=== PATIENT | female | born 1945 | race Caucasian/White ===

== ENCOUNTER 2019-04-12 22:17 | Inpatient (IN) | payer MEDICARE, OTHER ==
[~2019-04-12] VITALS: Ht 165.1 cm; Wt 84.4 kg
[2019-04-12 22:15] VITALS: BP 143/73
[2019-04-12] MEDS ORDERED: NS 1,000 ML IV SCH (22:46)
[2019-04-12] MEDS ORDERED: GLUCAGON FOR INJ 1 MG VIAL (J1610) SC PRN (23:00)
[2019-04-12] MEDS ORDERED: DEXTROSE 50% 50 ML SYRINGE IV PRN (23:00)
[2019-04-12] MEDS ORDERED: IPRATROPIUM 0.5MG/ALBUTEROL 2.5MG INH SOL UD 3ML (DUONEB)(J7620) NEB PRN (23:00)
[2019-04-12] MEDS ORDERED: GLUCOSE 4 GM CHEW TABLET PO PRN (23:00)
[2019-04-12 23:44] VITALS: BP 96/51
[2019-04-12 23:45] LABS: ABG BASE EXCESS 6.6 (-2.0-2.0); ABG HCO3 36.6 MEQ/L (22.0-26.0); ABG PARTIAL PRESSURE CO2 84.7 mmHg (35.0-45.0); ABG PARTIAL PRESSURE O2 107.5 mmHg (75.0-100.0); ABG STANDARD HCO3 30.5 MEQ/L (22.0-26.0); ABG TOTAL CO2 39.2 MEQ/L (23.0-31.0); ABG pH (ARTERIAL) 7.254 UNITS (7.350-7.450)
[2019-04-12 23:50] VITALS: BP 83/49
[2019-04-12 23:52] LABS: HEMATOCRIT 40.8 % (36.0-47.0); HEMOGLOBIN 12.7 g/dl (12.0-15.5); MEAN CORPUSCULAR HEMOGLOBIN 31.8 pg (27.0-33.0); MEAN CORPUSCULAR HGB CONC 31.1 g/dl (32.0-36.5); MEAN CORPUSCULAR VOLUME 102.3 fl (80.0-96.0); PLATELET COUNT, AUTOMATED 221 10^3/uL (150-450); RED BLOOD COUNT 3.99 10^6/uL (4.00-5.40); WHITE BLOOD COUNT 15.1 10^3/uL (4.0-10.0)
[2019-04-12 23:57] VITALS: BP 75/40
[2019-04-13] VITALS (48 sets, daily range): BP systolic 70–157; BP diastolic 32–74; O2SAT 87–97
[2019-04-13] MEDS ORDERED: NS 500 ML IV ONE
[2019-04-13 00:12] LABS: BLOOD UREA NITROGEN 22 MG/DL (7-18); CALCIUM LEVEL 7.7 MG/DL (8.8-10.2); CARBON DIOXIDE LEVEL 38 MEQ/L (21-32); CHLORIDE LEVEL 95 MEQ/L (98-107); CREATININE FOR GFR 0.91 MG/DL (0.55-1.30); GLOMERULAR FILTRATION RATE > 60.0 (>39); GLUCOSE, FASTING 167 MG/DL (70-100); POTASSIUM SERUM 4.2 MEQ/L (3.5-5.1); SODIUM LEVEL 137 MEQ/L (136-145)
--- NOTE | 2019-04-13 00:49 | REP ---
Clinical: COPD exacerbation. Comparison: 01/02/2015. Findings: Mediastinum and cardiac silhouette are normal. Lung billings demonstrate diffuse chronic-appearing interstitial changes and COPD. No focal consolidation. No effusion. No pneumothorax. Skeletal structures grossly intact. Impression: Chronic changes. No focal consolidation. Electronically Signed by Anurag Vann MD 04/13/2019 12:39 A
[2019-04-13 01:16] LABS: MAGNESIUM LEVEL 2.5 MG/DL (1.8-2.4); TROPONIN I 0.04 NG/ML (< 0.10)
[2019-04-13] MEDS ORDERED: PROAAER10 INH (01:56)
[2019-04-13] MEDS ORDERED: ATOR40TA75 PO (01:56)
[2019-04-13] MEDS ORDERED: OMEP-218 PO (01:56)
[2019-04-13] MEDS ORDERED: OLME20TA2 PO (01:56)
[2019-04-13] MEDS ORDERED: BREO1INH3 INH (01:56)
[2019-04-13] MEDS ORDERED: INCR1INH INH (01:56)
[2019-04-13] MEDS ORDERED: ATEN50TA2 PO (01:56)
[2019-04-13] MEDS ORDERED: METF500T13 PO (01:56)
[2019-04-13] MEDS ORDERED: IPRA6SP (01:56)
[2019-04-13] MEDS ORDERED: FURO40TA2 PO (01:56)
[2019-04-13] MEDS ORDERED: ESCI20TA PO (01:56)
[2019-04-13] MEDS ORDERED: RANI15TA PO (01:56)
[2019-04-13] MEDS: IPRATROPIUM 0.5MG/ALBUTEROL 2.5MG INH SOL UD 3ML (DUONEB)(J7620) NEB SCH ×4 (02:17→20:22)
[2019-04-13] MEDS: methylPREDNISolone INJ 125 MG/2 ML VIAL (J2930) IV SCH ×3 (02:49→17:41)
--- NOTE | 2019-04-13 03:30 | HPEPDOC ---
General Date of Admission Apr 12, 2019 at 22:17 Date of Service: Apr 12, 2019 Other Providers Primary care provider: Kathy Dooley Attending Physician: YONY SHOOK MD Chief Complaint The patient is a 73-year-old female admitted with a reason for visit of Respir atory Failure. Source: Family, Old records Exam Limitations: Clinical conditions Associated Symptoms: Unobtainable History of Present Illness Ms. Ang is a 73-year-old female who presents to [facility] as a direct admission from [facility]. Information regarding her presentation and admission to [facility] and transfer to [facility] is obtained from chart review. The patient had presented to [facility] with respiratory distress that had been worsening. Apparently she was having difficulty speaking and was only speaking in single words. Her shortness of breath was worsened by cough which appeared to improve with oxygen and sitting upright. She denied fevers, chills, chest pain. [facility] ED evaluation revealed elevated BP at 177/87 with a respiratory rate of 24 and oxygenation of 48%. An ABG revealed a pH of 7.16, pCO2 121.4, pO2 203.7. A CBC revealed a WBC 15.9, and a BMP revealed a BUN/Cr 20/0.6. BNP 632. [facility] ED ordered BiPAP, Duonebs, SoluMedrol, and Lasix after obtaining a CXR. Patient was also administered Ceftriaxone and Azithromycin. Decision was made to transfer patient to [facility] for further evaluation and consultation with pulmonary/critical care. ABG prior to transfer was pH 7.23, pCO2 99.6, pO2 82. Hospitalist, Dr. Shook, was the accepting physician at [facility]. Patient was previously hospitalized at [facility] in 2016 for similar symptoms. She had reported at that time shortness of breath, wheezing and bilateral lower extremity swelling over the prior several days. She had reported that her allergies had worsened and that she had developed a post-nasal drip. Furthermore, the patient reported a dry cough with clear mucous production. She had been using her nebulizer, but it was not providing relief. Apparently she had been speaking to a family member and they had noted that she appeared out of breath and was wheezing. The patient had measured her oxygen saturation and it ranged 87-88% on 2L NC. Patient said that she did wear oxygen at night, but had been wearing it throughout the day over the prior several days. She was a dmitted at that time for a COPD exacerbation and to rule out CHF. Home Medications Scheduled Atenolol (Atenolol) 50 Mg Tablet, 50 MG PO DAILY, (Reported) Atorvastatin Calcium (Atorvastatin Calcium) 40 Mg Tablet, 40 MG PO DAILY, (Reported) Escitalopram Oxalate (Escitalopram Oxalate) 20 Mg Tablet, 20 MG PO DAILY, (Reported) Fluticasone/Vilanterol (Breo Ellipta 200-25 Mcg INH) 1 Each Blst.w.dev, 1 PUFF INH DAILY, (Reported) Furosemide (Furosemide) 40 Mg Tablet, 40 MG PO BID, (Reported) MORNING AND NOON Ipratropium [place] (Ipratropium [place]) 15 Ml [place], 2 SPRAY NA BID, (Reported) Metformin HCl (Metformin HCl) 500 Mg Tablet, 500 MG PO DAILY, (Reported) Olmesartan Medoxomil (Olmesartan Medoxomil) 20 Mg Tablet, 40 MG PO DAILY, (Reported) Omeprazole (Omeprazole) 20 Mg Capsule.dr, 20 MG PO DAILY, (Reported) Ranitidine Hcl (Ranitidine HCl) 150 Mg Tablet, 1 TAB PO DAILY, (Reported) Umeclidinium [place] (Incruse Ellipta) 62.5 Mcg Blst.w.dev, 1 PUFF INH DAILY, (Reported) Scheduled PRN Albuterol Sulfate (Proair Hfa) 8.5 Gm Hfa.aer.ad, 2 PUFF INH Q4H PRN for SHORTNESS OF BREATH, (Reported) Allergies Coded Allergies: Penicillins (Verified Allergy, Severe, 04/13/19) shellfish derived (Verified Allergy, Severe, 04/13/19) Sulfa (Sulfonamide Antibiotics) (Verified Allergy, Intermediate, 04/13/19) Past Medical History Medical History 1. Anxiety 2. PUD 3. DM 4. GERD 5. DLP 6. COPD, emphysema 7. HTN 8. Pulmonary HTN 9. Allergies 10. Arthritis 11. Tobacco dependence Surgical History 1. Appendectomy 2. Cholecystectomy 3. Ectopic 4. Hysterectomy Family History Mother: Lung cancer Social History * Smoker: former Smoker (< 1/2 PPD), current smoker Alcohol: Denies Drugs: denies Patient lives independently with , Sarmad. They have been for 57 years. 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 They live in [place]. She is a former smoker of < 1/2 PPD and smoked for > 40 years. A-FIB/CHADSVASC A-FIB History Current/History of A-Fib/PAF?: No Review of Systems Other systems Unobtainable, although patient does indicate that she has no pain. Physical Examination General Exam: Positive: Cooperative Eye Exam: Positive: PERRLA, Conjunctiva & lids normal, EOMI; Negative: Sclera icteric, Ptosis ENT Exam: Positive: Atraumatic, Nares Patent Neck Exam: Positive: Supple; Negative: thyromegaly, Lymphadenopathy Chest Exam: Positive: Rhonchi, Diminished, Other (BiPAP in place); Negative: Clear to auscultation, Normal air movement Heart Exam: Positive: Rate Normal, Regular Rhythm, Normal S1, Normal S2; Negative: Gallops, Murmurs, Rubs Telemetry: Positive: Sinus Abdomen Exam: Positive: BS Hypoactive, Soft; Negative: Tenderness, Hepatospenomegaly, Mass, Hernia Extremity Exam: Positive: Normal pulses; Negative: Clubbing, Cyanosis, Edema, Tenderness, Swelling Skin Exam: Negative: Rash, Lesion Other physical findings 1. Portable chest x-ray - Chronic changes. No focal consolidation. Vital Signs Vital Signs Date Time Temp Pulse Resp B/P (MAP) Pulse Ox O2 Delivery O2 Flow Rate FiO2 04/12/19 22:41 40 04/12/19 22:15 97.4 87 22 143/73 (96) 98 Height (in): 65 Weight (kg): 81 BMI (kg): 29.7 Plan / VTE VTE Prophylaxis Ordered?: Yes (Lovenox 40mg SQ daily) Plan Plan 1. Acute hypercarbic respiratory failure 2/2 COPD exacerbation 2/2 viral syndrome BiPAP, pulmonology/critical care consulted ABG - pH 7.25, pCO2 84.7, pO2 107.5 Douneb's scheduled and PRN Methylprednisolone 60mg IV Q8H Smoking cessation counseling Ceftriaxone 1gm IV Q24H empirically Sputum gram stain and culture, respiratory panel Procalcitonin DNR/DNI (no central line, no pressor support, medications as needed for anxiety/agitation) HOB > 30, aspiration precautions Holding Incruse and BREO Monitor daily labs (leukocytosis --> although possibly secondary to steroids) 2. DM SSI Q6H, FBSB Q6H, hypoglycemic protocol NS @ 75 mLs/hr Holding oral hypoglycemic medications 3. Depression Continue Escitalopram 40mg PO daily 4. HTN Holding Furosemide and Olmesartan due to low blood pressures Continue Atenolol 50mg PO daily 6. DLP Holding Atorvastatin due to NPO 7. GERD Holding Ranitidine and Omeprazole due to NPO Disposition Admit: ICU Anticipated hospitalization: 2 nights Consult: Pulmonology/critical care, Dr. Billy IVF: Initiate (NS @ 75 mLs/hr) Diet: Make NPO Activity: Bedrest Therapy: PT Medications: Start Antibiotics (Ceftriaxone 1gm IV Q24H), Start Steroids (Methylprednisolone 60mg IV Q8H) Respiratory: Other Respiratory (smoking cessation counseling) Diagnostics: Check Labs, Repeat Labs in AM, Obtain Cultures, Other Diagnostics (Telemetry Q48H) Anticipated Discharge: Home Advanced Directives: Do Not Resuscitate (DNR), Do Not Intubate (DNI) GME ATTESTATION GME ATTESTATION My faculty preceptor for this patient encounter was physically present during the encounter and was fully available. All aspects of the patient interview, examination, medical decision making process, and medical care plan development were reviewed and approved by the faculty preceptor. The faculty preceptor is aware and concurs with the plan as stated in the body of this note and will attest to such by his/her cosignature. ATTENDING NOTE ATTENDING ATTESTATION: I performed a history and physical examination of the patient and discuss the management with the resident/SMOKE ROOM OPERATOR. I reviewed the resident's note and agree with the documented findings and plan of care. KATHY ALLAN DO Apr 12, 2019 23:37 YONY SHOOK MD Apr 13, 2019 19:23
[2019-04-13 03:54] LABS: BASO % 0.2 % (0.0-1.0); LYMPH # 0.6 10^3/uL (1.5-4.5); LYMPH % 3.7 % (24.0-44.0); MONO # 0.3 10^3/uL (0.0-0.8); MONO % 1.8 % (0.0-5.0); NEUTROPHILS % 93.4 % (36.0-66.0)
[2019-04-13 04:47] LABS: HEMATOCRIT 41.1 % (36.0-47.0); HEMOGLOBIN 12.7 g/dl (12.0-15.5); MEAN CORPUSCULAR HEMOGLOBIN 31.7 pg (27.0-33.0); MEAN CORPUSCULAR HGB CONC 30.9 g/dl (32.0-36.5); MEAN CORPUSCULAR VOLUME 102.5 fl (80.0-96.0); PLATELET COUNT, AUTOMATED 213 10^3/uL (150-450); RED BLOOD COUNT 4.01 10^6/uL (4.00-5.40); WHITE BLOOD COUNT 13.3 10^3/uL (4.0-10.0)
[2019-04-13 05:14] LABS: BLOOD UREA NITROGEN 21 MG/DL (7-18); CALCIUM LEVEL 7.7 MG/DL (8.8-10.2); CARBON DIOXIDE LEVEL 37 MEQ/L (21-32); CHLORIDE LEVEL 95 MEQ/L (98-107); CREATININE FOR GFR 0.72 MG/DL (0.55-1.30); GLOMERULAR FILTRATION RATE > 60.0 (>39); GLUCOSE, FASTING 176 MG/DL (70-100); POTASSIUM SERUM 4.2 MEQ/L (3.5-5.1); SODIUM LEVEL 136 MEQ/L (136-145)
[2019-04-13] MEDS: HumaLOG INSULIN (NovoLOG) PER UNIT SC SCH ×5 (06:11→23:57)
[2019-04-13 06:13] LABS: ABG BASE EXCESS 6.4 (-2.0-2.0); ABG HCO3 37.4 MEQ/L (22.0-26.0); ABG O2 SATURATION 98.8 % (95.0-99.0); ABG PARTIAL PRESSURE CO2 95.3 mmHg (35.0-45.0); ABG PARTIAL PRESSURE O2 140.7 mmHg (75.0-100.0); ABG STANDARD HCO3 30.3 MEQ/L (22.0-26.0); ABG TOTAL CO2 40.4 MEQ/L (23.0-31.0); ABG pH (ARTERIAL) 7.212 UNITS (7.350-7.450)
--- NOTE | 2019-04-13 07:08 | CR ---
DATE OF CONSULTATION: 04/13/2019 CHIEF COMPLAINT: Altered mental status, shortness of breath. HISTORY OF PRESENT ILLNESS: Ms. Ang is a 73-year-old female with a past medical history of chronic obstructive pulmonary disease (COPD) Gold stage 4 with chronic hypoxemic respiratory failure on 3 liters nasal cannula oxygen supplementation, obstructive sleep apnea (ASAEL) noncompliant with C-PAP, hypertension, hyperlipidemia, gastroesophageal reflux disease, nicotine dependence, pulmonary hypertension, and congestive heart failure (CHF) who presented with complaints of increasing weakness and shortness of breath. History was obtained from the patient's family and the chart as she is unable to provide a history currently. As per the family, the patient has had notable decline in her breathing for the past few months and also for the past few years. She had previously been hospitalized for her COPD for an exacerbation in [place] 3 years ago. Since then, they had noticed that she continues to have difficulty with her breathing and increasing functional limitation. She is also still currently smoking. The patient has been requiring frequent courses of steroids for her COPD. Most recently, she had been treated with a prednisone taper in March after being seen at our pulmonary office. The patient was still completing the prednisone taper. She was on approximately 5 mg or so the family believes. In the past few days, however, she had been complaining of increasing fatigue and weakness. She also had started noticing some diarrhea as well. When the family went to check on her today, the patient appeared to be in some respiratory distress as well as to be satting to the 80s while on her nasal cannula oxygen supplementation. The patient was initially refusing to go to the hospital, but after further discussion with the family she was agreeable to go to the hospital. The patient is the primary caregiver for her who is wheelchair bound. There is an aide in the house during the day, but there is no aide at night time. As per the family, the patient had not reported any fevers or chills. No chest pain. She does have a cough, but denied any changes in her sputum. She has chronic shortness of breath and dyspnea on exertion which they are unclear if it has been worsening, but they do feel she has been more winded recently. She does have a history of lower extremity edema for which she takes Lasix 40 mg twice a day. However, the family does feel that she has had increasing lower extremity edema in the past few days as well. The patient has been compliant with her maintenance inhalers. She has been using her albuterol nebulizer treatments more frequently than recommended. She also will start a treatment and then go take a break and smoke a cigarette and then come back and finish her nebulizer treatment. The patient was brought to [facility] where she was found to have acute on chronic hypercarbic respiratory failure. She was placed on BiPap in the ED and the patient was given Solu-Medrol, nitro paste and Lasix IV. She was also given ceftriaxone and azithromycin for antibiotics and then transferred to [facility] for further care. PAST MEDICAL/SURGICAL HISTORY: 1. Gold stage 4 COPD with chronic hypoxemic respiratory failure on nasal cannula oxygen. 2. Diabetes. 3. Hypertension. 4. Hyperlipidemia. 5. Chronic rhinitis with seasonal allergies. 6. Gastroesophageal reflux disease. 7. ASAEL noncompliant with C-PAP. 8. Nicotine dependence. 9. Pulmonary hypertension and CHF. 10. Tonsillectomy. 11. Cholecystectomy. 12. Hysterectomy. 13. Appendectomy. HOME MEDICATIONS: - Breo - Benicar - Lexapro - furosemide 40 mg twice a day - Lipitor - ProAir - Glucophage - albuterol - atenolol - omeprazole - Incruse - Tylenol - C-PAP ALLERGIES: - SULFA - PENICILLIN - SHRIMP SOCIAL HISTORY: The patient is a current active smoker, approximately 6-10 cigarettes a day, had previously smoked up to 2 or 3 packs a day since she was a teenager. FAMILY HISTORY: Mother from lung cancer. Father with a history of cirrhosis and history of alcohol disease. PHYSICAL EXAMINATION: Vitals: Temperature 98.1, pulse 78, respirations 22, blood pressure 82/37, O2 sat 88% on BiPap. General: The patient is an overweight female who is lying in the bed, is lethargic, opening eyes to verbal or tactile stimuli and answering some questions, but confused and very drowsy. HEENT: Normocephalic, atraumatic. Pupils are equal and reactive to light bilaterally. Moist mucous membranes. The patient is edentulous. Neck is supple. Trachea is midline. No palpable adenopathy. Cardiovascular: Regular rate and rhythm. Normal S1 and S2. Unable to appreciate any murmurs. Distant heart sounds. Pulmonary: Diminished breath sounds bilaterally with some coarse rhonchorous wheezes bilaterally. Abdomen is obese, mildly distended and nontender to palpation. Lower Extremities: There is some trace pitting edema to the bilateral lower extremities. LABORATORY DATA: WBC 15.1, hemoglobin 12.7, platelets 221. Chemistry: Sodium 137, potassium 4.2, chloride 95, bicarb 38, BUN 22, creatinine 0.91. Initial ABG at [facility] showed a pH of 7.16, pCO2 of 121 and a pO2 of 203.7. Repeat ABG on BiPap showed pH 7.23, pCO2 of 99.6 and pO2 of 82.0. The ABG here on BiPap in AVAPS mode showed pH 7.254, pCO2 of 84.7 and a pO2 of 107.5. IMAGING: Chest x-ray shows hyperinflated lungs with chronic emphysematous changes. No focal opacities or infiltrates. Some increased interstitial markings and evidence of prior granulomatous disease. ASSESSMENT/PLAN: Ms. Ang is a 73-year-old female with a history of end-stage COPD with chronic hypoxemic respiratory failure, hypertension, hyperlipidemia, pulmonary hypertension with CHF, and ASAEL noncompliant with C-PAP who presented initially to [facility] with complaints of increased lethargy, altered mental status and shortness of breath. The patient was found there to have acute on chronic hypercarbic respiratory failure likely secondary to COPD exacerbation. She was given Solu-Medrol, nebulizer treatments as well as Lasix and nitro paste, given broad spectrum antibiotics with Ceftriaxone and azithromycin and placed on BiPap and transferred here for further management. The patient had ABGs done on BiPap at [facility] which showed some slight improvement in her respiratory acidosis. Here in the intensive care unit (ICU), she continues to be lethargic, although improved apparently from her initial presentation. She is arousable and able to answer some questions, but is still very sleepy and will fall right back to sleep. Her repeat ABG here done on AVAPS mode continues to show significant respiratory acidosis. At this point, she has been on BiPap for a few hours and while her initial ABG is somewhat improved from her initial it is not significantly improved from her previous ABGs. Therefore, given her ABG and her mental status, the patient may need to be intubated and placed on mechanical ventilation, however, the patient's children are at the bedside including her son who is her secondary healthcare proxy and there has been extensive discussion with the family including her sister who is an RN. They had had previously had discussions with the patient about her goals of care and she had previously stated that she would not want intubation and mechanical ventilation if she would have a prolonged course of intubation. Given her decline in her respiratory status in the past few months and functionality that the family has noted as well as with her recurrent exacerbations requiring prednisone and her end-stage COPD with likely concomitant pulmonary hypertension, if she were to be intubated the patient will likely have a prolonged course of intubation and may be difficult to extubate. Given all that and given her previous history as well of being resistant to medical treatment and her ongoing smoking, the decision was made by the family and her healthcare proxy that she should be DO NOT RESUSCITATE (DNR) and DO NOT INTUBATE (DNI). The patient has also become hypotensive and discussion with the family was for no central line and no pressors at this time as well. - Cont AVAPs with TV 460, IPAP 10-25 cm H2O and EPAP 5 with RR 18 - f/u repeat ABG in the morning - Continue Solu-Medrol and DuoNebs for her acute COPD exacerbation. - Can continue with azithromycin for acute COPD exacerbation. Would discontinue ceftriaxone for now as there is no evidence of any focal opacities or infiltrate on her chest x-ray. She does have a leukocytosis, but she has not had any fevers. - family is agreeable to medications for anxiety or agitation if needed. - Will give her a bolus of fluids for her hypotension. She was previously given Lasix given evidence of some increased interstitial markings which may be secondary to her chronic emphysematous changes. She does have an elevated BNP at [place], however, suspect she has a component of chronic right-sided heart failure and pulmonary hypertension from her untreated ASAEL and her chronic hypoxemic lung disease. Would hold off on further diuretics at this time however given her hypotension. Deep vein thrombosis (DVT) prophylaxis with Lovenox. Code status DNR/DNI. Medical orders for life-sustaining treatment (MOLST) is filled in the chart. Total critical care time spent, not including any procedures approximately 1 hour and 50 minutes. MTDD
[2019-04-13] MEDS: ESCITALOPRAM OXALATE 10 MG TAB (LEXAPRO) PO SCH (09:00)
[2019-04-13] MEDS: DOXYCYCLINE HYCLATE 100 MG in D5W MINI-BAG PLUS 100 ML IV SCH ×2 (09:11→19:32)
[2019-04-13] MEDS: ENOXAPARIN 40 MG/0.4 ML SYRINGE (J1650) SC SCH (09:12)
[2019-04-13] MEDS: NICOTINE 7 MG/24 HR TRANSDERMAL TD SCH (09:13)
[2019-04-13 11:10] LABS: ABG HCO3 36.8 MEQ/L (22.0-26.0); ABG O2 SATURATION 94.2 % (95.0-99.0); ABG PARTIAL PRESSURE O2 67.9 mmHg (75.0-100.0); ABG STANDARD HCO3 31.7 MEQ/L (22.0-26.0); ABG TOTAL CO2 39.1 MEQ/L (23.0-31.0); ABG pH (ARTERIAL) 7.312 UNITS (7.350-7.450)
[2019-04-13 11:14] LABS: ABG PARTIAL PRESSURE CO2 74.5 mmHg (35.0-45.0)
[2019-04-13 14:45] LABS: NT-PRO BNP 755 PG/ML (<125)
--- NOTE | 2019-04-13 20:45 | IPNPDOC ---
Subjective Date Seen The patient was seen on 04/13/19. Subjective Chief Complaint/HPI The patient is currently on BiPAP, transferred overnight from an outside hospital for respiratory failure. She complaints of R hip pain and diarrhea. Her breathing has improved. General: Denies: ROS Unobtainable, Chills, Night Sweats, Fatigue, Malaise, Normal Appetite, Other Symptoms Constitutional: Denies: Chills, Fever, Malaise, Night Sweats, Weakness, Fatigue, Weight Loss, Lethargy, Other Eyes: Denies: Pain, Vision change, Conjunctivae inflammation, Eyelid inflammation, Redness, Other ENT: Denies: Head Aches, Ear Pain, Dysphagia, Sinus Congestion, Post Nasal Drip, Sore Throat, Epistaxis, Other Symptoms Skin: Denies: Rash, Lesions, Jaundice, Bruising, Itching, Dry, Breakdown, Nail Changes, Other Pulmonary: Reports: Dyspnea, Cough Cardiovascular: Denies: Chest Pain, Palpitations, Orthopnea, Paroxysmal Noc. Dyspnea, Edema, Lt Headedness, Other Symptoms Gastrointestinal: Denies: Nausea, Vomiting, Abdominal Pain, Diarrhea, Constipation, Melena, Hematochezia, Other Symptoms Genitourinary: Denies: Dysuria, Frequency, Incontinence, Hematuria, Retention, Other Symptoms Hematologic: Denies: Bruising, Bleeding Excessively, Petecchia, Purpura, Enlarged Lymph Nodes, Other Hematologic Endocrine: Denies: Polydipsia, Polyphagia, Polyuria, Heat Intolerance, Cold Intolerance, Other Endocrine Sx Musculoskeletal: Reports: Other Symptoms (R hip pain) Neurological: Denies: Weakness, Numbness, Incoordination, Change in speech, Confusion, Seizures, Other Symptoms Psych: Denies: Mood Normal, Anxiety, Depression, Memory Issues, Thoughts of Self Harm, Anger, Thoughts of Harming Other, Other Psych Objective Physical Examination General Exam: Positive: Cooperative Eye Exam: Positive: PERRLA, Conjunctiva & lids normal, EOMI; Negative: Sclera icteric, Ptosis ENT Exam: Positive: Atraumatic, Nares Patent Neck Exam: Positive: Supple; Negative: thyromegaly, Lymphadenopathy Chest Exam: Positive: Rhonchi, Diminished, Other (BiPAP in place); Negative: Clear to auscultation, Normal air movement Heart Exam: Positive: Rate Normal, Regular Rhythm, Normal S1, Normal S2; Negative: Gallops, Murmurs, Rubs Telemetry: Positive: Sinus Abdomen Exam: Positive: BS Hypoactive, Soft; Negative: Tenderness, Hepatospenomegaly, Mass, Hernia Extremity Exam: Positive: Normal pulses, Other (R hip tenderness); Negative: Clubbing, Cyanosis, Edema, Tenderness, Swelling Skin Exam: Negative: Rash, Lesion Assessment /Plan Problems (1) Respiratory failure Problem Text: # Hypercarbic respiratory failure - She was transferred from outside hospital. She was found to have a blood gas of pH 7.16 and pCO2 121.4. - She was put on BiPAP here and repeat gas has improved, showing pH 7.312, pCO2 74.5. - The patient will remain on BiPAP overnight, and repeat ABG will be sent tomorrow morning. If she continues to improve, she will be on NC O2 support. - This is likely COPD exacerbation, and will continue IV steroid. Will continue doxycycline 100 BID. CXR shows no evidence of pneumonia. The patient received a dose of ceftriaxone, given hypotension. - She also has pHTN and ASAEL, which seems to contribute to her currently respiratory failure. # Hypotension - Her BP was high at the outside hospital, but after she received nitroglycerein here, she became hypotensive down to SBP of 80. She received IV hydration, and currently, BP has improved. - The patient and family were against resuscitation or intubation. The patient is DNR and DNI. # Depression? - Continue citalopram. # HTN, CHF, DM, HLD - Hold BP meds, continue insulin Plan/VTE VTE Prophylaxis Ordered?: Yes (Lovenox 40mg SQ daily) Plan IVF: Initiate (NS @ 75 mLs/hr) Diet: Make NPO Activity: Bedrest Therapy: PT Medications: Start Antibiotics (Ceftriaxone 1gm IV Q24H), Start Steroids (Methylprednisolone 60mg IV Q8H) Respiratory: Other Respiratory (smoking cessation counseling) Diagnostics: Check Labs, Repeat Labs in AM, Obtain Cultures, Other Diagnostics (Telemetry Q48H) Anticipated Discharge: Home VS, I&O, 24H, Fishbone Vital Signs/I&O Vital Signs Date Time Temp Pulse Resp B/P (MAP) Pulse Ox O2 Delivery O2 Flow Rate FiO2 04/13/19 20:26 94 BIPAP/CPAP 40 04/13/19 20:25 76 25 04/13/19 20:00 97.2 114/55 (74) I&O- Last 24 Hours up to 6 AM 04/13/19 06:00 Intake Total 0 ml Output Total 500 ml Balance -500 ml Laboratory Data 24H LABS Laboratory Tests 2 04/12/19 23:27: Bedside Glucose (Misc Panel) 175H, Blood Gas Bicarbonate Standard 30.5H, Arterial Blood pH 7.254L, Arterial Blood Partial Pressure CO2 84.7*H, Arterial Blood Partial Pressure O2 107.5H, Arterial Blood Total CO2 39.2H, Arterial Blood HCO3 36.6H, Arterial Blood Base Excess 6.6H, Arterial Blood Oxygen Saturation 98.0 04/12/19 23:35: 04/12/19 23:42: Immature Granulocyte % (Auto) 0.9, Neutrophils (%) (Auto) 93.4H, Lymphocytes (%) (Auto) 3.7L, Monocytes (%) (Auto) 1.8, Eosinophils (%) (Auto) 0.0, Basophils (%) (Auto) 0.2, Immature Granulocyte # (Auto) 0.1H, Neutrophils # (Auto) 14.0H, Lymphocytes # (Auto) 0.6L, Monocytes # (Auto) 0.3, Eosinophils # (Auto) 0.0, Bas ophils # (Auto) 0.0, Nucleated Red Blood Cells % (auto) 0.0, Platelet Estimate , Anion Gap 4L, Glomerular Filtration Rate > 60.0, Blood Urea Nitrogen 22H, Creatinine 0.91, Sodium Level 137, Potassium Level 4.2, Chloride Level 95L, Carbon Dioxide Level 38H, Calcium Level 7.7L, Magnesium Level 2.5H, Troponin I 0.04 04/13/19 04:09: Lactic Acid Level 1.0 04/13/19 04:39: Nucleated Red Blood Cells % (auto) 0.0, Anion Gap 4L, Glomerular Filtration Rate > 60.0, Blood Urea Nitrogen 21H, Creatinine 0.72, Sodium Level 136, Potassium Level 4.2, Chloride Level 95L, Carbon Dioxide Level 37H, Calcium Level 7.7L, WC-Sji-[id number]-Type Natriuretic Peptide 755H 04/13/19 06:04: Blood Gas Bicarbonate Standard 30.3H, Arterial Blood pH 7.212*L, Arterial Blood Partial Pressure CO2 95.3*H, Arterial Blood Partial Pressure O2 140.7H, Arterial Blood Total CO2 40.4H, Arterial Blood HCO3 37.4H, Arterial Blood Base Excess 6.4H, Arterial Blood Oxygen Saturation 98.8 04/13/19 10:41: Blood Gas Bicarbonate Standard 31.7H, Arterial Blood pH 7.312L, Arterial Blood Partial Pressure CO2 74.5*H, Arterial Blood Partial Pressure O2 67.9L, Arterial Blood Total CO2 39.1H, Arterial Blood HCO3 36.8H, Arterial Blood Base Excess 8.0H, Arterial Blood Oxygen Saturation 94.2L 04/13/19 12:02: Bedside Glucose (Misc Panel) 204H 04/13/19 17:36: Bedside Glucose (Misc Panel) 138H CBC/BMP Laboratory Tests 04/12/19 23:42 Red Blood Count 3.99 L, Mean Corpuscular Volume 102.3 H, Mean Corpuscular Hemoglobin 31.8, Mean Corpuscular Hemoglobin Concent 31.1 L, Red Cell Distribution Width 13.7, Calcium Level 7.7 L 04/13/19 04:39 Red Blood Count 4.01, Mean Corpuscular Volume 102.5 H, Mean Corpuscular Hemoglobin 31.7, Mean Corpuscular Hemoglobin Concent 30.9 L, Red Cell Distribution Width 13.8, Calcium Level 7.7 L XENIA MENA MD Apr 13, 2019 20:45
[2019-04-13] MEDS ORDERED: cefTRIAXone SOD 1 GM in D5W MINI-BAG PLUS 50 ML IV SCH (21:00)
[2019-04-14] VITALS (22 sets, daily range): BP systolic 105–148; BP diastolic 54–75; O2SAT 92–99
[2019-04-14] MEDS: IPRATROPIUM 0.5MG/ALBUTEROL 2.5MG INH SOL UD 3ML (DUONEB)(J7620) NEB SCH ×4 (00:37→20:46)
[2019-04-14] MEDS: methylPREDNISolone INJ 125 MG/2 ML VIAL (J2930) IV SCH ×3 (02:54→18:18)
[2019-04-14 04:39] LABS: HEMATOCRIT 37.1 % (36.0-47.0); HEMOGLOBIN 11.4 g/dl (12.0-15.5); MEAN CORPUSCULAR HGB CONC 30.7 g/dl (32.0-36.5); MEAN CORPUSCULAR VOLUME 100.8 fl (80.0-96.0); PLATELET COUNT, AUTOMATED 202 10^3/uL (150-450); RED BLOOD COUNT 3.68 10^6/uL (4.00-5.40)
[2019-04-14 04:59] LABS: BLOOD UREA NITROGEN 21 MG/DL (7-18); CALCIUM LEVEL 8.3 MG/DL (8.8-10.2); CARBON DIOXIDE LEVEL 34 MEQ/L (21-32); CHLORIDE LEVEL 99 MEQ/L (98-107); CREATININE FOR GFR 0.58 MG/DL (0.55-1.30); GLOMERULAR FILTRATION RATE > 60.0 (>39); GLUCOSE, FASTING 141 MG/DL (70-100); POTASSIUM SERUM 4.2 MEQ/L (3.5-5.1); SODIUM LEVEL 137 MEQ/L (136-145)
[2019-04-14] MEDS: HumaLOG INSULIN (NovoLOG) PER UNIT SC SCH ×4 (05:44→23:49)
[2019-04-14 08:41] LABS: ABG BASE EXCESS 9.8 (-2.0-2.0); ABG HCO3 36.7 MEQ/L (22.0-26.0); ABG O2 SATURATION 96.9 % (95.0-99.0); ABG PARTIAL PRESSURE O2 90.2 mmHg (75.0-100.0); ABG STANDARD HCO3 33.6 MEQ/L (22.0-26.0); ABG TOTAL CO2 38.6 MEQ/L (23.0-31.0); ABG pH (ARTERIAL) 7.399 UNITS (7.350-7.450)
[2019-04-14 08:44] LABS: ABG PARTIAL PRESSURE CO2 60.8 mmHg (35.0-45.0)
[2019-04-14] MEDS: NICOTINE 7 MG/24 HR TRANSDERMAL TD SCH (08:45)
[2019-04-14] MEDS: ENOXAPARIN 40 MG/0.4 ML SYRINGE (J1650) SC SCH (08:45)
[2019-04-14] MEDS: DOXYCYCLINE HYCLATE 100 MG in D5W MINI-BAG PLUS 100 ML IV SCH ×2 (08:45→19:58)
[2019-04-14] MEDS: FUROSEMIDE 40 MG/4 ML VIAL (J1940) IV SCH ×2 (08:46→18:18)
[2019-04-14] MEDS: ESCITALOPRAM OXALATE 10 MG TAB (LEXAPRO) PO SCH (10:40)
--- NOTE | 2019-04-14 11:15 | CCN ---
DATE: 04/14/2019 Patient was seen and examined this morning. She has been on BiPAP overnight as well as yesterday during the day. Her ABGs have improved after some adjustments in the BiPAP settings and her mental status is also improved. The patient appears to be her baseline mental status. She feels her breathing has improved while she is wearing the BiPAP. When she is off of BIPAP for brief breaks with nasal cannula the patient desaturates into the 70s and she is markedly tachypneic. She denies any significant chest pains currently. No coughing. No fevers or chills. No nausea or vomiting. PHYSICAL EXAMINATION: Temperature 97.8, pulse 81, blood pressure 148/70, O2 sat 97% on BiPAP at 40% FiO2. Ins 800 mL, out 300 mL. General: The patient is an overweight female in is lying in bed in no acute distress on the BiPAP. HEENT: Normocephalic, atraumatic. Pupils are reactive. Mucous membranes are dry. Neck is supple. Trachea is midline. No palpable adenopathy. Cardiovascular: Regular rate and rhythm. Normal S1-S2. Unable to appreciate any murmurs. Pulmonary: Coarse wheezes with occasional more rhonchorous breath sounds on the right compared to the left. A few crackles at the bases. Abdomen is soft, nondistended, nontender. Lower extremities: There is no significant lower extremity edema noted bilaterally. Her legs are tender to palpation diffusely in the lower extremities. LABS: WBC 15.0, hemoglobin 11.4, platelets 202. Chemistries - sodium 137, potassium 4.2, chloride 99, bicarb 34, BUN 21, creatinine 0.58, glucose 141. BNP was 755, procalcitonin was negative. Microbiology: Human rhinovirus positive on the viral respiratory panel. ASSESSMENT/PLAN: Ms. 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 The patient was found to have acute on chronic hypercarbic respiratory failure likely secondary to a COPD exacerbation. The patient was placed on BiPAP at [facility] and her repeat ABGs had only minimal improvement. She was transferred to [facility] ICU for further management. Here the patient was placed on BiPAP with AVAPS mode and after some adjustments her ABGs have improved and her mental status has improved to baseline. Acute COPD exacerbation likely secondary to human rhinovirus. - Continue with Solu-Medrol 60 mg q8h. Will need a slow taper of her steroids depending on how her breathing is. - Continue with DuoNebs [id number]. - Ceftriaxone was discontinued yesterday and her procalcitonin came back this morning negative. She has no focal opacities or infiltrates and her viral panel was positive for rhinovirus. The patient does not require antibiotics for pneumonia. Can give azithromycin for COPD exacerbation; however, to complete a 5-day course. Patient has a history of CHF and pulmonary hypertension, is on Lasix at home. Her BNP is slightly elevated. - Will continue with Lasix 40 mg IV b.i.d. and monitor her ins and outs. She may require additional doses of Lasix as needed. - Will change the patient from AVAPS to BiPAP with setting of 13/5 with a respiratory rate of 20, and decrease FiO2 to 35%. Will follow-up repeat ABG in the morning unless patient has any change in her mental status, then would repeat a stat ABG. - Patient has CPAP at home for sleep apnea which she is noncompliant with. Discussed with the patient and her family that she should be using her CPAP nightly and that she should follow up with pulmonary for potential adjustment of her settings. DVT ppx Code status: DNR/DNI Total critical care time spent not including procedures approximately 40mins MTDD
--- NOTE | 2019-04-14 18:07 | IPNPDOC ---
Subjective Date Seen The patient was seen on 04/14/19. Subjective Chief Complaint/HPI The patient's breathing has slightly improved, but the patient has remained on BiPAP. She still has R sided hip and thigh pain. Denies fevers, chills, nausea, vomiting, or diarrhea. General: Denies: ROS Unobtainable, Chills, Night Sweats, Fatigue, Malaise, Normal Appetite, Other Symptoms Constitutional: Denies: Chills, Fever, Malaise, Night Sweats, Weakness, Fatigue, Weight Loss, Lethargy, Other Eyes: Denies: Pain, Vision change, Conjunctivae inflammation, Eyelid inflammation, Redness, Other ENT: Denies: Head Aches, Ear Pain, Dysphagia, Sinus Congestion, Post Nasal Drip, Sore Throat, Epistaxis, Other Symptoms Skin: Denies: Rash, Lesions, Jaundice, Bruising, Itching, Dry, Breakdown, Nail Changes, Other Pulmonary: Reports: Dyspnea, Cough Cardiovascular: Denies: Chest Pain, Palpitations, Orthopnea, Paroxysmal Noc. Dyspnea, Edema, Lt Headedness, Other Symptoms Gastrointestinal: Denies: Nausea, Vomiting, Abdominal Pain, Diarrhea, Constipation, Melena, Hematochezia, Other Symptoms Genitourinary: Denies: Dysuria, Frequency, Incontinence, Hematuria, Retention, Other Symptoms Hematologic: Denies: Bruising, Bleeding Excessively, Petecchia, Purpura, Enlarged Lymph Nodes, Other Hematologic Endocrine: Denies: Polydipsia, Polyphagia, Polyuria, Heat Intolerance, Cold Intolerance, Other Endocrine Sx Musculoskeletal: Reports: Leg Pain Neurological: Denies: Weakness, Numbness, Incoordination, Change in speech, Confusion, Seizures, Other Symptoms Psych: Denies: Mood Normal, Anxiety, Depression, Memory Issues, Thoughts of Self Harm, Anger, Thoughts of Harming Other, Other Psych Objective Physical Examination General Exam: Positive: Cooperative Eye Exam: Positive: PERRLA, Conjunctiva & lids normal, EOMI; Negative: Sclera icteric, Ptosis ENT Exam: Positive: Atraumatic, Nares Patent Neck Exam: Positive: Supple; Negative: thyromegaly, Lymphadenopathy Chest Exam: Positive: Rhonchi, Diminished, Other (BiPAP in place); Negative: Clear to auscultation, Normal air movement Heart Exam: Positive: Rate Normal, Regular Rhythm, Normal S1, Normal S2; Negative: Gallops, Murmurs, Rubs Telemetry: Positive: Sinus Abdomen Exam: Positive: BS Hypoactive, Soft; Negative: Tenderness, Hepatospenomegaly, Mass, Hernia Extremity Exam: Positive: Normal pulses, Other (R hip tenderness); Negative: Clubbing, Cyanosis, Edema, Tenderness, Swelling Skin Exam: Negative: Rash, Lesion Assessment /Plan Problems (1) Respiratory failure Problem Text: # Hypercarbic respiratory failure - She was transferred from outside hospital. She was found to have a blood gas of pH 7.16 and pCO2 121.4. - ABG this morning shows lower pCO2, improving. - Following Dr. Billy's management. The patient was switched from AVAPS to BiPAP today. Will repeat ABG tomorrow morning. Per patient and Dr. Billy, the patient has not been compliant with CPAP for pHTN. - This is likely COPD exacerbation, and will continue IV steroid. Continue doxyc ycline 100 BID. CXR shows no evidence of pneumonia. The patient received a dose of ceftriaxone, given hypotension. - She also has pHTN and ASAEL, which seems to contribute to her currently respiratory failure. # Hypotension - Resolved. - Her BP was high at the outside hospital, but after she received nitroglycerein here, she became hypotensive down to SBP of 80. She received IV hydration, and currently, BP has improved. - The patient and family were against resuscitation or intubation. The patient is DNR and DNI. # Depression? - Continue citalopram. # HTN, CHF, DM, HLD - Hold BP meds, continue insulin Plan/VTE VTE Prophylaxis Ordered?: Yes (Lovenox 40mg SQ daily) Plan IVF: Initiate (NS @ 75 mLs/hr) Diet: Make NPO Activity: Bedrest Therapy: PT Medications: Start Antibiotics (Ceftriaxone 1gm IV Q24H), Start Steroids ( Methylprednisolone 60mg IV Q8H) Respiratory: Other Respiratory (smoking cessation counseling) Diagnostics: Check Labs, Repeat Labs in AM, Obtain Cultures, Other Diagnostics (Telemetry Q48H) Anticipated Discharge: Home VS, I&O, 24H, Fishbone Vital Signs/I&O Vital Signs Date Time Temp Pulse Resp B/P (MAP) Pulse Ox O2 Delivery O2 Flow Rate FiO2 04/14/19 16:00 40 04/14/19 16:00 98.2 98 24 140/65 (90) 92 8.0 04/14/19 04:00 BIPAP/CPAP I&O- Last 24 Hours up to 6 AM 04/14/19 06:00 Intake Total 800 ml Output Total 830 ml Balance -30 ml Laboratory Data 24H LABS Laboratory Tests 2 04/13/19 23:46: Bedside Glucose (Misc Panel) 184H 04/14/19 03:58: Nucleated Red Blood Cells % (auto) 0.0, Anion Gap 4L, Glomerular Filtration Rate > 60.0, Blood Urea Nitrogen 21H, Creatinine 0.58, Sodium Level 137, Potassium Level 4.2, Chloride Level 99, Carbon Dioxide Level 34H, Calcium Level 8.3L 04/14/19 08:33: Blood Gas Bicarbonate Standard 33.6H, Arterial Blood pH 7.399, Arterial Blood Partial Pressure CO2 60.8*H, Arterial Blood Partial Pressure O2 90.2, Arterial Blood Total CO2 38.6H, Arterial Blood HCO3 36.7H, Arterial Blood Base Excess 9.8H, Arterial Blood Oxygen Saturation 96.9 04/14/19 12:07: Bedside Glucose (Misc Panel) 216H 04/14/19 18:00: Bedside Glucose (Misc Panel) 168H CBC/BMP Laboratory Tests 04/14/19 03:58 Red Blood Count 3.68 L, Mean Corpuscular Volume 100.8 H, Mean Corpuscular Hemoglobin 31.0, Mean Corpuscular Hemoglobin Concent 30.7 L, Red Cell Distributi on Width 13.7, Calcium Level 8.3 L Microbiology Microbiology 04/14/19 Respiratory Virus Panel (PCR) ([facility]) - Final, Complete Human Rhinovirus/Enterovirus XENIA MENA MD Apr 14, 2019 18:07
[2019-04-15] VITALS (13 sets, daily range): BP systolic 117–162; BP diastolic 59–94; O2SAT 90–100
[2019-04-15] MEDS: IPRATROPIUM 0.5MG/ALBUTEROL 2.5MG INH SOL UD 3ML (DUONEB)(J7620) NEB SCH ×2 (01:33→08:12)
[2019-04-15] MEDS: methylPREDNISolone INJ 125 MG/2 ML VIAL (J2930) IV SCH ×3 (02:59→19:48)
[2019-04-15 04:24] LABS: HEMATOCRIT 38.7 % (36.0-47.0); HEMOGLOBIN 12.4 g/dl (12.0-15.5); MEAN CORPUSCULAR HEMOGLOBIN 31.7 pg (27.0-33.0); PLATELET COUNT, AUTOMATED 186 10^3/uL (150-450); RED BLOOD COUNT 3.91 10^6/uL (4.00-5.40); WHITE BLOOD COUNT 12.3 10^3/uL (4.0-10.0)
[2019-04-15 04:42] LABS: BLOOD UREA NITROGEN 28 MG/DL (7-18); CALCIUM LEVEL 8.2 MG/DL (8.8-10.2); CARBON DIOXIDE LEVEL 41 MEQ/L (21-32); CHLORIDE LEVEL 95 MEQ/L (98-107); CREATININE FOR GFR 0.69 MG/DL (0.55-1.30); GLOMERULAR FILTRATION RATE > 60.0 (>39); GLUCOSE, FASTING 156 MG/DL (70-100); POTASSIUM SERUM 3.6 MEQ/L (3.5-5.1); SODIUM LEVEL 141 MEQ/L (136-145)
[2019-04-15] MEDS: HumaLOG INSULIN (NovoLOG) PER UNIT SC SCH ×4 (05:16→21:18)
[2019-04-15 05:48] LABS: ABG BASE EXCESS 11.3 (-2.0-2.0); ABG HCO3 37.4 MEQ/L (22.0-26.0); ABG O2 SATURATION 93.9 % (95.0-99.0); ABG PARTIAL PRESSURE CO2 54.9 mmHg (35.0-45.0); ABG PARTIAL PRESSURE O2 68.5 mmHg (75.0-100.0); ABG TOTAL CO2 39.1 MEQ/L (23.0-31.0); ABG pH (ARTERIAL) 7.451 UNITS (7.350-7.450)
[2019-04-15] MEDS: DOXYCYCLINE HYCLATE 100 MG in D5W MINI-BAG PLUS 100 ML IV SCH ×2 (08:54→19:48)
[2019-04-15] MEDS: ENOXAPARIN 40 MG/0.4 ML SYRINGE (J1650) SC SCH (08:55)
[2019-04-15] MEDS: ESCITALOPRAM OXALATE 10 MG TAB (LEXAPRO) PO SCH (08:55)
[2019-04-15] MEDS: NICOTINE 7 MG/24 HR TRANSDERMAL TD SCH (08:55)
[2019-04-15] MEDS: FUROSEMIDE 40 MG/4 ML VIAL (J1940) IV SCH ×2 (08:56→17:13)
[2019-04-15] MEDS ORDERED: SODIUM CHLORIDE NASAL 0.65% SPRAY BTL (OCEAN) PRN (10:00)
[2019-04-15] MEDS: FORMOTEROL FUMARATE 20 MCG/2 ML INHALATION SOLUTION (PERFOROMIST) INH SCH ×2 (11:50→19:15)
[2019-04-15] MEDS: BUDESONIDE 0.5 MG/2 ML INHALATION SUSPENSION INH SCH ×2 (11:50→19:15)
[2019-04-15] MEDS: SODIUM CHLORIDE NASAL 0.65% SPRAY BTL (OCEAN) PRN (13:10)
[2019-04-15] MEDS: ALBUTEROL SULFATE 2.5 MG/0.5 ML INH NEB SOLN NEB SCH ×2 (14:03→19:15)
[2019-04-15] MEDS: ACETAMINOPHEN TAB 650MG DOSE (2X325MG) PO PRN (14:11)
--- NOTE | 2019-04-15 21:13 | ECHO ---
DATE OF PROCEDURE: 04/15/2019 Date of : 1945 Age: 73 Gender: Female Height: 65 inches Weight: 176 pounds Body surface area: 1.87 meters squared Inpatient: Intensive care unit (ICU), room 3202 REFERRING PHYSICIAN: Dr. Shaneka Rodriguez INDICATION: Congestive heart failure (CHF). MEASUREMENTS: 2D Measurements: RV: 3.8 cm LV: 4.4 cm Septum: 1.1 cm Posterior wall: 1.1 cm Aortic root: 2.6 cm LA: 3.5 cm LVEF: 60% Doppler Measurements: AV: 1.8 meters per second LVOT: 1.3 meters per second LVOT diameter: 1.8 cm MV-E: 95, A: 108, EA ratio: 0.9 Early mitral deceleration time: 317 milliseconds E prime: 7.2, A prime: 9, E/E prime ratio: 13.2 Pulmonary capillary wedge pressure: 17 mmHg PV: 1.15 meters per second Pulmonary artery acceleration time: 88 milliseconds RVSP: 43 mmHg IVC: 2.0 cm COMMENTS: Normal sinus rhythm without intraventricular conduction disturbance. M-mode two-dimensional echocardiography was performed with pulsed, continuous wave, color flow and tissue Doppler studies. Normal left ventricular size with wall thickness upper limits of normal. Localized proximal septal flattening suggestive of right ventricular pressure overload but otherwise normal left ventricular wall motion. Left atrial size upper limits of normal with Doppler evidence of an impairment of left ventricular (LV) diastolic function and current estimated mean left atrial pressure was at least mildly increased. Normal right heart chamber sizes and motion with mild right ventricular free wall hypertrophy and Doppler evidence of moderate pulmonary hypertension. Normal inferior vena cava (IVC) size and collapse against an elevated central venous pressure. Mild aortic valvular sclerosis without functional abnormality. Mild mitral annular calcification with very mild insufficiency. Normal appearing tricuspid valve with mild insufficiency. No apparent intracardiac mass or pericardial effusion.
--- NOTE | 2019-04-15 21:53 | IPNPDOC ---
Subjective Date Seen The patient was seen on 04/15/19. Subjective Chief Complaint/HPI The patient feels much better than when she was first brought in here. She denies chest pain, palpitation. Denies abdominal pain. The last time she had a VM was 5 days ago. Denies a fever, chills, nausea or vomiting. Denies dysuria. General: Reports: Fatigue Constitutional: Denies: Chills, Fever, Malaise, Night Sweats, Weakness, Fatigue, Weight Loss, Lethargy, Other Eyes: Denies: Pain, Vision change, Conjunctivae inflammation, Eyelid inflammation, Redness, Other ENT: Denies: Head Aches, Ear Pain, Dysphagia, Sinus Congestion, Post Nasal Drip, Sore Throat, Epistaxis, Other Symptoms Skin: Denies: Rash, Lesions, Jaundice, Bruising, Itching, Dry, Breakdown, Nail Changes, Other Pulmonary: Reports: Dyspnea Cardiovascular: Denies: Chest Pain, Palpitations, Orthopnea, Paroxysmal Noc. Dyspnea, Edema, Lt Headedness, Other Symptoms Gastrointestinal: Denies: Nausea, Vomiting, Abdominal Pain, Diarrhea, Constipation, Melena, Hematochezia, Other Symptoms Genitourinary: Denies: Dysuria, Frequency, Incontinence, Hematuria, Retention, Other Symptoms Hematologic: Denies: Bruising, Bleeding Excessively, Petecchia, Purpura, Enlarg ed Lymph Nodes, Other Hematologic Endocrine: Denies: Polydipsia, Polyphagia, Polyuria, Heat Intolerance, Cold Intolerance, Other Endocrine Sx Musculoskeletal: Reports: Joint Pain Neurological: Denies: Weakness, Numbness, Incoordination, Change in speech, Confusion, Seizures, Other Symptoms Psych: Denies: Mood Normal, Anxiety, Depression, Memory Issues, Thoughts of Self Harm, Anger, Thoughts of Harming Other, Other Psych Objective Physical Examination General Exam: Positive: Cooperative Eye Exam: Positive: PERRLA, Conjunctiva & lids normal, EOMI; Negative: Sclera icteric, Ptosis ENT Exam: Positive: Atraumatic, Nares Patent Neck Exam: Positive: Supple; Negative: thyromegaly, Lymphadenopathy Chest Exam: Positive: Rhonchi, Diminished, Other (BiPAP in place); Negative: Clear to auscultation, Normal air movement Heart Exam: Positive: Rate Normal, Regular Rhythm, Normal S1, Normal S2; Negative: Gallops, Murmurs, Rubs Telemetry: Positive: Sinus Abdomen Exam: Positive: BS Hypoactive, Soft; Negative: Tenderness, Hepatospenomegaly, Mass, Hernia Extremity Exam: Positive: Normal pulses, Other (R hip tenderness); Negative: Clubbing, Cyanosis, Edema, Tenderness, Swelling Skin Exam: Negative: Rash, Lesion Assessment /Plan Problems (1) Respiratory failure Problem Text: # Hypercarbic respiratory failure - ABG shows continued improvement, and currently, she is on NC off of BiPAP. - Following ICU team's management. - This is likely COPD exacerbation, and will continue IV steroid. Continue doxycycline 100 BID. CXR shows no evidence of pneumonia. The patient received a dose of ceftriaxone, given hypotension. - She also has pHTN and ASAEL, which seems to contribute to her currently respiratory failure. # Hypotension - Resolved. - Her BP was high at the outside hospital, but after she received nitroglycerein here, she became hypotensive down to SBP of 80. She received IV hydration, and currently, BP has improved. - The patient and family were against resuscitation or intubation. The patient is DNR and DNI. # Depression? - Continue citalopram. # HTN, CHF, DM, HLD - Will continue to monitor vital signs. Continue insulin. Plan/VTE VTE Prophylaxis Ordered?: Yes (Lovenox 40mg SQ daily) Plan IVF: Initiate (NS @ 75 mLs/hr) Diet: Make NPO Activity: Bedrest Therapy: PT Medications: Start Antibiotics (Ceftriaxone 1gm IV Q24H), Start Steroids (Methylprednisolone 60mg IV Q8H) Respiratory: Other Respiratory (smoking cessation counseling) Diagnostics: Check Labs, Repeat Labs in AM, Obtain Cultures, Other Diagnostics (Telemetry Q48H) Anticipated Discharge: Home VS, I&O, 24H, [facility] Vital Signs/I&O Vital Signs Date Time Temp Pulse Resp B/P (MAP) Pulse Ox O2 Delivery O2 Flow Rate FiO2 04/15/19 20:00 97.6 110 24 158/72 (100) 91 6.0 04/15/19 08:12 35 04/15/19 04:00 BIPAP/CPAP I&O- Last 24 Hours up to 6 AM 04/15/19 06:00 Intake Total 100 ml Output Total 3910 ml Balance -3810 ml Laboratory Data 24H LABS Laboratory Tests 2 04/14/19 23:46: Bedside Glucose (Misc Panel) 189H 04/15/19 04:10: Nucleated Red Blood Cells % (auto) 0.0, Anion Gap 5L, Glomerular Filtration Rate > 60.0, Blood Urea Nitrogen 28H, Creatinine 0.69, Sodium Level 141, Potassium Level 3.6, Chloride Level 95L, Carbon Dioxide Level 41H, Calcium Level 8.2L 04/15/19 05:41: Blood Gas Bicarbonate Standard 35.0H, Arterial Blood pH 7.451H, Arterial Blood Partial Pressure CO2 54.9H, Arterial Blood Partial Pressure O2 68.5L, Arterial Blood Total CO2 39.1H, Arterial Blood HCO3 37.4H, Arterial Blood Base Excess 11.3H, Arterial Blood Oxygen Saturation 93.9L 04/15/19 12:44: Bedside Glucose (Misc Panel) 240H 04/15/19 17:05: Bedside Glucose (Misc Panel) 215H 04/15/19 21:14: Bedside Glucose (Misc Panel) 302H CBC/BMP Laboratory Tests 04/15/19 04:10 Red Blood Count 3.91 L, Mean Corpuscular Volume 99.0 H, Mean Corpuscular Hemoglobin 31.7, Mean Corpuscular Hemoglobin Concent 32.0, Red Cell Distribution Width 13.8, Calcium Level 8.2 L Microbiology Microbiology 04/15/19 Gram Stain - Final, Resulted 04/15/19 Sputum Culture, Resulted Pending 04/14/19 Respiratory Virus Panel (PCR) ([facility]) - Final, Complete Human Rhinovirus/Enterovirus XENIA MENA MD Apr 15, 2019 21:53
[2019-04-16] VITALS (13 sets, daily range): BP systolic 115–174; BP diastolic 56–87; O2SAT 87–98
[2019-04-16] MEDS: ALBUTEROL SULFATE 2.5 MG/0.5 ML INH NEB SOLN NEB SCH ×4 (01:13→19:40)
[2019-04-16 06:12] LABS: HEMATOCRIT 41.1 % (36.0-47.0); HEMOGLOBIN 13.1 g/dl (12.0-15.5); MEAN CORPUSCULAR HEMOGLOBIN 31.7 pg (27.0-33.0); MEAN CORPUSCULAR HGB CONC 31.9 g/dl (32.0-36.5); MEAN CORPUSCULAR VOLUME 99.5 fl (80.0-96.0); PLATELET COUNT, AUTOMATED 212 10^3/uL (150-450); RED BLOOD COUNT 4.13 10^6/uL (4.00-5.40); WHITE BLOOD COUNT 11.2 10^3/uL (4.0-10.0)
[2019-04-16 06:45] LABS: BLOOD UREA NITROGEN 30 MG/DL (7-18); CALCIUM LEVEL 8.5 MG/DL (8.8-10.2); CARBON DIOXIDE LEVEL 48 MEQ/L (21-32); CHLORIDE LEVEL 92 MEQ/L (98-107); CREATININE FOR GFR 0.74 MG/DL (0.55-1.30); GLOMERULAR FILTRATION RATE > 60.0 (>39); GLUCOSE, FASTING 196 MG/DL (70-100); POTASSIUM SERUM 3.6 MEQ/L (3.5-5.1); SODIUM LEVEL 141 MEQ/L (136-145)
[2019-04-16] MEDS: HumaLOG INSULIN (NovoLOG) PER UNIT SC SCH ×4 (07:32→21:54)
[2019-04-16] MEDS: BUDESONIDE 0.5 MG/2 ML INHALATION SUSPENSION INH SCH (09:14)
[2019-04-16] MEDS: FORMOTEROL FUMARATE 20 MCG/2 ML INHALATION SOLUTION (PERFOROMIST) INH SCH (09:14)
[2019-04-16] MEDS: ENOXAPARIN 40 MG/0.4 ML SYRINGE (J1650) SC SCH (09:59)
[2019-04-16] MEDS: ESCITALOPRAM OXALATE 10 MG TAB (LEXAPRO) PO SCH (09:59)
[2019-04-16] MEDS: DOXYCYCLINE HYCLATE 100 MG in D5W MINI-BAG PLUS 100 ML IV SCH ×2 (10:00→20:01)
[2019-04-16] MEDS: NICOTINE 7 MG/24 HR TRANSDERMAL TD SCH (10:00)
[2019-04-16] MEDS: methylPREDNISolone INJ 125 MG/2 ML VIAL (J2930) IV SCH (10:01)
[2019-04-16] MEDS: FUROSEMIDE 40 MG/4 ML VIAL (J1940) IV SCH (10:08)
--- NOTE | 2019-04-16 16:10 | IPNPDOC ---
Subjective Date Seen The patient was seen on 04/16/19. Subjective Chief Complaint/HPI The patient is short of breath, slowly improving. She uses BiPAP at night time and remains on high flow NC during the daytime. She denies a fever, chills, cough, and sputum production. Denies dysuria or urgency. General: Reports: Fatigue, Malaise Constitutional: Reports: Malaise Eyes: Denies: Pain, Vision change, Conjunctivae inflammation, Eyelid inflammation, Redness, Other ENT: Denies: Head Aches, Ear Pain, Dysphagia, Sinus Congestion, Post Nasal Drip, Sore Throat, Epistaxis, Other Symptoms Skin: Denies: Rash, Lesions, Jaundice, Bruising, Itching, Dry, Breakdown, Nail Changes, Other Pulmonary: Reports: Dyspnea Cardiovascular: Denies: Chest Pain, Palpitations, Orthopnea, Paroxysmal Noc. Dyspnea, Edema, Lt Headedness, Other Symptoms Gastrointestinal: Denies: Nausea, Vomiting, Abdominal Pain, Diarrhea, Constipation, Melena, Hematochezia, Other Symptoms Genitourinary: Denies: Dysuria, Frequency, Incontinence, Hematuria, Retention, Other Symptoms Hematologic: Denies: Bruising, Bleeding Excessively, Petecchia, Purpura, Enlarged Lymph Nodes, Other Hematologic Endocrine: Denies: Polydipsia, Polyphagia, Polyuria, Heat Intolerance, Cold Intolerance, Other Endocrine Sx Musculoskeletal: Denies: Neck Pain, Back Pain, Shoulder Pain, Arm Pain, Hand Pain, Leg Pain, Foot Pain, Joint Pain, Muscle Pain, Spasms, Other Symptoms Neurological: Denies: Weakness, Numbness, Incoordination, Change in speech, Confusion, Seizures, Other Symptoms Psych: Denies: Mood Normal, Anxiety, Depression, Memory Issues, Thoughts of Self Harm, Anger, Thoughts of Harming Other, Other Psych Objective Physical Examination General Exam: Positive: Cooperative Eye Exam: Positive: PERRLA, Conjunctiva & lids normal, EOMI; Negative: Sclera icteric, Ptosis ENT Exam: Positive: Atraumatic, Nares Patent Neck Exam: Positive: Supple; Negative: thyromegaly, Lymphadenopathy Chest Exam: Positive: Rhonchi, Diminished, Other (BiPAP in place); Negative: Clear to auscultation, Normal air movement Heart Exam: Positive: Rate Normal, Regular Rhythm, Normal S1, Normal S2; Negative: Gallops, Murmurs, Rubs Telemetry: Positive: Sinus Abdomen Exam: Positive: BS Hypoactive, Soft; Negative: Tenderness, Hepatospenomegaly, Mass, Hernia Extremity Exam: Positive: Normal pulses, Other (R hip tenderness); Negative: Clubbing, Cyanosis, Edema, Tenderness, Swelling Skin Exam: Negative: Rash, Lesion Assessment /Plan Problems (1) Respiratory failure Problem Text: # Hypercarbic respiratory failure - ABG shows continued improvement, and currently, she uses high flow NC during the daytime, and BiPAP at night. Clinically, she is slowly improving. - Following ICU team's management. - This is likely COPD exacerbation, and will continue IV steroid. Continue doxycycline 100 BID. CXR shows no evidence of pneumonia. The patient received a dose of ceftriaxone, given hypotension. - She also has pHTN and ASAEL, which seems to contribute to her currently respiratory failure. - She was receiving lasix IV 40 BID, but given uptrending Bicarb, will decrease it to 20 BID IV. Discuss[address] with Dr. Sutton. # Hypotension - Resolved. - Her BP was high at the outside hospital, but after she received nitroglycerein here, she became hypotensive down to SBP of 80. She received IV hydration, and currently, BP has improved. - The patient and family were against resuscitation or intubation. The patient is DNR and DNI. # Depression? - Continue citalopram. # HTN, CHF, DM, HLD - Will continue to monitor vital signs. Continue insulin. Plan/VTE VTE Prophylaxis Ordered?: Yes (Lovenox 40mg SQ daily) Plan IVF: Initiate (NS @ 75 mLs/hr) Diet: Make NPO Activity: Bedrest Therapy: PT Medications: Start Antibiotics (Ceftriaxone 1gm IV Q24H), Start Steroids (Methylprednisolone 60mg IV Q8H) Respiratory: Other Respiratory (smoking cessation counseling) Diagnostics: Check Labs, Repeat Labs in AM, Obtain Cultures, Other Diagnostics (Telemetry Q48H) Anticipated Discharge: Home VS, I&O, 24H, [facility] Vital Signs/I&O Vital Signs Date Time Temp Pulse Resp B/P (MAP) Pulse Ox O2 Delivery O2 Flow Rate FiO2 04/16/19 14:00 104 20 143/67 (92) 96 8.0 04/16/19 12:00 98.5 04/15/19 08:12 35 04/15/19 04:00 BIPAP/CPAP I&O- Last 24 Hours up to 6 AM 04/16/19 06:00 Intake Total 1400 ml Output Total 2050 ml Balance -650 ml Laboratory Data 24H LABS Laboratory Tests 2 04/15/19 17:05: Bedside Glucose (Misc Panel) 215H 04/15/19 21:14: Bedside Glucose (Misc Panel) 302H 04/16/19 05:59: Nucleated Red Blood Cells % (auto) 0.0, Anion Gap 1L, Glomerular Filtration Rate > 60.0, Blood Urea Nitrogen 30H, Creatinine 0.74, Sodium Level 141, Potassium Level 3.6, Chloride Level 92L, Carbon Dioxide Level 48H, Calcium Level 8.5L 04/16/19 07:24: Bedside Glucose (Misc Panel) 192H 04/16/19 12:21: Bedside Glucose (Misc Panel) 178H CBC/BMP Laboratory Tests 04/16/19 05:59 Red Blood Count 4.13, Mean Corpuscular Volume 99.5 H, Mean Corpuscular Hemoglobin 31.7, Mean Corpuscular Hemoglobin Concent 31.9 L, Red Cell Distribution Width 13.7, Calcium Level 8.5 L Microbiology Microbiology 04/15/19 Gram Stain - Final, Resulted 04/15/19 Sputum Culture, Resulted Pending 04/14/19 Respiratory Virus Panel (PCR) ([facility]) - Final, Complete Human Rhinovirus/Enterovirus XENIA MENA MD Apr 16, 2019 16:10
[2019-04-16] MEDS: FUROSEMIDE 20 MG/2 ML VIAL (J1940) IV SCH (17:46)
[2019-04-16] MEDS: SYMBICORT 160/4.5MCG INHALER 6GM INH SCH (19:40)
[2019-04-16] MEDS: methylPREDNISolone INJ 40 MG/1 ML VIAL (J2920) IV SCH (20:01)
[2019-04-17] VITALS (10 sets, daily range): BP systolic 102–163; BP diastolic 54–70; O2SAT 87–94
[2019-04-17] MEDS: ALBUTEROL SULFATE 2.5 MG/0.5 ML INH NEB SOLN NEB SCH ×4 (01:08→20:00)
[2019-04-17 05:16] LABS: HEMATOCRIT 41.7 % (36.0-47.0); HEMOGLOBIN 12.9 g/dl (12.0-15.5); MEAN CORPUSCULAR HEMOGLOBIN 31.2 pg (27.0-33.0); MEAN CORPUSCULAR HGB CONC 30.9 g/dl (32.0-36.5); MEAN CORPUSCULAR VOLUME 100.7 fl (80.0-96.0); PLATELET COUNT, AUTOMATED 178 10^3/uL (150-450); RED BLOOD COUNT 4.14 10^6/uL (4.00-5.40); WHITE BLOOD COUNT 11.2 10^3/uL (4.0-10.0)
[2019-04-17 05:36] LABS: BLOOD UREA NITROGEN 31 MG/DL (7-18); CALCIUM LEVEL 8.3 MG/DL (8.8-10.2); CARBON DIOXIDE LEVEL 35 MEQ/L (21-32); CHLORIDE LEVEL 93 MEQ/L (98-107); CREATININE FOR GFR 0.69 MG/DL (0.55-1.30); GLOMERULAR FILTRATION RATE > 60.0 (>39); GLUCOSE, FASTING 194 MG/DL (70-100); POTASSIUM SERUM 3.8 MEQ/L (3.5-5.1); SODIUM LEVEL 134 MEQ/L (136-145)
[2019-04-17] MEDS: SYMBICORT 160/4.5MCG INHALER 6GM INH SCH ×2 (08:24→20:21)
[2019-04-17] MEDS: methylPREDNISolone INJ 40 MG/1 ML VIAL (J2920) IV SCH (08:44)
[2019-04-17] MEDS: HumaLOG INSULIN (NovoLOG) PER UNIT SC SCH ×4 (08:44→21:00)
[2019-04-17] MEDS: DOXYCYCLINE HYCLATE 100 MG in D5W MINI-BAG PLUS 100 ML IV SCH ×2 (08:44→21:26)
[2019-04-17] MEDS: FUROSEMIDE 20 MG/2 ML VIAL (J1940) IV SCH ×2 (08:45→17:14)
[2019-04-17] MEDS: ENOXAPARIN 40 MG/0.4 ML SYRINGE (J1650) SC SCH (08:45)
[2019-04-17] MEDS: ESCITALOPRAM OXALATE 10 MG TAB (LEXAPRO) PO SCH (08:45)
[2019-04-17] MEDS: NICOTINE 7 MG/24 HR TRANSDERMAL TD SCH (08:46)
--- NOTE | 2019-04-17 12:54 | IPNPDOC ---
Subjective Date Seen The patient was seen on 04/17/19. Subjective Chief Complaint/HPI The patient feels much better. After she had inhaled steroid, she had difficulty breathing. It was converted to symbicort, and she has tolerated it well. She admitted that she did not use CPAP, and was smoking at home. She states that she will work on this and be more compliant. Denies a fever, chills, nausea, vomiting, or diarrhea. General: Reports: Fatigue Constitutional: Denies: Chills, Fever, Malaise, Night Sweats, Weakness, Fatigue, Weight Loss, Lethargy, Other Eyes: Denies: Pain, Vision change, Conjunctivae inflammation, Eyelid inflammation, Redness, Other ENT: Denies: Head Aches, Ear Pain, Dysphagia, Sinus Congestion, Post Nasal Drip, Sore Throat, Epistaxis, Other Symptoms Skin: Denies: Rash, Lesions, Jaundice, Bruising, Itching, Dry, Breakdown, Nail Changes, Other Pulmonary: Reports: Dyspnea, Cough Cardiovascular: Denies: Chest Pain, Palpitations, Orthopnea, Paroxysmal Noc. Dyspnea, Edema, Lt Headedness, Other Symptoms Gastrointestinal: Denies: Nausea, Vomiting, Abdominal Pain, Diarrhea, Constipation, Melena, Hematochezia, Other Symptoms Genitourinary: Denies: Dysuria, Frequency, Incontinence, Hematuria, Retention, Other Symptoms Hematologic: Denies: Bruising, Bleeding Excessively, Petecchia, Purpura, Enlarged Lymph Nodes, Other Hematologic Endocrine: Denies: Polydipsia, Polyphagia, Polyuria, Heat Intolerance, Cold Intolerance, Other Endocrine Sx Musculoskeletal: Reports: Other Symptoms (hip pain) Neurological: Denies: Weakness, Numbness, Incoordination, Change in speech, Confusion, Seizures, Other Symptoms Psych: Denies: Mood Normal, Anxiety, Depression, Memory Issues, Thoughts of Self Harm, Anger, Thoughts of Harming Other, Other Psych Objective Physical Examination General Exam: Positive: Cooperative Eye Exam: Positive: PERRLA, Conjunctiva & lids normal, EOMI; Negative: Sclera icteric, Ptosis ENT Exam: Positive: Atraumatic, Nares Patent Neck Exam: Positive: Supple; Negative: thyromegaly, Lymphadenopathy Chest Exam: Positive: Rhonchi, Diminished, Other (BiPAP in place); Negative: Clear to auscultation, Normal air movement Heart Exam: Positive: Rate Normal, Regular Rhythm, Normal S1, Normal S2; Negative: Gallops, Murmurs, Rubs Telemetry: Positive: Sinus Abdomen Exam: Positive: BS Hypoactive, Soft; Negative: Tenderness, Hepatospenomegaly, Mass, Hernia Extremity Exam: Positive: Normal pulses, Other (R hip tenderness); Negative: Clubbing, Cyanosis, Edema, Tenderness, Swelling Skin Exam: Negative: Rash, Lesion Assessment /Plan Problems (1) Respiratory failure Problem Text: # Hypercarbic respiratory failure - She continues to improved. She uses BiPAP at night time, and uses O2 NC during the daytime. - IV steroid is being tapered down. Continue solumedrol 40 BID. Continue doxycycline 100 BID to finish 5 day course, tomorrow is the last day. CXR shows no evidence of pneumonia. The patient received a dose of ceftriaxone, given hypotension. - She also has pHTN and ASAEL, which seems to contribute to her currently respiratory failure. - Bicarb has improved. Continue lasix 20 BID IV. # Hypotension - Resolved. Currently, BP is coming back to her baseline. - Her BP was high at the outside hospital, but after she received nitroglycerein here, she became hypotensive down to SBP of 80. She received IV hydration, and currently, BP has improved. - The patient and family were against resuscitation or intubation. The patient is DNR and DNI. # Depression? - Continue citalopram. # HTN, CHF, DM, HLD - Will continue to monitor vital signs. Continue insulin. Plan/VTE VTE Prophylaxis Ordered?: Yes (Lovenox 40mg SQ daily) Plan IVF: Initiate (NS @ 75 mLs/hr) Diet: Make NPO Activity: Bedrest Therapy: PT Medications: Start Antibiotics (Ceftriaxone 1gm IV Q24H), Start Steroids (Methylprednisolone 60mg IV Q8H) Respiratory: Other Respiratory (smoking cessation counseling) Diagnostics: Check Labs, Repeat Labs in AM, Obtain Cultures, Other Diagnostics (Telemetry Q48H) Anticipated Discharge: Home VS, I&O, 24H, [facility] Vital Signs/I&O Vital Signs Date Time Temp Pulse Resp B/P (MAP) Pulse Ox O2 Delivery O2 Flow Rate FiO2 04/17/19 05:00 87 BIPAP/CPAP 10.0 04/17/19 04:00 96.9 75 20 143/70 (94) 04/15/19 08:12 35 I&O- Last 24 Hours up to 6 AM 04/17/19 06:00 Intake Total 2030 ml Output Total 1890 ml Balance 140 ml Laboratory Data 24H LABS Laboratory Tests 2 04/16/19 17:45: Bedside Glucose (Misc Panel) 212H 04/16/19 21:46: Bedside Glucose (Misc Panel) 258H 04/17/19 04:38: Nucleated Red Blood Cells % (auto) 0.0, Anion Gap 6L, Glomerular Filtration Rate > 60.0, Blood Urea Nitrogen 31H, Creatinine 0.69, Sodium Level 134L, Potassium Level 3.8, Chloride Level 93L, Carbon Dioxide Level 35H, Calcium Level 8.3L 04/17/19 08:27: Bedside Glucose (Misc Panel) 180H 04/17/19 11:38: Bedside Glucose (Misc Panel) 243H CBC/BMP Laboratory Tests 04/17/19 04:38 Red Blood Count 4.14, Mean Corpuscular Volume 100.7 H, Mean Corpuscular Hemoglobin 31.2, Mean Corpuscular Hemoglobin Concent 30.9 L, Red Cell Distribution Width 13.6, Calcium Level 8.3 L Microbiology Microbiology 04/15/19 Gram Stain - Final, Complete 04/15/19 Sputum Culture - Final, Complete Yeast Like Organism 04/14/19 Respiratory Virus Panel (PCR) ([facility]) - Final, Complete Human Rhinovirus/Enterovirus XENIA MENA MD Apr 17, 2019 12:53
[2019-04-18] VITALS (7 sets, daily range): BP systolic 119–155; BP diastolic 58–80; O2SAT 93
[2019-04-18] MEDS: ALBUTEROL SULFATE 2.5 MG/0.5 ML INH NEB SOLN NEB SCH ×4 (01:48→20:00)
[2019-04-18 04:25] LABS: HEMATOCRIT 45.3 % (36.0-47.0); HEMOGLOBIN 14.5 g/dl (12.0-15.5); PLATELET COUNT, AUTOMATED 189 10^3/uL (150-450); RED BLOOD COUNT 4.53 10^6/uL (4.00-5.40); WHITE BLOOD COUNT 12.2 10^3/uL (4.0-10.0)
[2019-04-18 04:50] LABS: BLOOD UREA NITROGEN 25 MG/DL (7-18); CALCIUM LEVEL 8.1 MG/DL (8.8-10.2); CARBON DIOXIDE LEVEL 34 MEQ/L (21-32); CHLORIDE LEVEL 93 MEQ/L (98-107); CREATININE FOR GFR 0.66 MG/DL (0.55-1.30); GLOMERULAR FILTRATION RATE > 60.0 (>39); GLUCOSE, FASTING 120 MG/DL (70-100); SODIUM LEVEL 133 MEQ/L (136-145)
[2019-04-18] MEDS: SYMBICORT 160/4.5MCG INHALER 6GM INH SCH ×2 (07:44→21:00)
[2019-04-18] MEDS: FUROSEMIDE 20 MG/2 ML VIAL (J1940) IV SCH (08:19)
[2019-04-18] MEDS: HumaLOG INSULIN (NovoLOG) PER UNIT SC SCH ×4 (08:19→20:27)
[2019-04-18] MEDS: ESCITALOPRAM OXALATE 10 MG TAB (LEXAPRO) PO SCH (08:20)
[2019-04-18] MEDS: predniSONE 20 MG TAB PO SCH (08:20)
[2019-04-18] MEDS: NICOTINE 7 MG/24 HR TRANSDERMAL TD SCH (08:20)
[2019-04-18] MEDS: ENOXAPARIN 40 MG/0.4 ML SYRINGE (J1650) SC SCH (08:20)
--- NOTE | 2019-04-18 11:45 | IPNPDOC ---
Subjective Date Seen The patient was seen on 04/18/19. Subjective Chief Complaint/HPI Breathing has improved. She has no difficulty finishing full sentences on 4-5L O2. Appetite is good, and she does not have other complaints. She had a good BM last night. General: Denies: ROS Unobtainable, Chills, Night Sweats, Fatigue, Malaise, Normal Appetite, Other Symptoms Constitutional: Denies: Chills, Fever, Malaise, Night Sweats, Weakness, Fatigue, Weight Loss, Lethargy, Other Eyes: Denies: Pain, Vision change, Conjunctivae inflammation, Eyelid inflammation, Redness, Other ENT: Denies: Head Aches, Ear Pain, Dysphagia, Sinus Congestion, Post Nasal Drip, Sore Throat, Epistaxis, Other Symptoms Skin: Denies: Rash, Lesions, Jaundice, Bruising, Itching, Dry, Breakdown, Nail Changes, Other Pulmonary: Reports: Dyspnea, Cough Cardiovascular: Denies: Chest Pain, Palpitations, Orthopnea, Paroxysmal Noc. Dyspnea, Edema, Lt Headedness, Other Symptoms Gastrointestinal: Denies: Nausea, Vomiting, Abdominal Pain, Diarrhea, Constipation, Melena, Hematochezia, Other Symptoms Genitourinary: Denies: Dysuria, Frequency, Incontinence, Hematuria, Retention, Other Symptoms Hematologic: Denies: Bruising, Bleeding Excessively, Petecchia, Purpura, Enlarged Lymph Nodes, Other Hematologic Endocrine: Denies: Polydipsia, Polyphagia, Polyuria, Heat Intolerance, Cold Intolerance, Other Endocrine Sx Musculoskeletal: Reports: Other Symptoms (hip pain) Neurological: Denies: Weakness, Numbness, Incoordination, Change in speech, Confusion, Seizures, Other Symptoms Psych: Denies: Mood Normal, Anxiety, Depression, Memory Issues, Thoughts of Rachael f Harm, Anger, Thoughts of Harming Other, Other Psych Objective Physical Examination General Exam: Positive: Cooperative Eye Exam: Positive: PERRLA, Conjunctiva & lids normal, EOMI; Negative: Sclera icteric, Ptosis ENT Exam: Positive: Atraumatic, Nares Patent Neck Exam: Positive: Supple; Negative: thyromegaly, Lymphadenopathy Chest Exam: Positive: Rhonchi, Diminished, Other (BiPAP in place); Negative: Clear to auscultation, Normal air movement Heart Exam: Positive: Rate Normal, Regular Rhythm, Normal S1, Normal S2; Negative: Gallops, Murmurs, Rubs Telemetry: Positive: Sinus Abdomen Exam: Positive: BS Hypoactive, Soft; Negative: Tenderness, Hepatospenomegaly, Mass, Hernia Extremity Exam: Positive: Normal pulses, Other (R hip tenderness); Negative: Clubbing, Cyanosis, Edema, Tenderness, Swelling Skin Exam: Negative: Rash, Lesion Assessment /Plan Problems (1) Respiratory failure Problem Text: # Hypercarbic respiratory failure - She continues to improved. She uses BiPAP at night time, and uses O2 NC during the daytime. - IV steroid is tapered off, and starting prednisone today. Also finished 5 day course of doxycycline. - She also has pHTN and ASAEL, which seems to contribute to her currently respiratory failure. - Bicarb has improved. Lasix IV 20 BID was converted to her home medication, 40 BID today. # Hypotension and a history of hypertension - Resolved. Currently, BP is coming back to her baseline. Today, starting atenolol, her home medication. - The patient and family were against resuscitation or intubation. The patient is DNR and DNI. # Depression? - Continue citalopram. # HTN, CHF, DM, HLD - Will continue to monitor vital signs. Continue insulin. - Restarting atenolol, her home medication. # Nicotine dependency - Nicotine patch # Disposition - The patient has improved clinically, but she still needs to recover physically. Will work with PO and OT. Plan/VTE VTE Prophylaxis Ordered?: Yes (Lovenox 40mg SQ daily) Plan IVF: Initiate (NS @ 75 mLs/hr) Diet: Make NPO Activity: Bedrest Therapy: PT Medications: Start Antibiotics (Ceftriaxone 1gm IV Q24H), Start Steroids (Methylprednisolone 60mg IV Q8H) Respiratory: Other Respiratory (smoking cessation counseling) Diagnostics: Check Labs, Repeat Labs in AM, Obtain Cultures, Other Diagnostics (Telemetry Q48H) Anticipated Discharge: Home VS, I&O, 24H, [facility] Vital Signs/I&O Vital Signs Date Time Temp Pulse Resp B/P (MAP) Pulse Ox O2 Delivery O2 Flow Rate FiO2 04/18/19 04:02 98.1 82 18 122/65 (84) 93 6.0 04/18/19 01:48 BIPAP/CPAP 04/15/19 08:12 35 I&O- Last 24 Hours up to 6 AM 04/18/19 06:00 Intake Total 1360 ml Output Total 1400 ml Balance -40 ml Laboratory Data 24H LABS Laboratory Tests 2 04/17/19 11:38: Bedside Glucose (Misc Panel) 243H 04/17/19 17:10: Bedside Glucose (Misc Panel) 294H 04/17/19 21:22: Bedside Glucose (Misc Panel) 166H 04/18/19 04:00: Nucleated Red Blood Cells % (auto) 0.0, Anion Gap 6L, Glomerular Filtration Rate > 60.0, Blood Urea Nitrogen 25H, Creatinine 0.66, Sodium Level 133L, Potassium Level 5.0#, Chloride Level 93L, Carbon Dioxide Level 34H, Calcium Level 8.1L CBC/BMP Laboratory Tests 04/18/19 04:00 Red Blood Count 4.53, Mean Corpuscular Volume 100.0 H, Mean Corpuscular Hemoglobin 32.0, Mean Corpuscular Hemoglobin Concent 32.0, Red Cell Distribution Width 13.5, Calcium Level 8.1 L Microbiology Microbiology 04/15/19 Gram Stain - Final, Complete 04/15/19 Sputum Culture - Final, Complete Yeast Like Organism 04/14/19 Respiratory Virus Panel (PCR) ([facility]) - Final, Complete Human Rhinovirus/Enterovirus XENIA MENA MD Apr 18, 2019 11:45
[2019-04-18] MEDS: FUROSEMIDE 40 MG TAB PO SCH (17:50)
[2019-04-19] MEDS: ALBUTEROL SULFATE 2.5 MG/0.5 ML INH NEB SOLN NEB SCH ×4 (02:00→20:00)
[2019-04-19 06:00] VITALS: BP 114/48
[2019-04-19 06:43] LABS: HEMATOCRIT 41.1 % (36.0-47.0); HEMOGLOBIN 12.8 g/dl (12.0-15.5); MEAN CORPUSCULAR HEMOGLOBIN 31.3 pg (27.0-33.0); MEAN CORPUSCULAR HGB CONC 31.1 g/dl (32.0-36.5); MEAN CORPUSCULAR VOLUME 100.5 fl (80.0-96.0); PLATELET COUNT, AUTOMATED 184 10^3/uL (150-450); RED BLOOD COUNT 4.09 10^6/uL (4.00-5.40); WHITE BLOOD COUNT 9.6 10^3/uL (4.0-10.0)
[2019-04-19 07:13] LABS: BLOOD UREA NITROGEN 23 MG/DL (7-18); CARBON DIOXIDE LEVEL 45 MEQ/L (21-32); CHLORIDE LEVEL 91 MEQ/L (98-107); CREATININE FOR GFR 0.68 MG/DL (0.55-1.30); GLOMERULAR FILTRATION RATE > 60.0 (>39); GLUCOSE, FASTING 120 MG/DL (70-100); POTASSIUM SERUM 3.1 MEQ/L (3.5-5.1); SODIUM LEVEL 139 MEQ/L (136-145)
[2019-04-19] MEDS: SYMBICORT 160/4.5MCG INHALER 6GM INH SCH ×2 (07:38→19:58)
[2019-04-19] MEDS ORDERED: POTASSIUM CHLORIDE 10 MEQ SR TABLET PO ONE (07:45)
[2019-04-19] MEDS: FUROSEMIDE 40 MG TAB PO SCH ×2 (08:15→18:08)
[2019-04-19] MEDS: predniSONE 20 MG TAB PO SCH (08:15)
[2019-04-19] MEDS: ESCITALOPRAM OXALATE 10 MG TAB (LEXAPRO) PO SCH (08:15)
[2019-04-19] MEDS: ATENOLOL 50 MG TAB PO SCH (08:15)
[2019-04-19] MEDS: NICOTINE 7 MG/24 HR TRANSDERMAL TD SCH (08:16)
[2019-04-19] MEDS: ENOXAPARIN 40 MG/0.4 ML SYRINGE (J1650) SC SCH (08:17)
[2019-04-19] MEDS: HumaLOG INSULIN (NovoLOG) PER UNIT SC SCH ×5 (08:17→21:00)
[2019-04-19] MEDS: SODIUM CHLORIDE NASAL 0.65% SPRAY BTL (OCEAN) PRN (08:17)
[2019-04-19] MEDS: FLUTICASONE PROP 0.05% NASAL SPRAY 16 GM (FLONASE) NARES SCH (09:00)
--- NOTE | 2019-04-19 10:35 | IPNPDOC ---
Date Seen The patient was seen on 04/19/19. Progress Note SUBJECTIVE: Patient is a 73-year-old female with hypercarbic respiratory failure. Patient is evaluated at bedside this morning. She continues to wear oxygen and currently has it at 6L. She is home O2 dependent and usually on 2L. She does not feel short of breath, wheezing, or having chest pain. She states that she feels as though her sinuses are "acting up." She feels congested and has a productive cough of white/clear sputum which she attributes to post-nasal drainage. OBJECTIVE PHYSICAL EXAMINATION: VITAL SIGNS: Please see below. GENERAL: Obese female, alert and conversant, resting in the recumbent position in hospital bed, no acute distress. HEENT: Atraumatic, normocephalic, PERRL, EOMI, wears spectacles. CARDIOVASCULAR: Regular rate and rhythm, normal S1 and S2, no murmur, rub, click. RESPIRATORY: Diminished breath sounds throughout, no audible wheeze, rhonchi, or crackles. ABDOMINAL: Round, soft, non-tender, non-distended. EXTREMITIES: TEDs in place, no appreciable peripheral edema noted, peripheral pulses equal and symmetrical, +2. NEUROLOGICAL: CN II-XII grossly intact. PSYCHOLOGICAL: Mood and affect appropriate. LABORATORY DATA, IMAGING STUDIES, MICROBIOLOGY: Please see below. Echocardiogram: Normal sinus rhythm without intraventricular conduction disturbance. M-mode two-dimensional echocardiography was performed with pulsed, continuous wave, color flow and tissue Doppler studies. Normal left ventricular size with wall thickness upper limits of normal. Localized proximal septal flattening suggestive of right ventricular pressure overload but otherwise normal left ventricular wall motion. Left atrial size upper limits of normal with Doppler evidence of an impairment of left ventricular (LV) diastolic function and current estimated mean left atrial pressure was at least mildly increased. Normal right heart chamber sizes and motion with mild right ventricular free wall hypertrophy and Doppler evidence of moderate pulmonary hypertension. Normal inferior vena cava (IVC) size and collapse against an elevated central venous pressure. Mild aortic valvular sclerosis without functional abnormality. Mild mitral annular calcification with very mild insufficiency. Normal appearing tricuspid valve with mild insufficiency. No apparent intracardiac mass or pericardial effusion. DVT prophylaxis ordered?: Lovenox 40mg SQ daily. ASSESSMENT AND PLAN: This is a 73-year-old female with hypercarbic respiratory failure. PROBLEMS: 1. Hypercarbic respiratory failure 2/2 COPD exacerbation Improved S/P PO Doxycycline C/W Prednisone 40mg PO daily S/P SoluMedrol IV and Ceftriaxone IV C/W BiPAP nightly and oxygen during the day; on 2L at home; currently on 6L; titrate oxygen C/W Proventil nebulizer scheduled and PRN, Symbicort S/P Duonebs, Formoterol, Budesonide C/W aspiration precautions C/W PT, OT --> recommend continued rehabilitation once discharged 2. HFpEF with LVEF 60% C/W Furosemide 40mg PO BID Echocardiogram as noted above 3. Allergies with post-nasal drip Started Fluticasone nasal spray C/W saline nasal spray 4. DM C/W SSI AC/HS, FSBS AC/HS, hypoglycemic protocol, consistent carbohydrate t 5. Tobacco dependent C/W Nicotine replacement C/W smoking cessation counseling 6. Depression C/W Escitalopram 7. HTN C/W Atenolol DISPOSITION: Pending clinical improvement. Discharge to rehabilitation once medically cleared. I saw and evaluated the patient. I agree with the findings and plan of care as documented in the resident's note VS, I&O, 24H, [facility] Vital Signs/I&O Vital Signs Date Time Temp Pulse Resp B/P (MAP) Pulse Ox O2 Delivery O2 Flow Rate FiO2 04/19/19 08:15 74 114/48 04/19/19 06:00 97.0 17 97 8.0 04/18/19 01:48 BIPAP/CPAP 04/15/19 08:12 35 I&O- Last 24 Hours up to 6 AM 04/19/19 06:00 Intake Total 720 ml Output Total 1000 ml Balance -280 ml Laboratory Data 24H LABS Laboratory Tests 2 04/18/19 12:05: Bedside Glucose (Misc Panel) 194H 04/18/19 16:38: Bedside Glucose (Misc Panel) 218H 04/18/19 19:56: Bedside Glucose (Misc Panel) 276H 04/19/19 05:42: Nucleated Red Blood Cells % (auto) 0.0, Anion Gap 3L, Glomerular Filtration Rate > 60.0, Blood Urea Nitrogen 23H, Creatinine 0.68, Sodium Level 139, Potassium Level 3.1#L, Chloride Level 91L, Carbon Dioxide Level 45H, Calcium Level 8.0L CBC/BMP Laboratory Tests 04/19/19 05:42 Red Blood Count 4.09, Mean Corpuscular Volume 100.5 H, Mean Corpuscular Hemoglobin 31.3, Mean Corpuscular Hemoglobin Concent 31.1 L, Red Cell Distribution Width 13.8, Calcium Level 8.0 L Microbiology Microbiology 04/15/19 Gram Stain - Final, Complete 04/15/19 Sputum Culture - Final, Complete Yeast Like Organism 04/14/19 Respiratory Virus Panel (PCR) ([facility]) - Final, Complete Human Rhinovirus/Enterovirus KATHY ALLAN DO Apr 19, 2019 10:35 DONYA MARIE MD Apr 23, 2019 16:33
[2019-04-19 14:00] VITALS: BP 120/52
[2019-04-19 22:00] VITALS: BP 122/62
[2019-04-20] MEDS: ALBUTEROL SULFATE 2.5 MG/0.5 ML INH NEB SOLN NEB PRN ×2 (00:26→23:32)
[2019-04-20] MEDS: ALBUTEROL SULFATE 2.5 MG/0.5 ML INH NEB SOLN NEB SCH ×4 (02:00→20:00)
[2019-04-20 06:00] VITALS: BP 148/74
[2019-04-20] MEDS ORDERED: NYSTATIN 500,000 U/5 ML SUSP UDC SS PRN (07:45)
[2019-04-20] MEDS: HumaLOG INSULIN (NovoLOG) PER UNIT SC SCH ×4 (07:50→20:44)
[2019-04-20] MEDS: predniSONE 20 MG TAB PO SCH (07:51)
[2019-04-20] MEDS: NICOTINE 7 MG/24 HR TRANSDERMAL TD SCH (07:51)
[2019-04-20] MEDS: ESCITALOPRAM OXALATE 10 MG TAB (LEXAPRO) PO SCH (07:52)
[2019-04-20] MEDS: ATENOLOL 50 MG TAB PO SCH (07:52)
[2019-04-20] MEDS: FUROSEMIDE 40 MG TAB PO SCH ×2 (07:52→17:17)
[2019-04-20] MEDS: ENOXAPARIN 40 MG/0.4 ML SYRINGE (J1650) SC SCH (07:53)
[2019-04-20] MEDS: FLUTICASONE PROP 0.05% NASAL SPRAY 16 GM (FLONASE) NARES SCH (07:53)
[2019-04-20] MEDS: SYMBICORT 160/4.5MCG INHALER 6GM INH SCH ×2 (08:00→19:45)
[2019-04-20 14:00] VITALS: BP 113/58
--- NOTE | 2019-04-20 15:50 | IPNPDOC ---
Date Seen The patient was seen on 04/20/19. Progress Note SUBJECTIVE: Patient is a 73-year-old female with hypercarbic respiratory failure. Patient is evaluated at bedside this morning. She is sitting up in a chair at bedside. She continues to describe post-nasal drainage which keeps her up at night. Flonase has been added to her medication regimen which she states she takes at home and it does help. She denies chest pain, shortness of breath, fever, night sweats, chills. OBJECTIVE PHYSICAL EXAMINATION: VITAL SIGNS: Please see below. GENERAL: Obese female, alert and conversant, sitting up in a chair at bedside, no acute distress. HEENT: Atraumatic, normocephalic, PERRL, EOMI, wears spectacles. CARDIOVASCULAR: Regular rate and rhythm, normal S1 and S2, no murmur, rub, click. RESPIRATORY: Diminished breath sounds throughout, no audible wheeze, rhonchi, or crackles. ABDOMINAL: Round, soft, non-tender, non-distended. EXTREMITIES: No appreciable peripheral edema noted, peripheral pulses equal and symmetrical, +2. NEUROLOGICAL: CN II-XII grossly intact. PSYCHOLOGICAL: Mood and affect appropriate. LABORATORY DATA, IMAGING STUDIES, MICROBIOLOGY: Please see below. Echocardiogram: Normal sinus rhythm without intraventricular conduction disturbance. M-mode two-dimensional echocardiography was performed with pulsed, continuous wave, color flow and tissue Doppler studies. Normal left ventricular size with wall thickness upper limits of normal. Locali zed proximal septal flattening suggestive of right ventricular pressure overload but otherwise normal left ventricular wall motion. Left atrial size upper limits of normal with Doppler evidence of an impairment of left ventricular (LV) diastolic function and current estimated mean left atrial pressure was at least mildly increased. Normal right heart chamber sizes and motion with mild right ventricular free wall hypertrophy and Doppler evidence of moderate pulmonary hypertension. Normal inferior vena cava (IVC) size and collapse against an elevated central venous pressure. Mild aortic valvular sclerosis without functional abnormality. Mild mitral annular calcification with very mild insufficiency. Normal appearing tricuspid valve with mild insufficiency. No apparent intracardiac mass or pericardial effusion. DVT prophylaxis ordered?: Lovenox 40mg SQ daily. ASSESSMENT AND PLAN: This is a 73-year-old female with hypercarbic respiratory failure. PROBLEMS: 1. Hypercarbic respiratory failure 2/2 COPD exacerbation Improved S/P PO Doxycycline Prednisone to 30mg PO daily S/P SoluMedrol IV and Ceftriaxone IV C/W BiPAP nightly and oxygen during the day; on 2L at home; currently on 6L; titrate oxygen C/W Proventil nebulizer scheduled and PRN, Symbicort S/P Duonebs, Formoterol, Budesonide C/W aspiration precautions C/W PT --> continued rehabilitation only after discharge C/W OT --> recommend rehabilitation or home with services 2. HFpEF with LVEF 60% C/W Furosemide 40mg PO BID Echocardiogram as noted above 3. Allergies with post-nasal drip C/W Fluticasone nasal spray C/W saline nasal spray 4. DM C/W SSI AC/HS, FSBS AC/HS, hypoglycemic protocol, consistent carbohydrate diet 5. Tobacco dependent C/W Nicotine replacement C/W smoking cessation counseling Continued tobacco use is complicating care and medical exacerbations 6. Depression C/W Escitalopram 7. HTN C/W Atenolol DISPOSITION: PT and OT recommendations. Potential discharge to [facility] for continued rehabilitation in 24-48 hours. I saw and evaluated the patient. I agree with the findings and plan of care as documented in the resident's note VS, I&O, 24H, Fishbone Vital Signs/I&O Vital Signs Date Time Temp Pulse Resp B/P (MAP) Pulse Ox O2 Delivery O2 Flow Rate FiO2 04/20/19 14:00 96.0 65 19 113/58 (76) 97 2.0 04/18/19 01:48 BIPAP/CPAP 04/15/19 08:12 35 I&O- Last 24 Hours up to 6 AM 04/20/19 06:00 Intake Total 2020 ml Output Total 150 ml Balance 1870 ml Laboratory Data 24H LABS Laboratory Tests 2 04/19/19 16:41: Bedside Glucose (Misc Panel) 168H 04/19/19 21:09: Bedside Glucose (Misc Panel) 146H 04/20/19 05:48: Bedside Glucose (Misc Panel) 129H 04/20/19 11:29: Bedside Glucose (Misc Panel) 233H Microbiology Microbiology 04/15/19 Gram Stain - Final, Complete 04/15/19 Sputum Culture - Final, Complete Yeast Like Organism 04/14/19 Respiratory Virus Panel (PCR) ([facility]) - Final, Complete Human Rhinovirus/Enterovirus OOSTHUIZEN,KATHY DO Apr 20, 2019 15:50 DONYA MARIE MD Apr 23, 2019 16:40
[2019-04-20 16:29] LABS: HEMATOCRIT 43.3 % (36.0-47.0); HEMOGLOBIN 13.7 g/dl (12.0-15.5); MEAN CORPUSCULAR HEMOGLOBIN 32.5 pg (27.0-33.0); MEAN CORPUSCULAR HGB CONC 31.6 g/dl (32.0-36.5); MEAN CORPUSCULAR VOLUME 102.6 fl (80.0-96.0); PLATELET COUNT, AUTOMATED 227 10^3/uL (150-450); RED BLOOD COUNT 4.22 10^6/uL (4.00-5.40); WHITE BLOOD COUNT 14.9 10^3/uL (4.0-10.0)
[2019-04-20 16:36] LABS: BLOOD UREA NITROGEN 25 MG/DL (7-18); CALCIUM LEVEL 8.2 MG/DL (8.8-10.2); CARBON DIOXIDE LEVEL 43 MEQ/L (21-32); CHLORIDE LEVEL 93 MEQ/L (98-107); CREATININE FOR GFR 0.94 MG/DL (0.55-1.30); GLOMERULAR FILTRATION RATE > 60.0 (>39); GLUCOSE, FASTING 193 MG/DL (70-100); POTASSIUM SERUM 3.7 MEQ/L (3.5-5.1); SODIUM LEVEL 140 MEQ/L (136-145)
[2019-04-20] MEDS: guaiFENesin ER 600 MG TAB PO SCH (21:19)
[2019-04-20 22:00] VITALS: BP 134/56
[2019-04-21] MEDS: ALBUTEROL SULFATE 2.5 MG/0.5 ML INH NEB SOLN NEB SCH ×4 (02:00→20:00)
[2019-04-21 06:00] VITALS: BP 147/65
[2019-04-21 06:20] LABS: HEMATOCRIT 40.2 % (36.0-47.0); HEMOGLOBIN 12.7 g/dl (12.0-15.5); MEAN CORPUSCULAR HEMOGLOBIN 32.3 pg (27.0-33.0); MEAN CORPUSCULAR HGB CONC 31.6 g/dl (32.0-36.5); MEAN CORPUSCULAR VOLUME 102.3 fl (80.0-96.0); PLATELET COUNT, AUTOMATED 203 10^3/uL (150-450); RED BLOOD COUNT 3.93 10^6/uL (4.00-5.40); WHITE BLOOD COUNT 13.4 10^3/uL (4.0-10.0)
[2019-04-21 06:44] LABS: BLOOD UREA NITROGEN 20 MG/DL (7-18); CALCIUM LEVEL 7.9 MG/DL (8.8-10.2); CARBON DIOXIDE LEVEL 45 MEQ/L (21-32); CHLORIDE LEVEL 94 MEQ/L (98-107); CREATININE FOR GFR 0.65 MG/DL (0.55-1.30); GLOMERULAR FILTRATION RATE > 60.0 (>39); GLUCOSE, FASTING 101 MG/DL (70-100); POTASSIUM SERUM 3.6 MEQ/L (3.5-5.1); SODIUM LEVEL 141 MEQ/L (136-145)
[2019-04-21] MEDS: SYMBICORT 160/4.5MCG INHALER 6GM INH SCH ×2 (07:39→20:02)
[2019-04-21] MEDS: TIOTROPIUM INHALER/CAPSULE (SPIRIVA) INH SCH (08:00)
[2019-04-21] MEDS: ATENOLOL 50 MG TAB PO SCH (08:09)
[2019-04-21] MEDS: predniSONE 20 MG TAB PO SCH (08:09)
[2019-04-21] MEDS: guaiFENesin ER 600 MG TAB PO SCH ×2 (08:10→21:07)
[2019-04-21] MEDS: NICOTINE 7 MG/24 HR TRANSDERMAL TD SCH (08:10)
[2019-04-21] MEDS: ESCITALOPRAM OXALATE 10 MG TAB (LEXAPRO) PO SCH (08:10)
[2019-04-21] MEDS: FUROSEMIDE 40 MG TAB PO SCH ×2 (08:10→17:13)
[2019-04-21] MEDS: HumaLOG INSULIN (NovoLOG) PER UNIT SC SCH ×4 (08:10→21:08)
[2019-04-21] MEDS: ENOXAPARIN 40 MG/0.4 ML SYRINGE (J1650) SC SCH (08:11)
[2019-04-21] MEDS: FLUTICASONE PROP 0.05% NASAL SPRAY 16 GM (FLONASE) NARES SCH (08:11)
--- NOTE | 2019-04-21 10:27 | IPNPDOC ---
Date Seen The patient was seen on 04/21/19. Progress Note SUBJECTIVE: Patient is a 73-year-old female with hypercarbic respiratory failure. Patient is evaluated at bedside this morning. She is laying in the recumbent position in hospital bed. She states that she feels better this morning stating that last evening was unpleasant and she required Mucinex. She does admit to shortness of breath first thing in the morning, but it improves throughout the day. Denies chest pain. She is currently on 2L saturating at 91%. Denies fevers, night sweats, chills. OBJECTIVE PHYSICAL EXAMINATION: VITAL SIGNS: Please see below. GENERAL: Obese female, alert and conversant, laying in bed in the recumbent position, no acute distress. HEENT: Atraumatic, normocephalic, PERRL, EOMI, wears spectacles. CARDIOVASCULAR: Regular rate and rhythm, normal S1 and S2, no murmur, rub, click. RESPIRATORY: Diminished breath sounds throughout, rhonchi, but no audible wheeze, crackles. ABDOMINAL: Round, soft, non-tender, non-distended. EXTREMITIES: +1-2 pitting edema noted, peripheral pulses equal and symmetrical, +2. NEUROLOGICAL: CN II-XII grossly intact. PSYCHOLOGICAL: Mood and affect appropriate. LABORATORY DATA, IMAGING STUDIES, MICROBIOLOGY: Please see below. Echocardiogram: Normal sinus rhythm without intraventricular conduction disturbance. M-mode two-dimensional echocardiography was performed with pulsed, continuous wave, color flow and tissue Doppler studies. Normal left ventricular size with wall thickness upper limits of normal. Localized proximal septal flattening suggestive of right ventricular pressure overload but otherwise normal left ventricular wall motion. Left atrial size upper limits of normal with Doppler evidence of an impairment of left ventricular (LV) diastolic function and current estimated mean left atrial pressure was at least mildly increased. Normal right heart chamber sizes and motion with mild right ventricular free wall hypertrophy and Doppler evidence of moderate pulmonary hypertension. Normal inferior vena cava (IVC) size and collapse against an elevated central venous pressure. Mild aortic valvular sclerosis without functional abnormality. Mild mitral annular calcification with very mild insufficiency. Normal appearing tricuspid valve with mild insufficiency. No apparent intracardiac mass or pericardial effusion. DVT prophylaxis ordered?: Lovenox 40mg SQ daily. ASSESSMENT AND PLAN: This is a 73-year-old female with hypercarbic respiratory failure. PROBLEMS: 1. Hypercarbic respiratory failure 2/2 COPD exacerbation Improved S/P PO Doxycycline Pulmonary consulted; added Tiotropium to regimen C/W Prednisone to 30mg PO daily S/P SoluMedrol IV and Ceftriaxone IV C/W BiPAP nightly and oxygen during the day; on 2L at home; currently on 2L and saturating at 91%; titrate oxygen C/W Proventil nebulizer scheduled and PRN, Symbicort S/P Duonebs, Formoterol, Budesonide C/W aspiration precautions C/W PT --> continued rehabilitation only after discharge C/W OT --> recommend rehabilitation or home with services Patient has been accepted to [facility] at [facility]; awaiting insurance approval; may potentially travel by private vehicle if oxygen saturations improve and remain stable 2. HFpEF with LVEF 60% C/W Furosemide 40mg PO BID Echocardiogram as noted above 3. Allergies with post-nasal drip C/W Fluticasone nasal spray C/W saline nasal spray Added Mucinex 4. DM C/W SSI AC/HS, FSBS AC/HS, hypoglycemic protocol, consistent carbohydrate diet 5. Tobacco dependent C/W Nicotine replacement C/W smoking cessation counseling Continued tobacco use is complicating care and medical exacerbations 6. Depression C/W Escitalopram 7. HTN C/W Atenolol DISPOSITION: Accepted for [facility] at [facility], pending insurance approval. I saw and evaluated the patient. I agree with the findings and plan of care as documented in the resident's note VS, I&O, 24H, Fishbone Vital Signs/I&O Vital Signs Date Time Temp Pulse Resp B/P (MAP) Pulse Ox O2 Delivery O2 Flow Rate FiO2 04/21/19 10:10 2.0 04/21/19 08:09 87 136/66 04/21/19 06:00 97.3 20 91 04/18/19 01:48 BIPAP/CPAP 04/15/19 08:12 35 I&O- Last 24 Hours up to 6 AM 04/21/19 06:00 Intake Total 960 ml Output Total 150 ml Balance 810 ml Laboratory Data 24H LABS Laboratory Tests 2 04/20/19 11:29: Bedside Glucose (Misc Panel) 233H 04/20/19 16:07: Nucleated Red Blood Cells % (auto) 0.0, Anion Gap 4L, Glomerular Filtration Rate > 60.0, Blood Urea Nitrogen 25H, Creatinine 0.94, Sodium Level 140, Potassium Level 3.7, Chloride Level 93L, Carbon Dioxide Level 43H, Calcium Level 8.2L 04/20/19 16:24: Bedside Glucose (Misc Panel) 219H 04/20/19 20:19: Bedside Glucose (Misc Panel) 320H 04/21/19 05:31: Nucleated Red Blood Cells % (auto) 0.0, Anion Gap 2L, Glomerular Filtration Rate > 60.0, Blood Urea Nitrogen 20H, Creatinine 0.65, Sodium Level 141, Potassium Level 3.6, Chloride Level 94L, Carbon Dioxide Level 45H, Calcium Level 7.9L CBC/BMP Laboratory Tests 04/20/19 16:07 Red Blood Count 4.22, Mean Corpuscular Volume 102.6 H, Mean Corpuscular Hemoglobin 32.5, Mean Corpuscular Hemoglobin Concent 31.6 L, Red Cell Distribution Width 14.0, Calcium Level 8.2 L 04/21/19 05:31 Red Blood Count 3.93 L, Mean Corpuscular Volume 102.3 H, Mean Corpuscular Hemoglobin 32.3, Mean Corpuscular Hemoglobin Concent 31.6 L, Red Cell Distribution Width 13.8, Calcium Level 7.9 L Microbiology Microbiology 04/15/19 Gram Stain - Final, Complete 04/15/19 Sputum Culture - Final, Complete Yeast Like Organism 04/14/19 Respiratory Virus Panel (PCR) ([facility]) - Final, Complete Human Rhinovirus/Enterovirus KATHY ALLAN DO Apr 21, 2019 10:27 DONYA MARIE MD Apr 23, 2019 16:45
--- NOTE | 2019-04-21 11:17 | IPN ---
DATE: 04/12/2019 NOTE: Ms. Ang continues to do well following her chronic obstructive pulmonary disease (COPD) exacerbation secondary to rhinovirus. She has tolerated decreasing her systemic corticosteroids to 30 mg daily. She is working with physical therapy and occupational therapy and awaiting placement in a intermediate for subacute rehabilitation. Apparently, she has been accepted in [place] and it is just a matter of insurance clearance. She continues to have slight cough that is productive of thick clear sputum. No hemoptysis. No wheezing. No chest pain or pressure. She had difficulties last night tolerating the bilevel device. She could not get the mask to sit on her face appropriately. Eventually, respiratory therapy was able to help her get it situated. She tells me that yesterday she got up at 05:00 a.m. and sat in the chair or walked until 09:00 p.m. No concerns expressed. PHYSICAL EXAMINATION: General: Ms. Ang was initially lying in bed and was able to pull herself to a sitting position. She can complete short sentences. Vital signs: Temperature 97.3 with a maximum temperature (t-max) of 97.6. Blood pressure 147/65 with a MAP of 92, heart rate 74, respiratory rate 20, SpO2 91% on 2 liters via nasal cannula. HEENT: Anicteric. Nares: Patent bilaterally. O2 tubing in place. Oropharynx clear. No lesions. Dry appearing mucosa. Neck: Supple, without thyromegaly or masses, trachea is midline. Chest: Increased AP diameter. Lungs: Symmetric excursion, markedly diminished air entry. No wheeze, rhonchi or crackle on tidal excursion. Prolonged expiratory phase. No accessory muscle usage or retractions. Cardiovascular: Regular rate and rhythm with a normal S1, S2. No murmur, rub or gallop appreciated. Abdomen: Positive bowel sounds, soft, nontender. LABORATORY DATA: Chemistry shows sodium 141, potassium 3.6, chloride 94, bicarbonate 45, BUN 20, creatinine 0.7, glucose 101, calcium 7.9, anion gap 2. CBC showed a hemoglobin 12.7, hematocrit 40.2, platelet count 203,000, white blood cell count 13,400. Yesterday's input and output were 960 in and 150 out making her positive 810, though I question the output as she does wear a Depends type device. Weight 81.2. IMPRESSION: 1. Chronic obstructive pulmonary disease (COPD) exacerbation secondary to rhinovirus, resolving. 2. Obstructive sleep apnea, on bilevel therapy. 3. Rhinovirus this admission. 4. Chronic hypercapnic and hypoxemic respiratory failure. RECOMMENDATIONS: 1. Would continue on her current outpatient, which should consist of an IC / LABA and LAMA medications. 2. In house, she has been on Symbicort 160 / 4.5 two puffs twice daily and we will start on Spiriva one puff daily. 3. If possible, on discharge, she would prefer to go back to Breo 200-25 one puff daily and Incruse one puff daily. 4. She should continue to use albuterol bronchodilator as a rescue medication, either by MDI or nebulization. 5. Continue to use the Acapella to help with expectoration. 6. We will continue to decrease prednisone to off. I would recommend continuing on 30 mg for another 3 days, then 20 mg for 5 days, 10 mg for 5 days of 5 mg for 5 days and then off. 7. I will arrange for a followup appointment with Dr. Verdin in about a month. Hopefully, she will be off or nearly off her prednisone at that time. 8. I have also asked the nurses to check with infectious disease as to when she can be off droplet precautions. She has COPD and has a chronic cough and will never be cough free so that cannot be a criteria used to clear her from the isolation.
[2019-04-21 14:00] VITALS: BP 119/55
[2019-04-21 22:00] VITALS: BP 100/62
[2019-04-22] MEDS: ALBUTEROL SULFATE 2.5 MG/0.5 ML INH NEB SOLN NEB SCH ×4 (01:56→19:47)
[2019-04-22 02:00] VITALS: BP 112/64
[2019-04-22 06:00] VITALS: BP 125/64
[2019-04-22 06:02] LABS: HEMATOCRIT 38.1 % (36.0-47.0); HEMOGLOBIN 11.7 g/dl (12.0-15.5); MEAN CORPUSCULAR HEMOGLOBIN 31.5 pg (27.0-33.0); MEAN CORPUSCULAR HGB CONC 30.7 g/dl (32.0-36.5); MEAN CORPUSCULAR VOLUME 102.7 fl (80.0-96.0); PLATELET COUNT, AUTOMATED 216 10^3/uL (150-450); RED BLOOD COUNT 3.71 10^6/uL (4.00-5.40); WHITE BLOOD COUNT 14.1 10^3/uL (4.0-10.0)
[2019-04-22 06:30] LABS: BLOOD UREA NITROGEN 22 MG/DL (7-18); CALCIUM LEVEL 8.5 MG/DL (8.8-10.2); CARBON DIOXIDE LEVEL 45 MEQ/L (21-32); CHLORIDE LEVEL 96 MEQ/L (98-107); CREATININE FOR GFR 0.74 MG/DL (0.55-1.30); GLOMERULAR FILTRATION RATE > 60.0 (>39); GLUCOSE, FASTING 119 MG/DL (70-100); POTASSIUM SERUM 3.4 MEQ/L (3.5-5.1); SODIUM LEVEL 144 MEQ/L (136-145)
[2019-04-22] MEDS: TIOTROPIUM INHALER/CAPSULE (SPIRIVA) INH SCH ×3 (07:24→08:00)
[2019-04-22] MEDS: SYMBICORT 160/4.5MCG INHALER 6GM INH SCH ×2 (07:24→19:48)
[2019-04-22] MEDS: HumaLOG INSULIN (NovoLOG) PER UNIT SC SCH ×4 (07:53→20:44)
[2019-04-22] MEDS: ATENOLOL 50 MG TAB PO SCH (07:53)
[2019-04-22] MEDS: predniSONE 20 MG TAB PO SCH (07:53)
[2019-04-22] MEDS: guaiFENesin ER 600 MG TAB PO SCH ×2 (07:54→20:44)
[2019-04-22] MEDS: FUROSEMIDE 40 MG TAB PO SCH ×2 (07:54→17:30)
[2019-04-22] MEDS: ESCITALOPRAM OXALATE 10 MG TAB (LEXAPRO) PO SCH (07:54)
[2019-04-22] MEDS: ENOXAPARIN 40 MG/0.4 ML SYRINGE (J1650) SC SCH (07:54)
[2019-04-22] MEDS: FLUTICASONE PROP 0.05% NASAL SPRAY 16 GM (FLONASE) NARES SCH (08:16)
[2019-04-22] MEDS: NICOTINE 7 MG/24 HR TRANSDERMAL TD SCH (08:53)
[2019-04-22] MEDS ORDERED: POTASSIUM CHLORIDE 10 MEQ SR TABLET PO ONE (09:00)
--- NOTE | 2019-04-22 10:06 | IPNPDOC ---
Date Seen The patient was seen on 04/22/19. Progress Note SUBJECTIVE: Patient is a 73-year-old female with hypercarbic respiratory failure. Patient is evaluated at bedside this morning. She is laying in bed in the recumbent position. Her [id number] is present. Patient states that she continues to cough up clear phlegm, but is otherwise not short of breath, having chest pain, having fevers, night sweats, or chills. OBJECTIVE PHYSICAL EXAMINATION: VITAL SIGNS: Please see below. GENERAL: Obese female, alert and conversant, laying in bed in the recumbent position, no acute distress. HEENT: Atraumatic, normocephalic, PERRL, EOMI, wears spectacles. CARDIOVASCULAR: Regular rate and rhythm, normal S1 and S2, no murmur, rub, click. RESPIRATORY: Diminished breath sounds throughout, rhonchi, but no audible wheeze, crackles. ABDOMINAL: Round, soft, non-tender, non-distended. EXTREMITIES: +1-2 pitting edema noted, peripheral pulses equal and symmetrical, +2. NEUROLOGICAL: CN II-XII grossly intact. PSYCHOLOGICAL: Mood and affect appropriate. LABORATORY DATA, IMAGING STUDIES, MICROBIOLOGY: Please see below. Echocardiogram: Normal sinus rhythm without intraventricular conduction disturbance. M-mode two-dimensional echocardiography was performed with pulsed, continuous wave, color flow and tissue Doppler studies. Normal left ventricular size with wall thickness upper limits of normal. Localized proximal septal flattening suggestive of right ventricular pressure overload but otherwise normal left ventricular wall motion. Left atrial size upper limits of normal with Doppler evidence of an impairment of left ventricular (LV) diastolic function and current estimated mean left atrial pressure was at least mildly increased. Normal right heart chamber sizes and motion with mild right ventricular free wall hypertrophy and Doppler evidence of moderate pulmonary hypertension. Normal inferior vena cava (IVC) size and collapse against an elevated central venous pressure. Mild aortic valvular sclerosis without functional abnormality. Mild mitral annular calcification with very mild insufficiency. Normal appearing tricuspid valve with mild insufficiency. No apparent intracardiac mass or pericardial effusion. DVT prophylaxis ordered?: Lovenox 40mg SQ daily. ASSESSMENT AND PLAN: This is a 73-year-old female with hypercarbic respiratory failure. PROBLEMS: 1. Hypercarbic respiratory failure 2/2 COPD exacerbation Improved S/P PO Doxycycline Pulmonary consulted; C/W IC/LABA/LAMA, FIDELINA, Acapella; steroid taper of Prednisone 30mg PO x3 days, 20mg PO x5 days, 10mg PO x5 days, 5mg PO x5 days; follow-up with [facility] [employer] [facility] [employer] in one month S/P SoluMedrol IV and Ceftriaxone IV C/W BiPAP nightly and oxygen during the day; BiPAP ordered for NH; [facility] with coordinate C/W Proventil nebulizer scheduled and PRN, Symbicort, Spiriva S/P Duonebs, Formoterol, Budesonide C/W aspiration precautions C/W PT --> continued rehabilitation only after discharge C/W OT --> recommend rehabilitation or home with services Patient has been accepted to [facility] at [facility]; awaiting insurance approval; EMS transport 2. HFpEF with LVEF 60% C/W Furosemide 40mg PO BID Echocardiogram as noted above 3. Allergies with post-nasal drip C/W Fluticasone nasal spray, saline nasal spray, Mucinex 4. DM C/W SSI AC/HS, FSBS AC/HS, hypoglycemic protocol, consistent carbohydrate diet 5. Tobacco dependent C/W Nicotine replacement C/W smoking cessation counseling Continued tobacco use is complicating care and medical exacerbations 6. Depression C/W Escitalopram 7. HTN C/W Atenolol DISPOSITION: Accepted for [facility] at [facility], pending insurance approval. I saw and evaluated the patient. I agree with the findings and plan of care as documented in the resident's note VS, I&O, 24H, Fishbone Vital Signs/I&O Vital Signs Date Time Temp Pulse Resp B/P (MAP) Pulse Ox O2 Delivery O2 Flow Rate FiO2 04/22/19 09:00 2.0 04/22/19 07:53 61 125/64 04/22/19 06:00 96.5 18 95 04/18/19 01:48 BIPAP/CPAP I&O- Last 24 Hours up to 6 AM 04/22/19 05:59 Intake Total 1690 ml Output Total 850 ml Balance 840 ml Laboratory Data 24H LABS Laboratory Tests 2 04/21/19 11:55: Bedside Glucose (Misc Panel) 225H 04/21/19 17:00: Bedside Glucose (Misc Panel) 181H 04/21/19 20:41: Bedside Glucose (Misc Panel) 294H 04/22/19 05:27: Nucleated Red Blood Cells % (auto) 0.0, Anion Gap 3L, Glomerular Filtration Rate > 60.0, Blood Urea Nitrogen 22H, Creatinine 0.74, Sodium Level 144, Potassium Level 3.4L, Chloride Level 96L, Carbon Dioxide Level 45H, Calcium Level 8.5L CBC/BMP Laboratory Tests 04/22/19 05:27 Red Blood Count 3.71 L, Mean Corpuscular Volume 102.7 H, Mean Corpuscular Hemoglobin 31.5, Mean Corpuscular Hemoglobin Concent 30.7 L, Red Cell Distribution Width 14.2, Calcium Level 8.5 L Microbiology Microbiology 04/15/19 Gram Stain - Final, Complete 04/15/19 Sputum Culture - Final, Complete Yeast Like Organism 04/14/19 Respiratory Virus Panel (PCR) ([facility]) - Final, Complete Human Rhinovirus/Enterovirus KATHY ALLAN DO Apr 22, 2019 10:06 DONYA MARIE MD Apr 23, 2019 16:46
[2019-04-22 14:00] VITALS: BP 104/53
[2019-04-22 22:00] VITALS: BP 117/59
[2019-04-23] MEDS: ALBUTEROL SULFATE 2.5 MG/0.5 ML INH NEB SOLN NEB SCH ×4 (02:29→20:00)
[2019-04-23 05:48] LABS: HEMATOCRIT 35.6 % (36.0-47.0); HEMOGLOBIN 11.2 g/dl (12.0-15.5); MEAN CORPUSCULAR HEMOGLOBIN 31.9 pg (27.0-33.0); MEAN CORPUSCULAR HGB CONC 31.5 g/dl (32.0-36.5); MEAN CORPUSCULAR VOLUME 101.4 fl (80.0-96.0); PLATELET COUNT, AUTOMATED 208 10^3/uL (150-450); RED BLOOD COUNT 3.51 10^6/uL (4.00-5.40); WHITE BLOOD COUNT 12.7 10^3/uL (4.0-10.0)
[2019-04-23 06:00] VITALS: BP 141/63
[2019-04-23 06:18] LABS: BLOOD UREA NITROGEN 17 MG/DL (7-18); CALCIUM LEVEL 7.7 MG/DL (8.8-10.2); CARBON DIOXIDE LEVEL 40 MEQ/L (21-32); CHLORIDE LEVEL 100 MEQ/L (98-107); CREATININE FOR GFR 0.52 MG/DL (0.55-1.30); GLOMERULAR FILTRATION RATE > 60.0 (>39); GLUCOSE, FASTING 123 MG/DL (70-100); POTASSIUM SERUM 3.6 MEQ/L (3.5-5.1); SODIUM LEVEL 139 MEQ/L (136-145)
[2019-04-23] MEDS: TIOTROPIUM INHALER/CAPSULE (SPIRIVA) INH SCH (07:28)
[2019-04-23] MEDS: SYMBICORT 160/4.5MCG INHALER 6GM INH SCH ×2 (07:29→20:28)
[2019-04-23] MEDS: ENOXAPARIN 40 MG/0.4 ML SYRINGE (J1650) SC SCH (08:12)
[2019-04-23] MEDS: predniSONE 20 MG TAB PO SCH (08:13)
[2019-04-23] MEDS: ATENOLOL 50 MG TAB PO SCH (08:13)
[2019-04-23] MEDS: ESCITALOPRAM OXALATE 10 MG TAB (LEXAPRO) PO SCH (08:13)
[2019-04-23] MEDS: NICOTINE 7 MG/24 HR TRANSDERMAL TD SCH (08:13)
[2019-04-23] MEDS: guaiFENesin ER 600 MG TAB PO SCH ×2 (08:13→20:47)
[2019-04-23] MEDS: FLUTICASONE PROP 0.05% NASAL SPRAY 16 GM (FLONASE) NARES SCH (08:14)
[2019-04-23] MEDS: FUROSEMIDE 40 MG TAB PO SCH ×2 (08:14→16:56)
[2019-04-23] MEDS: HumaLOG INSULIN (NovoLOG) PER UNIT SC SCH ×4 (08:16→20:35)
[2019-04-23] MEDS ORDERED: OLOPATADINE 0.1% OPHTH SOL 5ML(PATANOL) OU PRN (09:00)
--- NOTE | 2019-04-23 09:26 | IPNPDOC ---
Date Seen The patient was seen on 04/23/19. Progress Note SUBJECTIVE: Patient is a 73-year-old female with hypercarbic respiratory failure. Patient is evaluated at bedside this morning. She is sitting up in a chair at bedside. She continues to report a chronic cough and shortness of breath when she first wakes up. She states that she slept well overnight. NO fevers, night sweats, chills, chest pain. She would like an eye drop stating that the oxygen causes her eyes to be dry and irritated. OBJECTIVE PHYSICAL EXAMINATION: VITAL SIGNS: Please see below. GENERAL: Obese female, alert and conversant, sitting up in a chair at bedside, no acute distress. HEENT: Atraumatic, normocephalic, PERRL, EOMI, some tearing noted around the eyes, wears spectacles, nasal cannula in place. CARDIOVASCULAR: Regular rate and rhythm, normal S1 and S2, no murmur, rub, click. RESPIRATORY: Diminished breath sounds throughout, rhonchi, but no audible wheeze, crackles. ABDOMINAL: Round, soft, non-tender, non-distended. EXTREMITIES: +1-2 pitting edema noted, peripheral pulses equal and symmetrical, +2. NEUROLOGICAL: CN II-XII grossly intact. PSYCHOLOGICAL: Mood and affect appropriate. LABORATORY DATA, IMAGING STUDIES, MICROBIOLOGY: Please see below. Echocardiogram: Normal sinus rhythm without intraventricular conduction disturbance. M-mode two-dimensional echocardiography was performed with pulsed, continuous wave, color flow and tissue Doppler studies. Normal left ventricular size with wall thickness upper limits of normal. L ocalized proximal septal flattening suggestive of right ventricular pressure overload but otherwise normal left ventricular wall motion. Left atrial size upper limits of normal with Doppler evidence of an impairment of left ventricular (LV) diastolic function and current estimated mean left atrial pressure was at least mildly increased. Normal right heart chamber sizes and motion with mild right ventricular free wall hypertrophy and Doppler evidence of moderate pulmonary hypertension. Normal inferior vena cava (IVC) size and collapse against an elevated central venous pressure. Mild aortic valvular sclerosis without functional abnormality. Mild mitral annular calcification with very mild insufficiency. Normal appearing tricuspid valve with mild insufficiency. No apparent intracardiac mass or pericardial effusion. DVT prophylaxis ordered?: Lovenox 40mg SQ daily. ASSESSMENT AND PLAN: This is a 73-year-old female with hypercarbic respiratory failure. PROBLEMS: 1. Hypercarbic respiratory failure 2/2 COPD exacerbation Improved S/P PO Doxycycline Pulmonary consulted; C/W IC/LABA/LAMA, FIDELINA, Acapella; steroid taper of Prednisone 30mg PO x2 days, 20mg PO x5 days, 10mg PO x5 days, 5mg PO x5 days; follow-up with air traffic controller in one month S/P SoluMedrol IV and Ceftriaxone IV C/W BiPAP nightly and oxygen during the day; BiPAP ordered for NH; [facility] with coordinate C/W Proventil nebulizer scheduled and PRN, Symbicort, Spiriva S/P Duonebs, Formoterol, Budesonide C/W aspiration precautions C/W PT --> continued rehabilitation only after discharge C/W OT --> recommend rehabilitation or home with services Patient has been accepted to STR at [place]; awaiting insurance approval; EMS transport 2. HFpEF with LVEF 60% C/W Furosemide 40mg PO BID Echocardiogram as noted above 3. Allergies with post-nasal drip C/W Fluticasone nasal spray, saline nasal spray, Mucinex Started Patanol eye drops 4. DM C/W SSI AC/HS, FSBS AC/HS, hypoglycemic protocol, consistent carbohydrate diet 5. Tobacco dependent C/W Nicotine replacement C/W smoking cessation counseling Continued tobacco use is complicating care and medical exacerbations 6. Depression C/W Escitalopram 7. HTN C/W Atenolol DISPOSITION: Accepted for STR at [place], pending insurance approval. I saw and evaluated the patient. I agree with the findings and plan of care as documented in the resident's note VS, I&O, 24H, [place] Vital Signs/I&O Vital Signs Date Time Temp Pulse Resp B/P (MAP) Pulse Ox O2 Delivery O2 Flow Rate FiO2 04/23/19 08:13 72 136/66 04/23/19 06:00 97.4 20 94 04/22/19 20:30 2.0 04/18/19 01:48 BIPAP/CPAP I&O- Last 24 Hours up to 6 AM 04/23/19 06:00 Intake Total 1560 ml Output Total 250 ml Balance 1310 ml Laboratory Data 24H LABS Laboratory Tests 2 04/22/19 11:19: Bedside Glucose (Misc Panel) 333H 04/22/19 16:44: Bedside Glucose (Misc Panel) 201H 04/22/19 20:10: Bedside Glucose (Misc Panel) 265H 04/23/19 05:37: Nucleated Red Blood Cells % (auto) 0.0, Anion Gap -1L, Glomerular Filtration Rate > 60.0, Blood Urea Nitrogen 17, Creatinine 0.52L, Sodium Level 139, Potassium Level 3.6, Chloride Level 100, Carbon Dioxide Level 40H, Calcium Level 7.7L CBC/BMP Laboratory Tests 04/23/19 05:37 Red Blood Count 3.51 L, Mean Corpuscular Volume 101.4 H, Mean Corpuscular Hemoglobin 31.9, Mean Corpuscular Hemoglobin Concent 31.5 L, Red Cell Distribution Width 14.2, Calcium Level 7.7 L Microbiology Microbiology 04/15/19 Gram Stain - Final, Complete 04/15/19 Sputum Culture - Final, Complete Yeast Like Organism 04/14/19 Respiratory Virus Panel (PCR) ([facility]) - Final, Complete Human Rhinovirus/Enterovirus KATHY ALLAN DO Apr 23, 2019 09:26 DONYA MARIE MD Apr 23, 2019 16:50
[2019-04-23] MEDS: ACETAMINOPHEN TAB 650MG DOSE (2X325MG) PO PRN (13:48)
[2019-04-23 14:00] VITALS: BP 99/51
[2019-04-23 15:00] VITALS: BP 110/62
[2019-04-23 22:00] VITALS: BP 127/61
[2019-04-24] MEDS: ALBUTEROL SULFATE 2.5 MG/0.5 ML INH NEB SOLN NEB SCH ×4 (02:54→19:37)
[2019-04-24 06:00] VITALS: BP 147/78
[2019-04-24 06:17] LABS: HEMATOCRIT 36.2 % (36.0-47.0); HEMOGLOBIN 11.2 g/dl (12.0-15.5); MEAN CORPUSCULAR HEMOGLOBIN 31.6 pg (27.0-33.0); MEAN CORPUSCULAR HGB CONC 30.9 g/dl (32.0-36.5); MEAN CORPUSCULAR VOLUME 102.3 fl (80.0-96.0); PLATELET COUNT, AUTOMATED 233 10^3/uL (150-450); RED BLOOD COUNT 3.54 10^6/uL (4.00-5.40); WHITE BLOOD COUNT 11.7 10^3/uL (4.0-10.0)
[2019-04-24 06:32] LABS: BLOOD UREA NITROGEN 13 MG/DL (7-18); CALCIUM LEVEL 8.2 MG/DL (8.8-10.2); CARBON DIOXIDE LEVEL 41 MEQ/L (21-32); CHLORIDE LEVEL 98 MEQ/L (98-107); CREATININE FOR GFR 0.75 MG/DL (0.55-1.30); GLOMERULAR FILTRATION RATE > 60.0 (>39); GLUCOSE, FASTING 118 MG/DL (70-100); POTASSIUM SERUM 3.7 MEQ/L (3.5-5.1); SODIUM LEVEL 140 MEQ/L (136-145)
[2019-04-24] MEDS: HumaLOG INSULIN (NovoLOG) PER UNIT SC SCH ×4 (07:56→21:00)
[2019-04-24] MEDS: predniSONE 20 MG TAB PO SCH (08:01)
[2019-04-24] MEDS: ESCITALOPRAM OXALATE 10 MG TAB (LEXAPRO) PO SCH (08:01)
[2019-04-24] MEDS: guaiFENesin ER 600 MG TAB PO SCH ×2 (08:01→20:07)
[2019-04-24] MEDS: ATENOLOL 50 MG TAB PO SCH (08:01)
[2019-04-24] MEDS: FUROSEMIDE 40 MG TAB PO SCH ×2 (08:01→17:11)
[2019-04-24] MEDS: ENOXAPARIN 40 MG/0.4 ML SYRINGE (J1650) SC SCH (08:02)
[2019-04-24] MEDS: NICOTINE 7 MG/24 HR TRANSDERMAL TD SCH (08:02)
[2019-04-24] MEDS: TIOTROPIUM INHALER/CAPSULE (SPIRIVA) INH SCH (08:05)
[2019-04-24] MEDS: SYMBICORT 160/4.5MCG INHALER 6GM INH SCH ×2 (08:06→19:37)
[2019-04-24] MEDS: FLUTICASONE PROP 0.05% NASAL SPRAY 16 GM (FLONASE) NARES SCH (08:15)
[2019-04-24] MEDS: ACETAMINOPHEN TAB 650MG DOSE (2X325MG) PO PRN (10:35)
[2019-04-24 14:00] VITALS: BP 124/58
--- NOTE | 2019-04-24 16:19 | IPNPDOC ---
Date Seen The patient was seen on 04/24/19. Progress Note SUBJECTIVE: Patient reports feeling well she has irregular shortness of breath but otherwise denies any changes or complaints today. OBJECTIVE PHYSICAL EXAMINATION: VITAL SIGNS: Please see below. GENERAL: Obese female, alert and conversant, sitting up in a chair, no acute distress. HEENT: Atraumatic, normocephalic, PERRL, EOMI, nasal cannula in place. CARDIOVASCULAR: Regular rate and rhythm, normal S1 and S2, no murmur, rub, click. RESPIRATORY: Diminished breath sounds throughout, rhonchi, but no audible wheeze, prolonged expiratory phase ABDOMINAL: Round, soft, non-tender, non-distended. Obese EXTREMITIES: No edema noted, peripheral pulses equal and symmetrical, +2. NEUROLOGICAL: CN II-XII grossly intact. PSYCHOLOGICAL: Mood and affect appropriate. LABORATORY DATA, IMAGING STUDIES, MICROBIOLOGY: Please see below. Echocardiogram: Normal sinus rhythm without intraventricular conduction disturbance. M-mode two-dimensional echocardiography was performed with pulsed, continuous wave, color flow and tissue Doppler studies. Normal left ventricular size with wall thickness upper limits of normal. Localized proximal septal flattening suggestive of right ventricular pressure overload but otherwise normal left ventricular wall motion. Left atrial size upper limits of normal with Doppler evidence of an impairment of left ventricular (LV) diastolic function and current estimated mean left atrial pressure was at least mildly increased. Normal right heart chamber sizes and motion with mild right ventricular free wall hypertrophy and Doppler evidence of moderate pulmonary hypertension. Normal inferior vena cava (IVC) size and collapse against an elevated central venous pressure. Mild aortic valvular sclerosis without functional abnormality. Mild mitral annular calcification with very mild insufficiency. Normal appearing tricuspid valve with mild insufficiency. No apparent intracardiac mass or pericardial effusion. DVT prophylaxis ordered?: Lovenox 40mg SQ daily. ASSESSMENT AND PLAN: This is a 73-year-old female with hypercarbic respiratory failure. PROBLEMS: 1. Hypercarbic respiratory failure 2/2 COPD exacerbation Improved, patient is back to her baseline currently awaiting rehabilitation placement S/P PO Doxycycline Pulmonary consulted; C/W IC/LABA/LAMA, FIDELINA, Acapella; steroid taper of Prednisone 30mg PO x2 days, 20mg PO x5 days, 10mg PO x5 days, 5mg PO x5 days; follow-up with pest control worker in one month S/P SoluMedrol IV and Ceftriaxone IV C/W BiPAP nightly and oxygen during the day; BiPAP ordered for NH; [facility] coordinate C/W Proventil nebulizer scheduled and PRN, Symbicort, Spiriva S/P Duonebs, Formoterol, Budesonide C/W aspiration precautions C/W PT --> continued rehabilitation only after discharge C/W OT --> recommend rehabilitation or home with services Patient has been accepted to STR at [place]; awaiting insurance approval; EMS transport 2. HFpEF with LVEF 60% C/W Furosemide 40mg PO BID Echocardiogram as noted above appears euvolemic today 3. Allergies with post-nasal drip C/W Fluticasone nasal spray, saline nasal spray, Mucinex Started Patanol eye drops 4. DM C/W SSI AC/HS, FSBS AC/HS, hypoglycemic protocol, consistent carbohydrate diet, fingersticks are adequately controlled considering she is on steroids which are being tapered I suspect control will improve 5. Tobacco dependent C/W Nicotine replacement C/W smoking cessation counseling Continued tobacco use is complicating care and medical exacerbations 6. Depression C/W Escitalopram 7. HTN C/W Atenolol DISPOSITION: Pending placement VS, I&O, 24H, [place] Vital Signs/I&O Vital Signs Date Time Temp Pulse Resp B/P (MAP) Pulse Ox O2 Delivery O2 Flow Rate FiO2 04/24/19 14:00 97.9 68 16 124/58 (80) 92 04/24/19 09:10 2.0 04/18/19 01:48 BIPAP/CPAP I&O- Last 24 Hours up to 6 AM 04/24/19 06:00 Intake Total 1010 ml Output Total 720 ml Balance 290 ml Laboratory Data 24H LABS Laboratory Tests 2 04/23/19 16:39: Bedside Glucose (Misc Panel) 245H 04/23/19 20:18: Bedside Glucose (Misc Panel) 239H 04/24/19 05:40: Nucleated Red Blood Cells % (auto) 0.0, Anion Gap 1L, Glomerular Filtration Rate > 60.0, Blood Urea Nitrogen 13, Creatinine 0.75, Sodium Level 140, Potassium Level 3.7, Chloride Level 98, Carbon Dioxide Level 41H, Calcium Level 8.2L 04/24/19 11:40: Bedside Glucose (Misc Panel) 273H CBC/BMP Laboratory Tests 04/24/19 05:40 Red Blood Count 3.54 L, Mean Corpuscular Volume 102.3 H, Mean Corpuscular Hemoglobin 31.6, Mean Corpuscular Hemoglobin Concent 30.9 L, Red Cell Distribution Width 14.2, Calcium Level 8.2 L Microbiology Microbiology 04/15/19 Gram Stain - Final, Complete 04/15/19 Sputum Culture - Final, Complete Yeast Like Organism 04/14/19 Respiratory Virus Panel (PCR) ([facility]) - Final, Complete Human Rhinovirus/Enterovirus DONYA MARIE MD Apr 24, 2019 16:19
[2019-04-24 22:00] VITALS: BP 110/58
[2019-04-25 06:00] VITALS: BP 138/72
[2019-04-25 06:04] LABS: HEMATOCRIT 34.4 % (36.0-47.0); HEMOGLOBIN 10.7 g/dl (12.0-15.5); MEAN CORPUSCULAR HEMOGLOBIN 30.8 pg (27.0-33.0); MEAN CORPUSCULAR HGB CONC 31.1 g/dl (32.0-36.5); MEAN CORPUSCULAR VOLUME 99.1 fl (80.0-96.0); PLATELET COUNT, AUTOMATED 259 10^3/uL (150-450); RED BLOOD COUNT 3.47 10^6/uL (4.00-5.40); WHITE BLOOD COUNT 12.1 10^3/uL (4.0-10.0)
[2019-04-25 06:34] LABS: BLOOD UREA NITROGEN 15 MG/DL (7-18); CALCIUM LEVEL 8.2 MG/DL (8.8-10.2); CARBON DIOXIDE LEVEL 42 MEQ/L (21-32); CHLORIDE LEVEL 98 MEQ/L (98-107); GLOMERULAR FILTRATION RATE > 60.0 (>39); GLUCOSE, FASTING 137 MG/DL (70-100); POTASSIUM SERUM 4.2 MEQ/L (3.5-5.1); SODIUM LEVEL 140 MEQ/L (136-145)
[2019-04-25] MEDS: ALBUTEROL SULFATE 2.5 MG/0.5 ML INH NEB SOLN NEB SCH ×4 (08:00→20:00)
[2019-04-25] MEDS: ENOXAPARIN 40 MG/0.4 ML SYRINGE (J1650) SC SCH (08:26)
[2019-04-25] MEDS: NICOTINE 7 MG/24 HR TRANSDERMAL TD SCH (08:26)
[2019-04-25] MEDS: HumaLOG INSULIN (NovoLOG) PER UNIT SC SCH ×4 (08:27→21:00)
[2019-04-25] MEDS: FLUTICASONE PROP 0.05% NASAL SPRAY 16 GM (FLONASE) NARES SCH (08:30)
[2019-04-25] MEDS: FUROSEMIDE 40 MG TAB PO SCH ×2 (08:30→17:51)
[2019-04-25] MEDS: ATENOLOL 50 MG TAB PO SCH (08:30)
[2019-04-25] MEDS: ESCITALOPRAM OXALATE 10 MG TAB (LEXAPRO) PO SCH (08:30)
[2019-04-25] MEDS: predniSONE 20 MG TAB PO SCH (08:30)
[2019-04-25] MEDS: guaiFENesin ER 600 MG TAB PO SCH ×2 (08:30→21:17)
[2019-04-25] MEDS: SYMBICORT 160/4.5MCG INHALER 6GM INH SCH ×2 (08:37→20:11)
[2019-04-25] MEDS: TIOTROPIUM INHALER/CAPSULE (SPIRIVA) INH SCH (08:37)
[2019-04-25 14:00] VITALS: BP 130/64
--- NOTE | 2019-04-25 16:56 | IPNPDOC ---
Date Seen The patient was seen on 04/25/19. Progress Note SUBJECTIVE: Patient is a 73-year-old female with hypercarbic respiratory failure. Patient is evaluated at bedside this morning. She is laying in bed in the recumbent position. She continues to have a chronic cough productive of minimal sputum. She denies chest pain, fever, night sweats, chills. Continues to wait for insurance approval in order for discharge to [facility] for continued rehabilitation. OBJECTIVE PHYSICAL EXAMINATION: VITAL SIGNS: Please see below. GENERAL: Obese female, alert and conversant, laying in bed in the recumbent position, no acute distress. HEENT: Atraumatic, normocephalic, PERRL, EOMI, wears spectacles, nasal cannula in place. CARDIOVASCULAR: Regular rate and rhythm, normal S1 and S2, no murmur, rub, click. RESPIRATORY: Diminished breath sounds throughout, but improved airway movement, rhonchi, but no audible wheeze, crackles. ABDOMINAL: Round, soft, non-tender, non-distended. EXTREMITIES: +1-2 pitting edema noted, peripheral pulses equal and symmetrical, +2. NEUROLOGICAL: CN II-XII grossly intact. PSYCHOLOGICAL: Mood and affect appropriate. LABORATORY DATA, IMAGING STUDIES, MICROBIOLOGY: Please see below. Echocardiogram: Normal sinus rhythm without intraventricular conduction disturbance. M-mode two-dimensional echocardiography was performed with pulsed, continuous wave, color flow and tissue Doppler studies. Normal left ventricular size with wall thickness upper limits of normal. Localized proximal septal flattening suggestive of right ventricular pressure overload but otherwise normal left ventricular wall motion. Left atrial size upper limits of normal with Doppler evidence of an impairment of left ventricular (LV) diastolic function and current estimated mean left atrial pressure was at least mildly increased. Normal right heart chamber sizes and motion with mild right ventricular free wal l hypertrophy and Doppler evidence of moderate pulmonary hypertension. Normal inferior vena cava (IVC) size and collapse against an elevated central venous pressure. Mild aortic valvular sclerosis without functional abnormality. Mild mitral annular calcification with very mild insufficiency. Normal appearing tricuspid valve with mild insufficiency. No apparent intracardiac mass or pericardial effusion. DVT prophylaxis ordered?: Lovenox 40mg SQ daily. ASSESSMENT AND PLAN: This is a 73-year-old female with hypercarbic respiratory failure. PROBLEMS: 1. Hypercarbic respiratory failure 2/2 COPD exacerbation 2/2 human rhinovirus/enterovirus Improved S/P PO Doxycycline Pulmonary consulted; C/W IC/LABA/LAMA, FIDELINA, Acapella; steroid taper of Prednisone 20mg PO x5 days, 10mg PO x5 days, 5mg PO x5 days; follow-up with salesperson driver in one month S/P SoluMedrol IV and Ceftriaxone IV C/W BiPAP nightly and oxygen during the day, stable on 2L via nasal cannula; BiPAP ordered for NH; [facility] with coordinate C/W Proventil nebulizer scheduled and PRN, Symbicort, Spiriva S/P Duonebs, Formoterol, Budesonide C/W aspiration precautions C/W PT --> continued rehabilitation only after discharge C/W OT --> recommend rehabilitation or home with services Patient has been accepted to STR at [place]; awaiting insurance approval; EMS transport 2. HFpEF with LVEF 60% C/W Furosemide 40mg PO BID Echocardiogram as noted above 3. Allergies with post-nasal drip C/W Fluticasone nasal spray, saline nasal spray, Mucinex, Patanol eye drops 4. DM C/W SSI AC/HS, FSBS AC/HS, hypoglycemic protocol, consistent carbohydrate diet 5. Tobacco dependent C/W Nicotine replacement C/W smoking cessation counseling Continued tobacco use is complicating care and medical exacerbations 6. Depression C/W Escitalopram 7. HTN C/W Atenolol DISPOSITION: Accepted for STR at [place], pending insurance approval. VS, I&O, 24H, Fishbone Vital Signs/I&O Vital Signs Date Time Temp Pulse Resp B/P (MAP) Pulse Ox O2 Delivery O2 Flow Rate FiO2 04/25/19 14:40 2.0 04/25/19 14:00 98.0 71 18 130/64 (86) 98 I&O- Last 24 Hours up to 6 AM 04/25/19 06:00 Intake Total 2175 ml Output Total 450 ml Balance 1725 ml Laboratory Data 24H LABS Laboratory Tests 2 04/24/19 21:07: Bedside Glucose (Misc Panel) 217H 04/25/19 05:28: Nucleated Red Blood Cells % (auto) 0.0, Anion Gap 0L, Glomerular Filtration Rate > 60.0, Blood Urea Nitrogen 15, Creatinine 0.70, Sodium Level 140, Potassium Level 4.2, Chloride Level 98, Carbon Dioxide Level 42H, Calcium Level 8.2L 04/25/19 11:34: Bedside Glucose (Misc Panel) 277H 04/25/19 16:48: Bedside Glucose (Misc Panel) 241H CBC/BMP Laboratory Tests 04/25/19 05:28 Red Blood Count 3.47 L, Mean Corpuscular Volume 99.1 H, Mean Corpuscular Hemoglobin 30.8, Mean Corpuscular Hemoglobin Concent 31.1 L, Red Cell Distribution Width 14.5, Calcium Level 8.2 L Microbiology Microbiology 04/15/19 Gram Stain - Final, Complete 04/15/19 Sputum Culture - Final, Complete Yeast Like Organism KATHY ALLAN DO Apr 25, 2019 16:56
[2019-04-25 22:00] VITALS: BP 111/54
[2019-04-26] MEDS: ALBUTEROL SULFATE 2.5 MG/0.5 ML INH NEB SOLN NEB SCH ×5 (01:40→20:00)
[2019-04-26 06:00] VITALS: BP 145/68
[2019-04-26 06:18] LABS: HEMATOCRIT 34.5 % (36.0-47.0); MEAN CORPUSCULAR HEMOGLOBIN 31.5 pg (27.0-33.0); MEAN CORPUSCULAR HGB CONC 31.9 g/dl (32.0-36.5); MEAN CORPUSCULAR VOLUME 98.9 fl (80.0-96.0); PLATELET COUNT, AUTOMATED 264 10^3/uL (150-450); RED BLOOD COUNT 3.49 10^6/uL (4.00-5.40); WHITE BLOOD COUNT 12.3 10^3/uL (4.0-10.0)
[2019-04-26 06:38] LABS: BLOOD UREA NITROGEN 16 MG/DL (7-18); CALCIUM LEVEL 8.3 MG/DL (8.8-10.2); CARBON DIOXIDE LEVEL 39 MEQ/L (21-32); CHLORIDE LEVEL 99 MEQ/L (98-107); CREATININE FOR GFR 0.71 MG/DL (0.55-1.30); GLOMERULAR FILTRATION RATE > 60.0 (>39); GLUCOSE, FASTING 123 MG/DL (70-100); POTASSIUM SERUM 3.9 MEQ/L (3.5-5.1); SODIUM LEVEL 141 MEQ/L (136-145)
[2019-04-26] MEDS: TIOTROPIUM INHALER/CAPSULE (SPIRIVA) INH SCH (08:28)
[2019-04-26] MEDS: SYMBICORT 160/4.5MCG INHALER 6GM INH SCH ×2 (08:28→20:59)
[2019-04-26] MEDS: predniSONE 20 MG TAB PO SCH (08:31)
[2019-04-26] MEDS: guaiFENesin ER 600 MG TAB PO SCH ×2 (08:31→21:00)
[2019-04-26] MEDS: ESCITALOPRAM OXALATE 10 MG TAB (LEXAPRO) PO SCH (08:31)
[2019-04-26] MEDS: FUROSEMIDE 40 MG TAB PO SCH ×2 (08:31→17:26)
[2019-04-26] MEDS: HumaLOG INSULIN (NovoLOG) PER UNIT SC SCH ×4 (08:32→21:00)
[2019-04-26] MEDS: ENOXAPARIN 40 MG/0.4 ML SYRINGE (J1650) SC SCH (08:32)
[2019-04-26] MEDS: SODIUM CHLORIDE NASAL 0.65% SPRAY BTL (OCEAN) PRN (08:33)
[2019-04-26] MEDS: ATENOLOL 50 MG TAB PO SCH (08:33)
[2019-04-26] MEDS: NICOTINE 7 MG/24 HR TRANSDERMAL TD SCH (08:34)
[2019-04-26] MEDS: FLUTICASONE PROP 0.05% NASAL SPRAY 16 GM (FLONASE) NARES SCH (08:34)
[2019-04-26] MEDS ORDERED: TIOT18INH INH (10:42)
[2019-04-26] MEDS ORDERED: OLOP0.1D OU (10:42)
[2019-04-26] MEDS ORDERED: SYMB16INH INH (10:42)
[2019-04-26] MEDS ORDERED: NYST50SS SS (10:42)
[2019-04-26] MEDS ORDERED: LOVE1INJ SC (10:42)
[2019-04-26] MEDS ORDERED: Sodium Chloride Nasal Spray (10:42)
[2019-04-26] MEDS ORDERED: ESCI10TA2 PO (10:42)
[2019-04-26] MEDS ORDERED: PRED10TA2 PO (10:42)
[2019-04-26] MEDS ORDERED: FURO40TA2 PO (10:42)
[2019-04-26] MEDS ORDERED: PRED20TA PO (10:42)
[2019-04-26] MEDS ORDERED: FLUTISP NARES (10:42)
[2019-04-26] MEDS ORDERED: NICO7PA TD (10:42)
[2019-04-26] MEDS ORDERED: ATEN50TA2 PO (10:42)
[2019-04-26] MEDS ORDERED: ALB2.5NEB NEB ×2 (10:42)
[2019-04-26] MEDS ORDERED: MUCI600T31 PO (10:42)
[2019-04-26] MEDS ORDERED: ACET1TAB55 PO (10:42)
[2019-04-26] MEDS ORDERED: PRED5TA PO (10:42)
--- NOTE | 2019-04-26 10:48 | IPNPDOC ---
Date Seen The patient was seen on 04/26/19. Progress Note SUBJECTIVE: Patient is a 73-year-old female with hypercarbic respiratory failure. Patient is evaluated at bedside this morning. She is sitting up in a chair at bedside reading a book. Her chronic symptoms of shortness of breath upon wakening and cough are stable. No fevers, night s weats, chills, chest pain. Patient's insurance has approved her rehabilitation at [place] with transport being arranged for tomorrow. OBJECTIVE PHYSICAL EXAMINATION: VITAL SIGNS: Please see below. GENERAL: Obese female, alert and conversant, sitting up in a chair at bedside reading a book, no acute distress. HEENT: Atraumatic, normocephalic, PERRL, EOMI, wears spectacles, nasal cannula in place. CARDIOVASCULAR: Regular rate and rhythm, normal S1 and S2, no murmur, rub, click. RESPIRATORY: Diminished breath sounds throughout, but improved airway movement, rhonchi, but no audible wheeze, crackles. ABDOMINAL: Round, soft, non-tender, non-distended. EXTREMITIES: +1-2 pitting edema noted, peripheral pulses equal and symmetrical, +2. NEUROLOGICAL: CN II-XII grossly intact. PSYCHOLOGICAL: Mood and affect appropriate. LABORATORY DATA, IMAGING STUDIES, MICROBIOLOGY: Please see below. 1. Portable chest x-ray - Chronic changes. NO focal consolidation. Echocardiogram: Normal sinus rhythm without intraventricular conduction disturbance. M-mode two-dimensional echocardiography was performed with pulsed, continuous wave, color flow and tissue Doppler studies. Normal left ventricular size with wall thickness upper limits of normal. Localized proximal septal flattening suggestive of right ventricular pressure overload but otherwise normal left ventricular wall motion. Left atrial size upper limits of normal with Doppler evidence of an impairment of left ventricular (LV) diastolic function and current estimated mean left atrial pressure was at least mildly increased. Normal right heart chamber sizes and motion with mild right ventricular free wall hypertrophy and Doppler evidence of moderate pulmonary hypertension. Normal inferior vena cava (IVC) size and collapse against an elevated central venous pressure. Mild aortic valvular sclerosis without functional abnormality. Mild mitral annular calcification with very mild insufficiency. Normal appearing tricuspid valve with mild insufficiency. No apparent intracardiac mass or pericardial effusion. DVT prophylaxis ordered?: Lovenox 40mg SQ daily. ASSESSMENT AND PLAN: This is a 73-year-old female with hypercarbic respiratory failure. PROBLEMS: 1. Hypercarbic respiratory failure 2/2 COPD exacerbation 2/2 human rhinovirus/enterovirus Improved S/P PO Doxycycline Pulmonary consulted; C/W IC/LABA/LAMA, FIDELINA, Acapella; steroid taper of Prednisone 20mg PO x4 days, 10mg PO x5 days, 5mg PO x5 days; follow-up with business banking relationship manager in one month S/P SoluMedrol IV and Ceftriaxone IV C/W BiPAP nightly and oxygen during the day, stable on 2L via nasal cannula; BiPAP ordered for NH; [facility] with coordinate C/W Proventil nebulizer scheduled and PRN, Symbicort, Spiriva; pulmonology recommends patient to continue home Breo at time of discharge and discontinued Symbicort, if possible S/P Duonebs, Formoterol, Budesonide C/W aspiration precautions C/W PT --> continued rehabilitation only after discharge C/W OT --> recommend rehabilitation or home with services Patient has been accepted to STR at [place], insurance has approved, EMS transport tomorrow 2. HFpEF with LVEF 60% C/W Furosemide 40mg PO BID Echocardiogram as noted above 3. Allergies with post-nasal drip C/W Fluticasone nasal spray, saline nasal spray, Mucinex, Patanol eye drops 4. DM C/W SSI AC/HS, FSBS AC/HS, hypoglycemic protocol, consistent carbohydrate diet Will transition to patient's home dose of Metformin at time of discharge 5. Tobacco dependent C/W Nicotine replacement C/W smoking cessation counseling Continued tobacco use is complicating care and medical exacerbations 6. Depression C/W Escitalopram 7. HTN C/W Atenolol DISPOSITION: Accepted for STR at [place], insurance approved, transport t omorrow. VS, I&O, 24H, Fishbone Vital Signs/I&O Vital Signs Date Time Temp Pulse Resp B/P (MAP) Pulse Ox O2 Delivery O2 Flow Rate FiO2 04/26/19 08:33 90 134/68 04/26/19 06:00 96.9 18 95 04/25/19 21:00 2.0 I&O- Last 24 Hours up to 6 AM 04/26/19 05:59 Intake Total 880 ml Output Total 800 ml Balance 80 ml Laboratory Data 24H LABS Laboratory Tests 2 04/25/19 11:34: Bedside Glucose (Misc Panel) 277H 04/25/19 16:48: Bedside Glucose (Misc Panel) 241H 04/25/19 20:27: Bedside Glucose (Misc Panel) 209H 04/26/19 05:44: Nucleated Red Blood Cells % (auto) 0.0, Anion Gap 3L, Glomerular Filtration Rate > 60.0, Blood Urea Nitrogen 16, Creatinine 0.71, Sodium Level 141, Potassium Level 3.9, Chloride Level 99, Carbon Dioxide Level 39H, Calcium Level 8.3L CBC/BMP Laboratory Tests 04/26/19 05:44 Red Blood Count 3.49 L, Mean Corpuscular Volume 98.9 H, Mean Corpuscular Hemoglobin 31.5, Mean Corpuscular Hemoglobin Concent 31.9 L, Red Cell Distributi on Width 14.6 H, Calcium Level 8.3 L KATHY ALLAN DO Apr 26, 2019 10:48
[2019-04-26] MEDS: ALBUTEROL SULFATE 2.5 MG/0.5 ML INH NEB SOLN NEB PRN (11:57)
[2019-04-26] MEDS: ACETAMINOPHEN TAB 650MG DOSE (2X325MG) PO PRN (13:56)
[2019-04-26 14:00] VITALS: BP 138/63
[2019-04-26 22:00] VITALS: BP 140/73
[2019-04-27] MEDS: ALBUTEROL SULFATE 2.5 MG/0.5 ML INH NEB SOLN NEB SCH ×2 (01:40→08:00)
[2019-04-27 06:00] VITALS: BP 159/78
[2019-04-27 06:46] LABS: HEMATOCRIT 34.2 % (36.0-47.0); HEMOGLOBIN 10.7 g/dl (12.0-15.5); MEAN CORPUSCULAR HEMOGLOBIN 30.9 pg (27.0-33.0); MEAN CORPUSCULAR HGB CONC 31.3 g/dl (32.0-36.5); MEAN CORPUSCULAR VOLUME 98.8 fl (80.0-96.0); PLATELET COUNT, AUTOMATED 257 10^3/uL (150-450); RED BLOOD COUNT 3.46 10^6/uL (4.00-5.40); WHITE BLOOD COUNT 12.1 10^3/uL (4.0-10.0)
[2019-04-27 07:02] LABS: BLOOD UREA NITROGEN 13 MG/DL (7-18); CALCIUM LEVEL 8.2 MG/DL (8.8-10.2); CARBON DIOXIDE LEVEL 39 MEQ/L (21-32); CHLORIDE LEVEL 100 MEQ/L (98-107); GLOMERULAR FILTRATION RATE > 60.0 (>39); GLUCOSE, FASTING 111 MG/DL (70-100); POTASSIUM SERUM 3.9 MEQ/L (3.5-5.1); SODIUM LEVEL 141 MEQ/L (136-145)
--- NOTE | 2019-04-27 07:38 | DS.PDOC ---
Discharge Summary General Date of Admission Apr 12, 2019 at 22:17 Date of Discharge 04/27/2019 Attending Physician: CLAYTON LOUIS DO Specialist/Consultants Involve: BETTIE BLANKENSHIP MD Discharge Summary PROCEDURES PERFORMED DURING STAY: 1. Echocardiogram - Normal sinus rhythm without intraventricular conduction disturbance. M-mode two-dimensional echocardiography was performed with pulsed, continuous wave, color flow and tissue Doppler studies. Normal left ventricular size with wall thickness upper limits of normal. Localized proximal septal flattening suggestive of right ventricular pressure overload but otherwise normal left ventricular wall motion. Left atrial size upper limits of normal with Doppler evidence of an impairment of left ventricular (LV) diastolic function and current estimated mean left atrial pressure was at least mildly increased. Normal right heart chamber sizes and motion with mild right ventricular free wall hypertrophy and Doppler evidence of moderate pulmonary hypertension. Normal inferior vena cava (IVC) size and collapse against an elevated central venous pressure. Mild aortic valvular sclerosis without functional abnormality. Mild mitral annular calcification with very mild insufficiency. Normal appearing tricuspid valve with mild insufficiency. No apparent intracardiac mass or pericardial effusion. ADMITTING DIAGNOSES: 1. Acute hypercarbic respiratory failure secondary to COPD exacerbation secondary to viral syndrome 2. DM 3. Depression 4. HTN 5. DLP 6. GERD DISCHARGE DIAGNOSES: 1. Hypercarbic respiratory failure secondary to COPD exacerbation secondary to human rhinovirus/enterovirus 2. HFpEF with LVEF 60% 3. Allergies with post-nasal drip 4. DM 5. Tobacco depedence 6. Depression 7. HTN COMPLICATIONS/CHIEF COMPLAINT: Respiratory Failure. HISTORY OF PRESENT ILLNESS: Ms. Ang is a 73-year-old female who presents to [facility] as a direct admission from [facility]. Information regarding her presentation and admission to [facility] and transfer to [facility] is obtained from chart review. The patient had presented to [facility] with respiratory distress that had been worsening. Apparently she was having difficulty speaking and was only speaking in single words. Her shortness of breath was worsened by cough which appeared to improve with oxygen and sitting upright. She denied fevers, chills, chest pain. [facility] ED evaluation revealed elevated BP at 177/87 with a respiratory rate of 24 and oxygenation of 48%. An ABG revealed a pH of 7.16, pCO2 121.4, pO2 203.7. A CBC revealed a WBC 15.9, and a BMP revealed a BUN/Cr 20/0.6. BNP 632. [facility] ED ordered BiPAP, Duonebs, SoluMedrol, and Lasix after obtaining a CXR. Patient was also administered Ceftriaxone and Azithromycin. Decision was made to transfer patient to [facility] for further evaluation and consultation with pulmonar y/critical care. ABG prior to transfer was pH 7.23, pCO2 99.6, pO2 82. Hospitalist, Dr. Shook, was the accepting physician at [facility]. Patient was previously hospitalized at [facility] in 2016 for similar symptoms. She had reported at that time shortness of breath, wheezing and bilateral lower extremity swelling over the prior several days. She had reported that her allergies had worsened and that she had developed a post-nasal drip. Furthermore, the patient reported a dry cough with clear mucous production. She had been using her nebulizer, but it was not providing relief. Apparently she had been speaking to a family member and they had noted that she appeared out of breath and was wheezing. The patient had measured her oxygen saturation and it ranged 87-88% on 2L NC. Patient said that she did wear oxygen at night, but had been wearing it throughout the day over the prior several days. She was admitted at that time for a COPD exacerbation and to rule out CHF. HOSPITAL COURSE: Patient was admitted and started on BiPAP. Pulmonary/critical care consult was placed. Recommended follow-up ABG. Started Duoneb's scheduled and as needed, IV Methylprednisolone (which was tapered and switched to oral Prednisone - patient to complete course of Prednisone at half-way), and IV Ceftriazone 1gm Q24H. Pulmonology recommended discontinuing Ceftriaxone and continuing Azithromycin. Patient was started on Doxycycline for a 5-day course. Started Lasix as BNP was elevated. Incruse and BREO were held. Pulmonary medicine recommended restarting these medications upon discharge, if possible. Ordered sputum culture and gram stain (negative), respiratory panel (positive for human rhinovirus/enterovirus), procalcitonin (negative), and daily labs. Patient is a DNR/DNI. Followed protocols for diabetes management. Held Metformin (restarted at time of discharge). Continued antidepressant. Continued patient's Atenolol, but held Furosemide (restarted due to elevated BNP and history of CHF) and Olmesartan due to hypotension. Olmesartan restarted at time of discharge. Patient was made NPO so Atorvastatin, Ranitidine, and Omeprazole were held (all were restarted at time of discharge). Started a nasal spray, Flonase, Mucinex, and Patanol eye drops for allergies. Patient was co unseled throughout hospitalization regarding her smoking. She was started on nicotine replacement and offered smoking cessation counseling. Pulmonary medicine recommended continuing IC/LABA/LAMA medications. PT/OT continued to work with patient and recommended that patient continue rehabilitative services upon medical discharge. Patient improved clinically throughout hospitalization and was stable at time of discharge to [facility] for continued rehabilitation. DISCHARGE MEDICATIONS: Please see below. ALLERGIES: Please see below. PHYSICAL EXAMINATION ON DISCHARGE: VITAL SIGNS: Please see below. GENERAL: Obese female, alert and conversant, laying in bed in the rec umbent position, no acute distress. HEENT: Atraumatic, normocephalic, PERRL, EOMI, wears spectacles, nasal cannula in place. CARDIOVASCULAR: Regular rate and rhythm, normal S1 and S2, no murmur, rub, click. RESPIRATORY: Diminished breath sounds throughout, but improved airway movement, rhonchi, but no audible wheeze, crackles. ABDOMINAL: Round, soft, non-tender, non-distended. EXTREMITIES: +1-2 pitting edema noted, peripheral pulses equal and symmetrical, +2. NEUROLOGICAL: CN II-XII grossly intact. PSYCHOLOGICAL: Mood and affect appropriate. LABORATORY DATA: Please see below. IMAGIN. Portable chest x-ray - Chronic changes. No focal consolidation. PROGNOSIS: Stable. ACTIVITY: Ambulate with rolling walker. DIET: Consistent carbohydrate. DISCHARGE PLAN: See below. DISPOSITION: [facility]. DISCHARGE INSTRUCTIONS: 1. PCP in 7-[address] Verdin in 1 month. 3. Complete Prednisone taper as directed - 20mg PO daily until 04/29/2019, 10mg PO daily starting on 04/30/2019 for 5 days, 5mg PO daily starting on 05/05/2019 for 5 days. 4. Take all medications as prescribed. 5. Stop smoking. 6. Return to the nearest Emergency Department should your symptoms worsen or persist. ITEMS TO FOLLOWUP ON ON OUTPATIENT: 1. COPD 2. Smoking cessation. DISCHARGE CONDITION: Stable. TIME SPENT ON DISCHARGE: 35 minutes. Vital Signs/I&Os Vital Signs Date Time Temp Pulse Resp B/P (MAP) Pulse Ox O2 Delivery O2 Flow Rate FiO2 04/27/19 06:00 97.5 70 20 159/78 (105) 95 04/26/19 20:00 2.0 I&O- Last 24 Hours up to 6 AM 04/27/19 06:00 Intake Total 2080 ml Output Total 875 ml Balance 1205 ml Laboratory Data Labs 24H Laboratory Tests 2 04/26/19 11:46: Bedside Glucose (Misc Panel) 347H 04/26/19 16:32: Bedside Glucose (Misc Panel) 250H 04/26/19 19:44: Bedside Glucose (Misc Panel) 248H 04/27/19 06:17: Nucleated Red Blood Cells % (auto) 0.0, Anion Gap 2L, Glomerular Filtration Rate > 60.0, Blood Urea Nitrogen 13, Creatinine 0.70, Sodium Level 141, Potassium Level 3.9, Chloride Level 100, Carbon Dioxide Level 39H, Calcium Level 8.2L CBC/BMP Laboratory Tests 04/27/19 06:17 Red Blood Count 3.46 L, Mean Corpuscular Volume 98.8 H, Mean Corpuscular Hemoglobin 30.9, Mean Corpuscular Hemoglobin Concent 31.3 L, Red Cell Distribution Width 14.6 H, Calcium Level 8.2 L FSBS Laboratory Tests Test 04/26/19 11:46 04/26/19 16:32 04/26/19 19:44 Range/Units Bedside Glucose (Misc Panel) 347 250 248 83-110 MG/DL Discharge Medications Scheduled Albuterol Sulfate (Albuterol Sulfate) 2.5 Mg/0.5 Ml Vial.neb, 2.5 MG NEB RQ6H Atenolol (Atenolol) 50 Mg Tablet, 50 MG PO DAILY Atorvastatin Calcium (Atorvastatin Calcium) 40 Mg Tablet, 40 MG PO DAILY, (Reported) Budesonide/Formoterol (Symbicort 160-4.5 Mcg Inhaler) 6 Gm Hfa.aer.ad, 2 PUFF INH BID Enoxaparin Sodium (Lovenox) 40 Mg/0.4 Ml Syringe, 40 MG SC DAILY Escitalopram Oxalate (Escitalopram Oxalate) 10 Mg Tablet, 20 MG PO DAILY Fluticasone Propionate (Fluticasone Propionate) 16 Gm [place].susp, 2 SPRAY NARES DAILY Fluticasone/Vilanterol (Breo Ellipta 200-25 Mcg INH) 1 Each Blst.w.dev, 1 PUFF INH DAILY, (Reported) Furosemide (Furosemide) 40 Mg Tablet, 40 MG PO BID@ Guaifenesin (Mucinex) 600 Mg Tab.er.12h, 600 MG PO BID Metformin HCl (Metformin HCl) 500 Mg Tablet, 500 MG PO DAILY, (Reported) Nicotine (Nicotine Patch) 7 Mg Patch.td24, 1 PATCH TD DAILY Olmesartan Medoxomil (Olmesartan Medoxomil) 20 Mg Tablet, 40 MG PO DAILY, (Reported) Omeprazole (Omeprazole) 20 Mg Capsule.dr, 20 MG PO DAILY, (Reported) Prednisone (Prednisone) 20 Mg Tablet, 20 MG PO DAILY 04/25/2019 - 04/30/2019 Prednisone (Prednisone) 10 Mg Tablet, 10 MG PO DAILY 04/30/2019 - 05/05/2019 Prednisone (Prednisone) 5 Mg Tablet, 5 MG PO DAILY 05/05/2019 - 05/10/2019 Ranitidine Hcl (Ranitidine HCl) 150 Mg Tablet, 1 TAB PO DAILY, (Reported) Tiotropium [place] Monohydrate (Spiriva) 18 Mcg Cap.w.dev, 1 INHALATION INH DAILY@08 Umeclidinium [place] (Incruse Ellipta) 62.5 Mcg Blst.w.dev, 1 PUFF INH DAILY, (Reported) Scheduled PRN Acetaminophen (Acetaminophen) 325 Mg Tablet, 650 MG PO Q6HP PRN for PAIN / FEVER Albuterol Sulfate (Albuterol Sulfate) 2.5 Mg/0.5 Ml Vial.neb, 2.5 MG NEB Q2HP PRN for SOB/WHEEZING Nystatin (Nystatin Oral Susp) 100,000 Unit/1 Ml Oral.susp, 5 ML SS Q6H PRN for oral candidiasis Olopatadine HCl (Olopatadine HCl) 0.1% 5ML Drops, 1 DROP OU BID@ PRN for dry eye [Sodium Chloride Nasal [place]] 45 SPRAY/45 ML NASPR, 2 SPRAY NA Q2HP PRN for NASAL DRYNESS Allergies Coded Allergies: Penicillins (Verified Allergy, Severe, 04/13/19) shellfish derived (Verified Allergy, Severe, 04/13/19) Sulfa (Sulfonamide Antibiotics) (Verified Allergy, Intermediate, 04/13/19) KATHY ALLAN DO Apr 27, 2019 07:38
[2019-04-27] MEDS: ESCITALOPRAM OXALATE 10 MG TAB (LEXAPRO) PO SCH (07:59)
[2019-04-27] MEDS: FUROSEMIDE 40 MG TAB PO SCH (07:59)
[2019-04-27] MEDS: predniSONE 20 MG TAB PO SCH (07:59)
[2019-04-27] MEDS: guaiFENesin ER 600 MG TAB PO SCH (07:59)
[2019-04-27] MEDS: NICOTINE 7 MG/24 HR TRANSDERMAL TD SCH (08:00)
[2019-04-27] MEDS: HumaLOG INSULIN (NovoLOG) PER UNIT SC SCH ×2 (08:00→11:57)
[2019-04-27] MEDS: ENOXAPARIN 40 MG/0.4 ML SYRINGE (J1650) SC SCH (08:00)
[2019-04-27 08:01] VITALS: BP 149/69
[2019-04-27] MEDS: FLUTICASONE PROP 0.05% NASAL SPRAY 16 GM (FLONASE) NARES SCH (08:01)
[2019-04-27] MEDS: ATENOLOL 50 MG TAB PO SCH (08:01)
[2019-04-27] MEDS: SYMBICORT 160/4.5MCG INHALER 6GM INH SCH (08:45)
[2019-04-27] MEDS: TIOTROPIUM INHALER/CAPSULE (SPIRIVA) INH SCH (08:45)
[2019-04-30] MEDS ORDERED: predniSONE 10 MG TAB PO SCH (09:00)
[2019-05-05] MEDS ORDERED: predniSONE 5 MG TAB PO SCH (09:00)
== END 2019-04-27 12:35 | DRG 189 ==
LOC: M ICU 22:17 → M MSPAV 04-18 15:25
PROVIDERS: ADMIT Student in an Organized Health Care Education/Training Program; ATTEND Family Medicine
DX: J96.02 Acute respiratory failure with hypercapnia (principal); J44.1 Chronic obstructive pulmonary disease with (acute) exacerbation; F17.210 Nicotine dependence, cigarettes, uncomplicated; E11.9 Type 2 diabetes mellitus without complications; I10 Essential (primary) hypertension; F32.9 Major depressive disorder, single episode, unspecified; Z66 Do not resuscitate; Z79.899 Other long term (current) drug therapy; Z88.0 Allergy status to penicillin; Z88.2 Allergy status to sulfonamides; Z91.013 Allergy to seafood; I27.20 Pulmonary hypertension, unspecified; F41.9 Anxiety disorder, unspecified; M19.90 Unspecified osteoarthritis, unspecified site; K21.9 Gastro-esophageal reflux disease without esophagitis; G47.33 Obstructive sleep apnea (adult) (pediatric); Z91.19 Patient's noncompliance with other medical treatment and regimen; E78.5 Hyperlipidemia, unspecified; I95.9 Hypotension, unspecified; B97.89 Other viral agents as the cause of diseases classified elsewhere

== ENCOUNTER → 2019-06-11 | Outpatient (CLI) | payer MEDICARE ==
[~2019-06-11] MED LIST: ACET1TAB55 PO; ALB2.5NEB NEB; ATEN50TA2 PO; ATOR40TA75 PO; BREO1INH3 INH; ESCI10TA2 PO; ESCI20TA PO; FLUTISP NARES; FURO40TA2 PO; INCR1INH INH; IPRA6SP; LOVE1INJ SC; METF500T13 PO; MUCI600T31 PO; NICO7PA TD; NYST50SS SS; OLME20TA2 PO; OLOP0.1D OU; OMEP-218 PO; PRED10TA2 PO; PRED20TA PO; PRED5TA PO; PROAAER10 INH; RANI15TA PO; SYMB16INH INH; Sodium Chloride Nasal Spray; TIOT18INH INH
--- NOTE | 2019-07-13 23:11 | SLEEPCENT ---
DATE OF PROCEDURE: 06/11/2019 Ordered by: Dr. Sutton Nocturnal polysomnography was performed for the titration of pressure therapy in this patient with obstructive sleep apnea syndrome and chronic hypercarbic respiratory failure. For testing, a ResMed F20 full face mask of small size was used, initial bilevel pressure of 12 over 8 was applied to the circuit the lights extinguished. 8 hours and 46 minutes of data were reviewed. There are 348 minutes of sleep identified. Sleep latency was prolonged at 63.5 minutes. REM latency was prolonged at 253 minutes. Sleep architecture improved late in the study on optimal pressure therapy. There two REM cycles noted. Overall sleep efficiency 67.2%. The electrocardiogram showed a sinus rhythm with an average heart rate of 63 beats per minute. EEG showed significant alpha intrusion into non-REM stages. Respiratory events were persistent prompting an increase in bilevel pressure. Optimal pressure was found to be 15 inspiratory over expiratory of 10. There was some limb activity noted throughout the study, several trains of 30 events. Limb movement arousal index is 21. IMPRESSION 1. Obstructive sleep apnea syndrome (G47.33). 2. Periodic limb movement disorder (G47.61). Limb movement arousal index 21. RECOMMENDATIONS Nightly use of pressure therapy using bilevel device inspiratory 15 over expiratory 10 would appear to be optimal for this patient's obstructive sleep apnea syndrome. Pending clinical response, interventions to reduce the frequency of arousals from limb activity may also be helpful.
== END ==
LOC: M SLEEP 20:00
PROVIDERS: ATTEND Internal Medicine Pulmonary Disease
DX: G47.33 Obstructive sleep apnea (adult) (pediatric) (principal); G47.61 Periodic limb movement disorder

== ENCOUNTER 2022-06-13 02:01 | Inpatient (IN) | payer MEDICARE ==
[~2022-06-13] VITALS: Ht 162.6 cm; Wt 101.9 kg
[2022-06-13] VITALS (10 sets, daily range): BP systolic 118–160; BP diastolic 57–84; O2SAT 95
[~2022-06-13 02:01] MED LIST changes: +ESCI10TA16 PO; -ESCI10TA2 PO; -ESCI20TA PO; +ESCI20TA16 PO; -OLOP0.1D OU; +OLOP5DRO16 OU; +OMEP-173 PO; -OMEP-218 PO
[2022-06-13] MEDS ORDERED: ALBUTEROL SULFATE 2.5 MG/0.5 ML INH NEB SOLN NEB PRN (05:35)
[2022-06-13] MEDS ORDERED: GLUCOSE 4GM CHEW TABLET PO PRN (06:00)
[2022-06-13] MEDS ORDERED: DEXTROSE 50% 50 ML SYRINGE IV PRN (06:00)
[2022-06-13] MEDS ORDERED: GLUCAGON INJ 1MG VIAL SC PRN (06:00)
[2022-06-13 06:11] LABS: ABG BASE EXCESS 8.9 (-2.0-2.0); ABG HCO3 35.2 MEQ/L (22.0-26.0); ABG O2 SATURATION 97.5 % (95.0-99.0); ABG PARTIAL PRESSURE CO2 58.1 mmHg (35.0-45.0); ABG PARTIAL PRESSURE O2 100.1 mmHg (75.0-100.0); ABG STANDARD HCO3 32.6 MEQ/L (22.0-26.0)
[2022-06-13 06:15] LABS: BASO % 0.3 % (0.0-1.0); HEMATOCRIT 35.6 % (36.0-47.0); HEMOGLOBIN 10.7 g/dl (12.0-15.5); LYMPH # 0.6 10^3/uL (1.5-5.0); LYMPH % 7.3 % (24.0-44.0); MEAN CORPUSCULAR HEMOGLOBIN 29.5 pg (27.0-33.0); MEAN CORPUSCULAR HGB CONC 30.1 g/dl (32.0-36.5); MEAN CORPUSCULAR VOLUME 98.1 fl (80.0-96.0); MONO # 0.1 10^3/uL (0.0-0.8); MONO % 1.8 % (2.0-8.0); NEUTROPHILS # 6.9 10^3/uL (1.5-8.5); NEUTROPHILS % 90.1 % (36.0-66.0); PLATELET COUNT, AUTOMATED 269 10^3/uL (150-450); RED BLOOD COUNT 3.63 10^6/uL (4.00-5.40); WHITE BLOOD COUNT 7.6 10^3/uL (4.0-10.0)
[2022-06-13] MEDS ORDERED: BUME1TAB3 PO (07:28)
[2022-06-13] MEDS ORDERED: AZIT-12 PO (07:28)
[2022-06-13] MEDS ORDERED: REST0.05 OU (07:28)
[2022-06-13] MEDS ORDERED: GLIP5TAB20 PO (07:28)
[2022-06-13] MEDS ORDERED: INCR1INH INH (07:28)
[2022-06-13] MEDS ORDERED: METF10004 PO (07:28)
[2022-06-13] MEDS ORDERED: BREO1INH3 INH (07:28)
[2022-06-13] MEDS ORDERED: ATOR40TA75 PO (07:28)
[2022-06-13] MEDS ORDERED: OMEP40CA5 PO (07:28)
[2022-06-13] MEDS ORDERED: CARV3.12 PO (07:28)
[2022-06-13] MEDS ORDERED: FLON1SPR NARES (07:28)
[2022-06-13] MEDS ORDERED: PRED5TA PO (07:28)
[2022-06-13] MEDS ORDERED: ALBU2.5V10 INH (07:28)
[2022-06-13] MEDS ORDERED: LEXA1TAB2 PO (07:28)
[2022-06-13] MEDS ORDERED: ENTR1TAB PO (07:28)
[2022-06-13] MEDS ORDERED: LORA-674 PO (07:28)
[2022-06-13] MEDS ORDERED: NS 1,000 ML IV SCH (08:05)
[2022-06-13] MEDS ORDERED: HOME MED LIST COMPLETE! XX SCH (08:05)
[2022-06-13] MEDS: IPRATROPIUM 0.5MG/ALBUTEROL 2.5MG INH SOL UD 3ML (DUONEB) NEB SCH ×3 (08:12→20:00)
[2022-06-13] MEDS: SYMBICORT 160/4.5MCG INHALER 6GM INH SCH ×2 (08:26→20:00)
[2022-06-13] MEDS: TIOTROPIUM INHALER/CAPSULE (SPIRIVA) INH SCH (08:26)
[2022-06-13] MEDS: INSULIN LISPRO (NovoLOG) PER UNIT SC SCH ×4 (10:07→20:44)
[2022-06-13] MEDS: methylPREDNISolone 40MG 1ML VIAL IV SCH ×2 (10:07→16:13)
[2022-06-13] MEDS: LevoFLOXacin IV 750 MG in IV 1 EA IV SCH (10:08)
[2022-06-13] MEDS: HEPARIN SOD (PORCINE) 5000UNITS/ML 1ML VIAL/SYRINGE SC SCH ×2 (10:08→20:42)
[2022-06-13] MEDS: OMEPRAZOLE 20MG CAP PO SCH (14:47)
[2022-06-13] MEDS: ACETAMINOPHEN TAB 650MG DOSE (2X325MG) PO PRN (16:13)
[2022-06-13] MEDS ORDERED: FLUTICASONE PROP 0.05% NASAL SPRAY 16 GM (FLONASE) NARES PRN (16:40)
[2022-06-13] MEDS: ENTRESTO 24-26MG TABLET (SACUBITRIL/VALSARTAN) PO SCH (20:42)
[2022-06-13] MEDS: CARVedilol 3.125 MG TAB PO SCH (20:43)
[2022-06-13] MEDS: ATORVASTATIN 20 MG TAB PO SCH (20:43)
[2022-06-14] MEDS: methylPREDNISolone 40MG 1ML VIAL IV SCH ×3 (00:46→16:35)
[2022-06-14] MEDS: ACETAMINOPHEN TAB 650MG DOSE (2X325MG) PO PRN ×2 (00:47→14:19)
[2022-06-14] MEDS: IPRATROPIUM 0.5MG/ALBUTEROL 2.5MG INH SOL UD 3ML (DUONEB) NEB SCH ×5 (01:16→19:51)
[2022-06-14 04:57] VITALS: BP 144/72
[2022-06-14 06:02] LABS: HEMATOCRIT 32.4 % (36.0-47.0); HEMOGLOBIN 10.5 g/dl (12.0-15.5); MEAN CORPUSCULAR HEMOGLOBIN 31.5 pg (27.0-33.0); MEAN CORPUSCULAR HGB CONC 32.4 g/dl (32.0-36.5); MEAN CORPUSCULAR VOLUME 97.3 fl (80.0-96.0); PLATELET COUNT, AUTOMATED 289 10^3/uL (150-450); RED BLOOD COUNT 3.33 10^6/uL (4.00-5.40); WHITE BLOOD COUNT 11.3 10^3/uL (4.0-10.0)
[2022-06-14 06:35] LABS: ALBUMIN 3.1 GM/DL (3.2-5.2); ALT/SGPT 32 U/L (12-78); BILIRUBIN,TOTAL 0.2 MG/DL (0.2-1.0); BLOOD UREA NITROGEN 20 MG/DL (7-18); CALCIUM LEVEL 9.3 MG/DL (8.8-10.2); CARBON DIOXIDE LEVEL 33 MEQ/L (21-32); CHLORIDE LEVEL 99 MEQ/L (98-107); GLOMERULAR FILTRATION RATE > 60.0 (>39); GLUCOSE, FASTING 259 MG/DL (70-100); POTASSIUM SERUM 4.3 MEQ/L (3.5-5.1); SODIUM LEVEL 138 MEQ/L (136-145); TOTAL PROTEIN 6.4 GM/DL (6.4-8.2)
[2022-06-14] MEDS: TIOTROPIUM INHALER/CAPSULE (SPIRIVA) INH SCH (07:15)
[2022-06-14] MEDS: SYMBICORT 160/4.5MCG INHALER 6GM INH SCH ×2 (07:15→19:51)
[2022-06-14] MEDS: INSULIN LISPRO (NovoLOG) PER UNIT SC SCH ×4 (08:15→20:19)
[2022-06-14] MEDS: ESCITALOPRAM OXALATE 10 MG TAB (LEXAPRO) PO SCH (08:19)
[2022-06-14] MEDS: BUMETANIDE 1 MG TAB PO SCH ×2 (08:19→14:18)
[2022-06-14] MEDS: OMEPRAZOLE 20MG CAP PO SCH (08:19)
[2022-06-14] MEDS: ENTRESTO 24-26MG TABLET (SACUBITRIL/VALSARTAN) PO SCH ×2 (08:20→20:19)
[2022-06-14] MEDS: LORATADINE 10 MG TAB PO SCH (08:20)
[2022-06-14] MEDS: CARVedilol 3.125 MG TAB PO SCH ×2 (08:20→20:20)
[2022-06-14] MEDS: HEPARIN SOD (PORCINE) 5000UNITS/ML 1ML VIAL/SYRINGE SC SCH ×2 (08:20→20:19)
[2022-06-14] MEDS: LevoFLOXacin IV 750 MG in IV 1 EA IV SCH (08:21)
[2022-06-14 10:00] VITALS: O2SAT 96
[2022-06-14 15:00] VITALS: BP 117/65
[2022-06-14] MEDS: ATORVASTATIN 20 MG TAB PO SCH (20:20)
[2022-06-14 21:00] VITALS: O2SAT 95
[2022-06-14 22:00] VITALS: BP 147/82
[2022-06-15] MEDS: methylPREDNISolone 40MG 1ML VIAL IV SCH ×3 (00:18→17:21)
[2022-06-15] MEDS: IPRATROPIUM 0.5MG/ALBUTEROL 2.5MG INH SOL UD 3ML (DUONEB) NEB SCH ×4 (01:20→19:46)
[2022-06-15 04:53] VITALS: BP 148/88
[2022-06-15 06:06] LABS: HEMATOCRIT 34.9 % (36.0-47.0); HEMOGLOBIN 10.7 g/dl (12.0-15.5); MEAN CORPUSCULAR HEMOGLOBIN 29.6 pg (27.0-33.0); MEAN CORPUSCULAR HGB CONC 30.7 g/dl (32.0-36.5); MEAN CORPUSCULAR VOLUME 96.7 fl (80.0-96.0); PLATELET COUNT, AUTOMATED 288 10^3/uL (150-450); RED BLOOD COUNT 3.61 10^6/uL (4.00-5.40); WHITE BLOOD COUNT 10.6 10^3/uL (4.0-10.0)
[2022-06-15 06:47] LABS: ALBUMIN 3.1 GM/DL (3.2-5.2); ALT/SGPT 37 U/L (12-78); BILIRUBIN,TOTAL 0.1 MG/DL (0.2-1.0); BLOOD UREA NITROGEN 30 MG/DL (7-18); CALCIUM LEVEL 9.1 MG/DL (8.8-10.2); CARBON DIOXIDE LEVEL 33 MEQ/L (21-32); CHLORIDE LEVEL 98 MEQ/L (98-107); CREATININE FOR GFR 0.83 MG/DL (0.55-1.30); GLOMERULAR FILTRATION RATE > 60.0 (>39); GLUCOSE, FASTING 293 MG/DL (70-100); POTASSIUM SERUM 4.1 MEQ/L (3.5-5.1); SODIUM LEVEL 138 MEQ/L (136-145); TOTAL PROTEIN 6.5 GM/DL (6.4-8.2)
[2022-06-15] MEDS: TIOTROPIUM INHALER/CAPSULE (SPIRIVA) INH SCH (07:55)
[2022-06-15] MEDS: SYMBICORT 160/4.5MCG INHALER 6GM INH SCH ×2 (07:55→19:46)
[2022-06-15] MEDS: LevoFLOXacin IV 750 MG in IV 1 EA IV SCH (09:42)
[2022-06-15] MEDS: BUMETANIDE 1 MG TAB PO SCH ×2 (09:43→15:04)
[2022-06-15] MEDS: HEPARIN SOD (PORCINE) 5000UNITS/ML 1ML VIAL/SYRINGE SC SCH ×2 (09:43→21:48)
[2022-06-15] MEDS: ESCITALOPRAM OXALATE 10 MG TAB (LEXAPRO) PO SCH (09:44)
[2022-06-15] MEDS: LORATADINE 10 MG TAB PO SCH (09:44)
[2022-06-15] MEDS: CARVedilol 3.125 MG TAB PO SCH ×2 (09:44→21:58)
[2022-06-15] MEDS: OMEPRAZOLE 20MG CAP PO SCH (09:44)
[2022-06-15] MEDS: INSULIN LISPRO (NovoLOG) PER UNIT SC SCH ×4 (09:48→21:59)
[2022-06-15] MEDS: ENTRESTO 24-26MG TABLET (SACUBITRIL/VALSARTAN) PO SCH ×2 (09:53→21:48)
[2022-06-15] MEDS ORDERED: LEVO1TAB40 PO (11:21)
[2022-06-15] MEDS ORDERED: PRED10TA2 PO (11:21)
[2022-06-15 14:00] VITALS: BP 178/95
[2022-06-15 19:57] VITALS: BP 155/87
[2022-06-15] MEDS: ATORVASTATIN 20 MG TAB PO SCH (21:48)
[2022-06-16] VITALS (8 sets, daily range): BP systolic 122–180; BP diastolic 80–92; O2SAT 92–94
[2022-06-16] MEDS: methylPREDNISolone 40MG 1ML VIAL IV SCH ×3 (00:21→17:26)
[2022-06-16] MEDS: IPRATROPIUM 0.5MG/ALBUTEROL 2.5MG INH SOL UD 3ML (DUONEB) NEB SCH ×4 (01:14→19:29)
[2022-06-16 06:03] LABS: HEMATOCRIT 36.2 % (36.0-47.0); MEAN CORPUSCULAR HEMOGLOBIN 29.3 pg (27.0-33.0); MEAN CORPUSCULAR HGB CONC 30.4 g/dl (32.0-36.5); MEAN CORPUSCULAR VOLUME 96.3 fl (80.0-96.0); PLATELET COUNT, AUTOMATED 295 10^3/uL (150-450); RED BLOOD COUNT 3.76 10^6/uL (4.00-5.40); WHITE BLOOD COUNT 8.3 10^3/uL (4.0-10.0)
[2022-06-16 06:57] LABS: ALBUMIN 3.1 GM/DL (3.2-5.2); ALT/SGPT 38 U/L (12-78); BILIRUBIN,TOTAL 0.2 MG/DL (0.2-1.0); BLOOD UREA NITROGEN 32 MG/DL (7-18); CARBON DIOXIDE LEVEL 35 MEQ/L (21-32); CHLORIDE LEVEL 96 MEQ/L (98-107); CREATININE FOR GFR 0.92 MG/DL (0.55-1.30); GLOMERULAR FILTRATION RATE > 60.0 (>39); GLUCOSE, FASTING 307 MG/DL (70-100); SODIUM LEVEL 136 MEQ/L (136-145); TOTAL PROTEIN 6.3 GM/DL (6.4-8.2)
[2022-06-16] MEDS: SYMBICORT 160/4.5MCG INHALER 6GM INH SCH ×2 (07:31→19:29)
[2022-06-16] MEDS: TIOTROPIUM INHALER/CAPSULE (SPIRIVA) INH SCH (07:31)
[2022-06-16] MEDS: BUMETANIDE 1 MG TAB PO SCH ×2 (08:21→14:46)
[2022-06-16] MEDS: ESCITALOPRAM OXALATE 10 MG TAB (LEXAPRO) PO SCH (08:21)
[2022-06-16] MEDS: OMEPRAZOLE 20MG CAP PO SCH (08:21)
[2022-06-16] MEDS: ENTRESTO 24-26MG TABLET (SACUBITRIL/VALSARTAN) PO SCH ×2 (08:21→21:19)
[2022-06-16] MEDS: LORATADINE 10 MG TAB PO SCH (08:22)
[2022-06-16] MEDS: CARVedilol 3.125 MG TAB PO SCH ×2 (08:22→21:17)
[2022-06-16] MEDS: INSULIN LISPRO (NovoLOG) PER UNIT SC SCH ×4 (08:23→21:17)
[2022-06-16] MEDS: HEPARIN SOD (PORCINE) 5000UNITS/ML 1ML VIAL/SYRINGE SC SCH ×2 (08:23→21:17)
[2022-06-16] MEDS: LevoFLOXacin IV 750 MG in IV 1 EA IV SCH (08:23)
[2022-06-16] MEDS: ATORVASTATIN 20 MG TAB PO SCH (21:16)
[2022-06-16] MEDS: ACETAMINOPHEN TAB 650MG DOSE (2X325MG) PO PRN (21:28)
[2022-06-17] MEDS: methylPREDNISolone 40MG 1ML VIAL IV SCH ×2 (00:24→08:11)
[2022-06-17] MEDS: IPRATROPIUM 0.5MG/ALBUTEROL 2.5MG INH SOL UD 3ML (DUONEB) NEB SCH ×2 (02:00→07:29)
[2022-06-17 06:00] VITALS: BP 169/65
[2022-06-17] MEDS ORDERED: LevoFLOXacin 750 MG TABLET PO SCH (06:00)
[2022-06-17 06:21] LABS: HEMATOCRIT 34.2 % (36.0-47.0); HEMOGLOBIN 10.9 g/dl (12.0-15.5); MEAN CORPUSCULAR HEMOGLOBIN 30.8 pg (27.0-33.0); MEAN CORPUSCULAR HGB CONC 31.9 g/dl (32.0-36.5); MEAN CORPUSCULAR VOLUME 96.6 fl (80.0-96.0); PLATELET COUNT, AUTOMATED 288 10^3/uL (150-450); RED BLOOD COUNT 3.54 10^6/uL (4.00-5.40); WHITE BLOOD COUNT 8.2 10^3/uL (4.0-10.0)
[2022-06-17 07:01] LABS: ALT/SGPT 35 U/L (12-78); BILIRUBIN,TOTAL 0.3 MG/DL (0.2-1.0); BLOOD UREA NITROGEN 30 MG/DL (7-18); CALCIUM LEVEL 8.6 MG/DL (8.8-10.2); CARBON DIOXIDE LEVEL 35 MEQ/L (21-32); CHLORIDE LEVEL 97 MEQ/L (98-107); CREATININE FOR GFR 0.93 MG/DL (0.55-1.30); GLOMERULAR FILTRATION RATE > 60.0 (>39); GLUCOSE, FASTING 319 MG/DL (70-100); MAGNESIUM LEVEL 2.7 MG/DL (1.8-2.4); POTASSIUM SERUM 4.2 MEQ/L (3.5-5.1); SODIUM LEVEL 140 MEQ/L (136-145); TOTAL PROTEIN 6.1 GM/DL (6.4-8.2)
[2022-06-17] MEDS: TIOTROPIUM INHALER/CAPSULE (SPIRIVA) INH SCH (07:29)
[2022-06-17] MEDS: SYMBICORT 160/4.5MCG INHALER 6GM INH SCH (07:29)
[2022-06-17] MEDS: ESCITALOPRAM OXALATE 10 MG TAB (LEXAPRO) PO SCH (08:08)
[2022-06-17] MEDS: ENTRESTO 24-26MG TABLET (SACUBITRIL/VALSARTAN) PO SCH (08:08)
[2022-06-17] MEDS: BUMETANIDE 1 MG TAB PO SCH (08:08)
[2022-06-17] MEDS: CARVedilol 3.125 MG TAB PO SCH (08:09)
[2022-06-17] MEDS: OMEPRAZOLE 20MG CAP PO SCH (08:09)
[2022-06-17] MEDS: LORATADINE 10 MG TAB PO SCH (08:10)
[2022-06-17] MEDS: INSULIN LISPRO (NovoLOG) PER UNIT SC SCH (08:11)
[2022-06-17] MEDS: HEPARIN SOD (PORCINE) 5000UNITS/ML 1ML VIAL/SYRINGE SC SCH (08:11)
[2022-06-17] MEDS ORDERED: CARVedilol 3.125 MG TAB PO ONE (09:55)
[2022-06-17] MEDS ORDERED: CARV3.12 PO (09:56)
[2022-06-17 11:14] VITALS: O2SAT 95
[2022-06-17] MEDS ORDERED: AMOX875T2 PO (11:16)
[2022-06-17] MEDS ORDERED: PRED20TA PO (11:18)
[2022-06-17 11:36] VITALS: BP 130/69
[2022-06-17] MEDS ORDERED: CARVedilol 6.25 MG TAB PO SCH (21:00)
== END 2022-06-17 12:15 | disposition home or self-care (01) | DRG 189 ==
LOC: M ICU 05:03 → M MSPAV 18:39
PROVIDERS: ADMIT Internal Medicine Pulmonary Disease; ATTEND Family Medicine
DX: J96.21 Acute and chronic respiratory failure with hypoxia (principal); J44.1 Chronic obstructive pulmonary disease with (acute) exacerbation; L03.115 Cellulitis of right lower limb; N39.0 Urinary tract infection, site not specified; L03.116 Cellulitis of left lower limb; I27.81 Cor pulmonale (chronic); D64.9 Anemia, unspecified; I10 Essential (primary) hypertension; I27.20 Pulmonary hypertension, unspecified; K21.9 Gastro-esophageal reflux disease without esophagitis; Z99.81 Dependence on supplemental oxygen; E11.9 Type 2 diabetes mellitus without complications; E78.00 Pure hypercholesterolemia, unspecified; Z88.0 Allergy status to penicillin; Z91.013 Allergy to seafood; Z88.2 Allergy status to sulfonamides; Z79.899 Other long term (current) drug therapy

== ENCOUNTER → 2023-08-28 | Outpatient (REF) | payer MEDICARE ==
[~2023-08-28] MED LIST changes: +ALBU2.5V10 INH; +AMOX875T2 PO; +AZIT-12 PO; +BUME1TAB3 PO; +CARV3.12 PO; +ENTR1TAB PO; +FLON1SPR NARES; +FLUT50SP17 NARES; -FLUTISP NARES; +GLIP5TAB20 PO; +LEVO1TAB40 PO; +LEXA1TAB2 PO; +LORA-1041 PO; +METF10004 PO; +NYST-38 SS; -NYST50SS SS; -OLOP5DRO16 OU; +OLOP5DRO17 OU; +OMEP40CA5 PO; +REST0.05 OU
== END ==
LOC: M LAB REF 17:16
PROVIDERS: ATTEND Internal Medicine Pulmonary Disease
DX: R05.9 Cough, unspecified (principal)